=== PATIENT | female | born 1950 | race Two or more races ===

== ENCOUNTER 2025-02-10 11:36 | Inpatient (IN) | payer OTHER ==
[~2025-02-10] VITALS: Ht 160 cm; Wt 53.4 kg
--- NOTE | 2025-02-10 12:31 | ED.PDOC ---
History of Present Illness HPI Comments 74-year-old female BIBA with prior medical history of COPD (uses 4 L of O2 at home), AFib (takes Eliquis) and a chief complaint of generalized weakness. Patient's spouse reports that the patient has been having generalized weakness for three days in his he has been experiencing multiple ground level falls. Patient recently had his ground level fall yesterday and EMS were called on scene for which they did the vitals in noticed that the patient's blood pressure was low. Patient did deny transport to the hospital. Spouse reports that the patient had worsening generalized weakness last night as the patient was trying to get out of bed to use the bathroom associated with mumbling. When EMS arrived on scene today patient was placed in 18 on the left AC and was satting at high 80's on 4 L of O2 for which she uses at home. Denies any other symptoms at this time. Denies chills, fever, N/V/D, CP. No other associated symptoms, modifiers, recent injuries or sick contacts present at this time. Chief Complaint: General Weakness Time Seen by MD: 12:30 Reviewed Notes: Nurses Notes, Medications, Allergies Allergies: Coded Allergies: No Known Drug Allergy (Verified Allergy, Unknown, 02/10/25) Information Source: Patient Mode of Arrival: EMS Severity: Moderate Timing: Days Duration: Since onset, Days Prehospital treatment: None Past Medical History PAST MEDICAL HISTORY: AFIB (Takes Eliquis), COPD Past Medical History (Other): Uses 4 L of O2 at home Surgical History: Denies all surgeries DIRECTOR MONEY History: No Pertinent DIRECTOR MONEY History Family History Family History: Reviewed,noncontributory to illness, Unknown Social History Smoker: Non-Smoker Alcohol: Denies ETOH Use Drugs: Denies Drug Use Lives In: Home Constitutional: reports: weakness; denies: chills, diaphoresis, fatigue, fever, malaise, sweats, others EENTM: denies: blurred vision, double vision, ear bleeding, ear discharge, ear drainage, ear pain, ear ringing, eye pain, eye redness, hearing loss, mouth pain, mouth swelling, nasal discharge, nose bleeding, nose congestion, nose pain, photophobia, tearing, throat pain, throat swelling, voice changes, others Respiratory: reports: shortness of breath; denies: cough, hemoptysis, orthopnea, SOB at rest, SOB with excertion, stridor, wheezing, others Cardiovascular: denies: chest pain, dizzy spells, diaphoresis, Dyspnea on exertion, edema, irregular heart beat, left arm pain, lightheadedness, palpitations, PND, syncope, others Gastrointestinal: denies: abdomen distended, abdominal pain, blood streaked bowels, constipated, diarrhea, dysphagia, difficulty swallowing, hematemesis, melena, nausea, poor appetite, poor fluid intake, rectal bleeding, rectal pain, vomiting, others Genitourinary: denies: abnormal vagina bleeding, burning, dyspareunia, dysuria, flank pain, frequency, hematuria, incontinence, pain, , vagina discharge, urgency, others Neurological: denies: dizziness, fainting, headache, left sided numbness, left sided weakness, numbness, paresthesia, pre-existing deficit, right sided numbness, right sided weakness, seizure, speech problems, tingling, tremors, weakness, others Musculoskeletal: denies: back pain, gout, joint pain, joint swelling, muscle pain, muscle stiffness, neck pain, others Integumetry: denies: bruises, change in color, change in hair/nails, dryness, laceration, lesions, lumps, rash, wounds, others Allergic/Immunocompromised: denies: Difficulty Healing, Frequent Infections, Hives, Itching, others Hematologic/Lymphatic: denies: anemia, blood clots, easy bleeding, easy bruising, swollen glands, others Endocrine: denies: excessive hunger, excessive sweating, excessive thirst, excessive urination, flushing, intolerance to cold, intolerance to heat, unexplained weight gain, unexplained weight loss, others Psychiatric: denies: anxiety, bipolar disorder, depression, hopeless, panic disorder, schizophrenia, sleepless, suicidal, others All Other Systems: Reviewed and Negative Physical Exam Exam Comments Lungs are currently clear and the patient is mumbling at this time General Appearance: No Apparent Distress, Normal HEENT: Normal ENT Inspection, Pharynx Normal, TMs Normal Neck: Full Range of Motion, Non-Tender, Normal, Normal Inspection Respiratory: Chest Non-Tender, Lungs Clear, No Accessory Muscle Use, No Respiratory Distress, Normal Breath Sounds Cardiovascular: No Edema, No JVD, No Murmur, No Gallop, Normal Peripheral Pulses, Regular Rate/Rhythm Breast Exam: Deferred Gastrointestinal: No Organomegaly, Non Tender, No Pulsatile Mass, Normal Bowel Sounds, Soft Genitalia: Deferred Pelvic: Deferred Rectal: Deferred Extremities: No calf tenderness, Normal capillary refill, Normal inspection, Normal range of motion, Non-tender, No pedal edema Musculoskeletal : Apperance: Normal Neurologic: Alert, day camp counselor II-XII nml as Tested, No Motor Deficits, Normal Affect, Normal Mood, No Sensory Deficits Cerebellar Function: Normal Reflexes: Normal Skin: Dry, Normal Color, Warm Lymphatic: No Adenopathy Was a procedure done? Was a procedure done?: No Differential Dx Considerations may include: Pneumonia, urinary tract infection, sepsis, CHF exacerbation, COPD X-Ray, Labs, Meds, VS Vital Signs Date Time Temp Pulse Resp B/P (MAP) Pulse Ox O2 Delivery O2 Flow Rate FiO2 02/10/25 14:55 109 12 108/73 (85) 95 02/10/25 12:00 102 02/10/25 12:00 Nasal Cannula* 4 36 02/10/25 12:00 97.7 90 12 115/71 (86) 88 97.7 02/10/25 11:45 98.3 107 14 114/73 93 98.3 Lab Test 02/10/25 12:39 02/10/25 12:35 Range/Units White Blood Count 11.3 H 4.4-10.8 10^3/uL Red Blood Count 5.42 H 4.0-5.20 10^6/uL Hemoglobin 10.5 L 12.2-16.2 g/dL Hematocrit 36.0 36.0-46.0 % Mean Corpuscular Volume 66.3 L 80.0-100.0 fL Mean Corpuscular Hemoglobin 19.4 L 28.0-32.0 pg Mean Corpuscular Hemoglobin Concent 29.2 L 32.0-36.0 g/dL Red Cell Distribution Width 20.8 H 11.8-14.3 % Platelet Count 253 140-450 10^3/uL Mean Platelet Volume 9.1 6.9-10.8 fL Neutrophils (%) (Auto) 81.3 H 37.0-80.0 % Lymphocytes (%) (Auto) 5.3 L 10.0-50.0 % Monocytes (%) (Auto) 11.1 0.0-12.0 % Eosinophils (%) (Auto) 0.5 0.0-7.0 % Basophils (%) (Auto) 1.8 0.0-2.0 % Neutrophils # (Auto) 9.2 H 1.6-8.6 10 ^3/uL Lymphocytes # (Auto) 0.6 0.4-5.4 10 ^3/uL Monocytes # (Auto) 1.3 0-1.3 10 ^3/uL Eosinophils # (Auto) 0.1 0-0.8 10 ^3/uL Basophils # (Auto) 0.2 0-0.2 10 ^3/uL Nucleated Red Blood Cells 0.4 % Platelet Estimate Adequate Hypochromasia (manual) Slight Anisocytosis (manual) Slight Microcytosis Slight Sodium Level 146 H 136-145 mmol/L Potassium Level 3.8 3.5-5.1 mmol/L Chloride Level 105 98-107 mmol/L Carbon Dioxide Level 28 20-31 mmol/L Anion Gap 13 5-15 Blood Urea Nitrogen 31 H 9-23 mg/dL Creatinine 1.30 H 0.550-1.02 mg/dL Glomerular Filtration Rate Calc 43 >90 mL/min BUN/Creatinine Ratio 23.8 H 10.0-20.0 Serum Glucose 88 74-106 mg/dL Lactic Acid Level 1.8 0.4-2.0 mmol/L Calcium Level 8.1 L 8.7-10.4 mg/dL Total Bilirubin 1.3 H 0.2-1.0 mg/dL Aspartate Amino Transferase (AST) 69 H 13-40 U/L Alanine Aminotransferase (ALT) 41 H 7-40 U/L Alkaline Phosphatase 145 H 46-116 U/L Total Protein 5.2 L 5.7-8.2 g/dL Albumin 3.2 3.2-4.8 g/dL Urine Color Yellow Yellow Urine Clarity Clear Clear Urine pH 5.5 5.0-9.0 Urine Specific [place] 1.021 1.001-1.035 Urine Protein Trace H Negative Urine Ketones Trace Negative Urine Blood Negative Negative /uL Urine Nitrite Negative Negative Urine Bilirubin Negative Negative Urine Urobilinogen 2 H Negative mg/dL Urine Leukocyte Esterase Negative Negative /uL Urine RBC 1 0 - 4 /hpf Urine Microscopic WBC 5 0-5 /HPF Urine Squamous Epithelial Cells Few <5 /hpf Urine Bacteria Few H None Seen /hpf Urine Hyaline Casts Many 0 - 2 /lpf Urine Mucus Few None Seen Urine Glucose Normal Normal mg/dL Urine Opiates Screen Neg NEGATIVE Urine Fentanyl Screen Neg NEGATIVE Urine Barbiturates Screen Neg NEGATIVE Urine Phencyclidine Screen Neg NEGATIVE Urine Amphetamines Screen Neg NEGATIVE Urine Benzodiazepines Screen Pos NEGATIVE Urine Cocaine Screen Neg NEGATIVE Urine Cannabinoids Screen Pos NEGATIVE Current Medications Medications (Trade) Dose Ordered Sig/Nicolas Route Start Time Stop Time Status Last Admin Sodium Chloride 1,000 ml @ 1,000 mls/hr Q1H ONCE IV 02/10/25 14:45 02/10/25 15:44 02/10/25 15:02 X-Ray, Labs, Meds, VS Comment Patient will be admitted for generalized weakness, multiple falls, metabolic encephalopathy Recommend urology consult Recommend cardiology consult Signs of possible dehydration, patient given in his bolus Will recheck CMP and kidney function Patient hemodynamically stable Patient on 6 L non-rebreather Time of 1ST Reevaluation: 13:00 Reevaluation 1ST: Unchanged Patient Education/Counseling: Diagnosis, Treatment, Prognosis Family Education/Counseling: Diagnosis, Treatment, Prognosis SEPSIS Sepsis Screen Date sepsis recognized/suspect: Feb 10, 2025 Time Sepsis recognized/suspect: 1144 Recent Procedure: No On Antibiotic Therapy: No Respiratory Rate >20: No Heart Rate >90: No Temp<36 C (96.8 F) or >38.3 C: No SBP <90 or MAP <65 mmHG: No New Acute Mental Status Change: No Is the patient on CPAP, BIPAP,: No Physician Orders Chest Xray 1 View (02/10/25 12:21) Head Without Contrast (02/10/25 12:42) Sodium Chloride 0.9% (02/10/25 14:45) Vital Signs Date Time Temp Pulse Resp B/P (MAP) Pulse Ox O2 Delivery O2 Flow Rate FiO2 02/10/25 14:55 109 12 108/73 (85) 95 02/10/25 12:00 102 02/10/25 12:00 Nasal Cannula* 4 36 02/10/25 12:00 97.7 90 12 115/71 (86) 88 97.7 02/10/25 11:45 98.3 107 14 114/73 93 98.3 Laboratory Tests Test 02/10/25 12:39 Lactic Acid Level 1.8 mmol/L (0.4-2.0) White Blood Count 11.3 10^3/uL (4.4-10.8) H Medications Medications Dose Ordered Sig/Nicolas Route Start Time Stop Time Status Last Admin Dose Admin Sodium Chloride 1,000 ml @ 1,000 mls/hr Q1H ONCE IV 02/10/25 14:45 02/10/25 15:44 02/10/25 15:02 Departure 1 Departure Time of Disposition: 15:42 Impression: Primary Impression: Metabolic encephalopathy Additional Impressions: Hypernatremia Generalized weakness COPD (chronic obstructive pulmonary disease) Qualified Codes: J41.0 - Simple chronic bronchitis Disposition: ADMITTED INPATIENT Condition: Stable Critical Care Note Critical Care Time?: No Stability Stability form required: No Heart Score Heart Score: Heart Score Response (Comments) Value History N/A 0 EKG N/A 0 Age N/A 0 Risk Factors N/A 0 Troponin N/A 0 Total 0 I personally scribed for KENTON JEFFERS ([email or web address]) on 02/10/25 at 12:31. Electronically submitted by Atif Chew ([email or web address]). KENTON JEFFERS Feb 10, 2025 12:31
[2025-02-10 12:57] LABS: Hematocrit 36.0 % (36.0-46.0); Nucleated Red Blood Cells % 0.4 %
[2025-02-10 12:58] LABS: Hemoglobin 10.5 g/dL (12.2-16.2); Mean Corpuscular Hemoglobin 19.4 pg (28.0-32.0); Mean Corpuscular Volume 66.3 fL (80.0-100.0)
[2025-02-10 13:02] LABS: Urine Protein, UAD TRACE (Negative)
--- NOTE | 2025-02-10 13:03 | DVH ---
CHEST RADIOGRAPH Indication: sob Technique: Single frontal view of the chest was obtained COMPARISON: None FINDINGS: Lines and Tubes: None Lungs: Increased interstitial prominence. This may represent pulmonary vascular congestion and/or viral pneumonia. Lucency in the left lung apex is felt to represent artifact versus possible small left apical pneumothorax. Pleura: No pleural effusion Cardiomediastinal contours: Cardiomegaly. Bones: Unremarkable IMPRESSION: Cardiomegaly with pulmonary vascular congestion. Lucency in the left lung apex is felt to represent artifact versus possible less likely small left apical pneumothorax.
[2025-02-10 13:20] LABS: Chloride 105 mmol/L (98-107); Potassium 3.8 mmol/L (3.5-5.1)
[2025-02-10 13:22] LABS: Anisocytosis Slight
[2025-02-10 13:27] LABS: Amphetamine Screen, Urine Neg (NEGATIVE)
[2025-02-10 13:28] LABS: Barbiturate Scree,Urine Neg (NEGATIVE); Benzodiazephine Screen, Urine Pos (NEGATIVE); Cannabinoid Screen, Urine Pos (NEGATIVE); Cocaine Screen, Urine Neg (NEGATIVE); Opiate Scree,Urine Neg (NEGATIVE); Phencyclidine Screen, Urine Neg (NEGATIVE)
[2025-02-10 13:30] LABS: Sodium 146 mmol/L (136-145)
--- NOTE | 2025-02-10 13:45 | DVH ---
EXAM: CT HEAD WITHOUT CONTRAST INDICATION: S/P FALL AT HOME TECHNIQUE: CT of the head without intravenous contrast. Radiation Dose Information: CT Dose: CTDI volume is 52.97 mGy. Dose-length product is 955.11 mGy*cm The dose indicators for CT are the volume Computed Tomography (CT) Dose Index (CTDIvol) and the Dose Length Product (DLP), and are measured in units of mGy and mGy-cm, respectively. These indicators are not patient dose, but values generated from the CT scanner acquisition factors. The report includes radiation exposure data for exposures received during this examination. COMPARISON: None FINDINGS: There is no evidence of acute intracranial hemorrhage, extra-axial collection, mass effect, midline shift, herniation or hydrocephalus. The ventricles, sulci and cisterns are age appropriate. The glass-white differentiation is intact. Patchy periventricular and subcortical white matter hypoattenuation is nonspecific but may be related to small vessel ischemic disease. The visualized paranasal sinuses and mastoid air cells are clear. The surrounding soft tissues and osseous structures are unremarkable. IMPRESSION: No acute intracranial abnormality.
[2025-02-10 13:52] LABS: Albumin 3.2 g/dL (3.2-4.8); Anion Gap 13 (5-15); BUN/Creatinine Ratio 23.8 (10.0-20.0); Carbon Dioxide 28 mmol/L (20-31); Glucose 88 mg/dL (74-106)
[2025-02-10 13:53] LABS: Alanine Aminotransferase 41 U/L (7-40); Alkaline Phosphatase 145 U/L (46-116); Bilirubin, Total 1.3 mg/dL (0.2-1.0); Blood Urea Nitrogen 31 mg/dL (9-23); Calcium 8.1 mg/dL (8.7-10.4); Total Protein 5.2 g/dL (5.7-8.2)
[2025-02-10] MEDS: SODIUM CHLORIDE 0.9% 1,000 ML IV ONE (15:02)
[2025-02-10] MEDS ORDERED: HYDROcodone-ACET 5/325MG TAB PO PRN (17:00)
[2025-02-10] MEDS ORDERED: FURO40TA4 PO (17:21)
[2025-02-10] MEDS ORDERED: APIX5TAB PO (17:21)
[2025-02-10] MEDS ORDERED: ZOLP10TA6 PO (17:21)
--- NOTE | 2025-02-10 17:36 | DVHHP2 ---
History of Present Illness Reason for Visit: Generalized weakness History of Present Illness Jessica Roman is a 74-year-old female with past medical history of atrial fibrillation, COPD, and neurofibromatosis, who was brought to the hospital by EMS for generalized weakness. Patient lives with her , he is at the bedside. The patient is drowsy and falling asleep during the assessment. states she has been tired and lethargic for about 2 weeks. She started having frequent falls a couple days ago as well. Yesterday she fell and he had to call EMS to help get her up. When they were there they noted that her blood pressure was low, but she refused to come to the hospital. Patient fell again this morning, and her had to call EMS again to help him. Her blood pressure was low and she was brought to the hospital. also states that her oxygenation has been low at home and he has increased her from 3L N/C to 4-5L N/C, and that she has had a poor appetite the last couple of weeks. Cardiovascular: AFIB Pulmonary: COPD Dermatology: Other (neurofibromatosis) Past Surgical History: None Family History: None Smoke: No ALCOHOL: none Drugs: None Lives: with Family Domestic Violence: Neg Review of Systems Constitutional: Yes: Weakness, Malaise; No: Fever, Chills, Sweats, Other Eyes: No: Pain, Vision change, Conjunctivae inflammation, Eyelid inflammation, Other, Redness ENT: No: Ear pain, Ear discharge, Nose pain, Nose discharge, Nose congestion, Mouth pain, Mouth swelling, Throat pain, Throat swelling, Other Respiratory: Shortness of breath; No: Cough, Dry, SOB with excertion, Wheezing, Hemoptysis, Pleuritic Pain, Sputum, Wheezing, Other Cardiovascular: No: Chest Pain, Palpitations, Orthopnea, Paroxysmal Noc. Dyspnea, Edema, Lt Headedness, Other Gastrointestinal: No: Nausea, Vomiting, Abdominal Pain, Diarrhea, Constipation, Melena, Hematochezia, Other Genitourinary: No Dysuria, No Frequency, No Incontinence, No Hematuria, No Retention, No Other Musculoskeletal: No: other, neck pain, shoulder pain, arm pain, back pain, hand pain, leg pain, foot pain Skin: No: Rash, Lesions, Jaundice, Bruising, Other Neurological: Weakness, Incoordination; No: Numbness, Change in speech, Confusion, Seizures, Other Allergies: Coded Allergies: No Known Drug Allergy (Verified Allergy, Unknown, 02/10/25) Exam Vital Signs Vital Signs Date Time Temp Pulse Resp B/P (MAP) Pulse Ox O2 Delivery O2 Flow Rate FiO2 02/10/25 14:55 109 12 108/73 (85) 95 02/10/25 12:00 Nasal Cannula* 4 36 02/10/25 12:00 97.7 97.7 General Appearance: Oriented X3, Cooperative, moderate distress, Other (drowsy) HEENT: Atraumatic, PERRLA, Other (mucous membr dry) Respiratory: Other (diminished breath sounds) Cardiovascular: Normal S1, Normal S2, Other (atrial fibrillation) Abdominal: Normal bowel sounds, Soft, No tenderness Extremities: No clubbing, No cyanosis, No edema, Normal pulses Skin: No rashes, No breakdown, No significant lesion Neuro: Other (generalized weakness, not able to walk at this time) Psych/Mental Status: Mood NL Labs/Xrays Labs Test 02/10/25 12:39 02/10/25 12:35 Range/Units White Blood Count 11.3 H 4.4-10.8 10^3/uL Red Blood Count 5.42 H 4.0-5.20 10^6/uL Hemoglobin 10.5 L 12.2-16.2 g/dL Hematocrit 36.0 36.0-46.0 % Mean Corpuscular Volume 66.3 L 80.0-100.0 fL Mean Corpuscular Hemoglobin 19.4 L 28.0-32.0 pg Mean Corpuscular Hemoglobin Concent 29.2 L 32.0-36.0 g/dL Red Cell Distribution Width 20.8 H 11.8-14.3 % Platelet Count 253 140-450 10^3/uL Mean Platelet Volume 9.1 6.9-10.8 fL Neutrophils (%) (Auto) 81.3 H 37.0-80.0 % Lymphocytes (%) (Auto) 5.3 L 10.0-50.0 % Monocytes (%) (Auto) 11.1 0.0-12.0 % Eosinophils (%) (Auto) 0.5 0.0-7.0 % Basophils (%) (Auto) 1.8 0.0-2.0 % Neutrophils # (Auto) 9.2 H 1.6-8.6 10 ^3/uL Lymphocytes # (Auto) 0.6 0.4-5.4 10 ^3/uL Monocytes # (Auto) 1.3 0-1.3 10 ^3/uL Eosinophils # (Auto) 0.1 0-0.8 10 ^3/uL Basophils # (Auto) 0.2 0-0.2 10 ^3/uL Nucleated Red Blood Cells 0.4 % Platelet Estimate Adequate Hypochromasia (manual) Slight Anisocytosis (manual) Slight Microcytosis Slight Sodium Level 146 H 136-145 mmol/L Potassium Level 3.8 3.5-5.1 mmol/L Chloride Level 105 98-107 mmol/L Carbon Dioxide Level 28 20-31 mmol/L Anion Gap 13 5-15 Blood Urea Nitrogen 31 H 9-23 mg/dL Creatinine 1.30 H 0.550-1.02 mg/dL Glomerular Filtration Rate Calc 43 >90 mL/min BUN/Creatinine Ratio 23.8 H 10.0-20.0 Serum Glucose 88 74-106 mg/dL Lactic Acid Level 1.8 0.4-2.0 mmol/L Calcium Level 8.1 L 8.7-10.4 mg/dL Total Bilirubin 1.3 H 0.2-1.0 mg/dL Aspartate Amino Transferase (AST) 69 H 13-40 U/L Alanine Aminotransferase (ALT) 41 H 7-40 U/L Alkaline Phosphatase 145 H 46-116 U/L Total Protein 5.2 L 5.7-8.2 g/dL Albumin 3.2 3.2-4.8 g/dL Urine Color Yellow Yellow Urine Clarity Clear Clear Urine pH 5.5 5.0-9.0 Urine Specific [place] 1.021 1.001-1.035 Urine Protein Trace H Negative Urine Ketones Trace Negative Urine Blood Negative Negative /uL Urine Nitrite Negative Negative Urine Bilirubin Negative Negative Urine Urobilinogen 2 H Negative mg/dL Urine Leukocyte Esterase Negative Negative /uL Urine RBC 1 0 - 4 /hpf Urine Microscopic WBC 5 0-5 /HPF Urine Squamous Epithelial Cells Few <5 /hpf Urine Bacteria Few H None Seen /hpf Urine Hyaline Casts Many 0 - 2 /lpf Urine Mucus Few None Seen Urine Glucose Normal Normal mg/dL Urine Opiates Screen Neg NEGATIVE Urine Fentanyl Screen Neg NEGATIVE Urine Barbiturates Screen Neg NEGATIVE Urine Phencyclidine Screen Neg NEGATIVE Urine Amphetamines Screen Neg NEGATIVE Urine Benzodiazepines Screen Pos NEGATIVE Urine Cocaine Screen Neg NEGATIVE Urine Cannabinoids Screen Pos NEGATIVE EXAM: CT HEAD WITHOUT CONTRAST FINDINGS: There is no evidence of acute intracranial hemorrhage, extra-axial collection, mass effect, midline shift, herniation or hydrocephalus. The ventricles, sulci and cisterns are age appropriate. The glass-white differentiation is intact. Patchy periventricular and subcortical white matter hypoattenuation is nonspecif ic but may be related to small vessel ischemic disease. The visualized paranasal sinuses and mastoid air cells are clear. The surrounding soft tissues and osseous structures are unremarkable. IMPRESSION: No acute intracranial abnormality. CHEST RADIOGRAPH FINDINGS: Lines and Tubes: None Lungs: Increased interstitial prominence. This may represent pulmonary vascular congestion and/or viral pneumonia. Lucency in the left lung apex is felt to represent artifact versus possible small left apical pneumothorax. Pleura: No pleural effusion Cardiomediastinal contours: Cardiomegaly. Bones: Unremarkable IMPRESSION: Cardiomegaly with pulmonary vascular congestion. Lucency in the left lung apex is felt to represent artifact versus possible less likely small left apical pneumothorax. SEPSIS Sepsis Screen Date sepsis recognized/suspect: Feb 10, 2025 Time Sepsis recognized/suspect: 1144 Recent Procedure: No On Antibiotic Therapy: No Respiratory Rate >20: No Heart Rate >90: No Temp<36 C (96.8 F) or >38.3 C: No SBP <90 or MAP <65 mmHG: No New Acute Mental Status Change: No Is the patient on CPAP, BIPAP,: No Physician Orders Chest Xray 1 View (02/10/25 12:21) Head Without Contrast (02/10/25 12:42) Admit (02/10/25 16:58) Code Status (02/10/25 16:58) 2 Gm Sodium Diet (02/10/25 Dinner) Hydrocodone-Acet 5/325mg Tab (Kiron 5/32 (02/10/25 17:00) Ondansetron Hcl (Zofran) (02/10/25 17:00) Docusate Sodium Capsule (Colace Capsule) (02/10/25 17:00) Fall Risk Precautions In Place QSHIFT (02/10/25 16:58) Complete Blood Count (02/11/25 04:00) Comprehensive Metabolic Panel (02/11/25 04:00) Pt Request For Service (02/10/25 16:58) Condition: Serious (02/10/25 16:58) Acetaminophen Tablet (Tylenol Tablet) (02/10/25 17:00) Ct Chest With And Wo (02/10/25 16:58) Vital Signs Date Time Temp Pulse Resp B/P (MAP) Pulse Ox O2 Delivery O2 Flow Rate FiO2 02/10/25 14:55 109 12 108/73 (85) 95 02/10/25 12:00 102 02/10/25 12:00 Nasal Cannula* 4 36 02/10/25 12:00 97.7 90 12 115/71 (86) 88 97.7 02/10/25 11:45 98.3 107 14 114/73 93 98.3 Laboratory Tests Test 02/10/25 12:39 Lactic Acid Level 1.8 mmol/L (0.4-2.0) White Blood Count 11.3 10^3/uL (4.4-10.8) H Medications Medications Dose Ordered Sig/Nicolas Route Start Time Stop Time Status Last Admin Dose Admin Sodium Chloride 1,000 ml @ 1,000 mls/hr Q1H ONCE IV 02/10/25 14:45 02/10/25 15:44 DC 02/10/25 15:02 1,000 MLS/HR Assessment/Plan Assessment/Plan Assessment: Metabolic encephalopathy, Hypoxemia, Possible lung mass, Transaminitis, Dehydration, Malnutrition, Atrial fibrillation, COPD, Neurofibromatosis, Plan: Admit to Med-Surg, CT of chest with contrast, Breathing treatments, Supplemental oxygen, Physical therapy, IV hydration, Consider liver ultrasound, Home medications reconciled, Plan discussed with: Patient My Orders Orders - CINDY MCCLURE Procedure Category Date Status Time Admit ADMIT 02/10/25 Transmitted 16:58 Code Status CODE 02/10/25 Transmitted 16:58 2 Gm Sodium Diet DIET 02/10/25 Transmitted Dinner Hydrocodone-Acet PHA 02/10/25 Transmitted 5/325mg Tab (Kiron 17:00 Ondansetron Hcl PHA 02/10/25 Transmitted (Zofran) 17:00 Docusate Sodium PHA 02/10/25 Transmitted Capsule (Colace 17:00 Fall Risk Precautions KRISHNA 02/10/[address] 16:58 Complete Blood Count LAB 02/11/25 Verified 04:00 Comprehensive LAB 02/11/25 Verified Metabolic Panel 04:00 Pt Request For Service PT 02/10/25 Transmitted 16:58 Condition: Serious KRISHNA 02/10/25 In Process 16:58 Acetaminophen Tablet PHA 02/10/25 Transmitted (Tylenol Tablet) 17:00 Ct Chest With And Wo CT 02/10/25 Transmitted 16:58 Date of Service: Feb 10, 2025 Billing Provider: CINDY MCCLURE Common Visit Codes: [id number] INP/OBS CARE (HIGH) CINDY MCCLURE Feb 10, 2025 17:36
[2025-02-10 17:41] VITALS: O2SAT 95
[2025-02-10 17:44] VITALS: RESP 20; O2SAT 95
[2025-02-10] MEDS: SOD CHL 0.45% 1,000 ML IV ONE (17:49)
[2025-02-10 18:12] VITALS: BP 108/73; PULSE 109; RESP 20; TEMP 97.7; O2SAT 97
--- NOTE | 2025-02-10 18:22 | DVH ---
CONTRAST ENHANCED CHEST COMPUTERIZED TOMOGRAPHY REASON FOR STUDY: Possible mass. Possible left apical pneumothorax on radiograph. COMPARISON: XY CHEST XRAY 1 VIEW on DOS: 02/10/25 TECHNIQUE: Axial CT images of the chest were obtained after the uneventful intravenous administration of contrast. 2-D coronal and sagittal reformatted images were provided. Radiation optimization: All CT scans at this facility use at least one of these dose optimization techniques: Automated exposure control mA and/or kV adjustment per patient size (includes targeted exams where dose is matched to clinical indication) or iterative reconstruction. RADIATION DOSE: CTDI: 10 mGy DLP: 340 mGy-cm CONTRAST: 90 mL Omnipaque 300 FINDINGS: There is subsegmental dependent atelectasis in bilateral lower lobes, [id number]-mhoz-left. There is no bronchiectasis or honeycombing. There is no pneumothorax. There is trace bilateral pleural effusion, [id number]-[id number]-[id number]-left. There is a heterogeneous, enlarged, multinodular thyroid. The heart is significantly enlarged, especially the right atrium and right ventricle. The pulmonary artery is significantly enlarged at 4.7 cm, larger than the aorta, suggestive of pulmonary arterial hypertension. No pulmonary arterial filling defect is identified as far as the interlobar level to suggest pulmonary embolism. There is no pericardial effusion. No pathologic lymphadenopathy is identified by size criteria. There are surgical changes at the diaphragmatic hiatus. 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 There are old healed fractures of the left 8th, 9th, and 10th ribs. No acute osseous abnormality is identified. There are numerous polypoid lesions on the skin. IMPRESSION: Significant cardiomegaly, especially the right atrium and right ventricle. Pulmonary arterial enlargement, suggestive of pulmonary arterial hypertension. Trace bilateral pleural effusions, [id number]-dwqg-left. Bilateral lower lobe subsegmental dependent atelectasis, [id number]-[id number]-jgkd-left. No pneumothorax. Enlarged, heterogeneous multinodular thyroid. Nonemergent thyroid ultrasound is recommended.
[2025-02-10 19:46] VITALS: PULSE 92; RESP 14; O2SAT 96
[2025-02-10 20:00] VITALS: PULSE 92; RESP 14; O2SAT 95
[2025-02-10 21:00] VITALS: BP 123/76; PULSE 92; RESP 13; TEMP 98.7; O2SAT 100
[2025-02-10] MEDS: APIXABAN 5 MG TAB PO SCH (21:23)
[2025-02-10] MEDS: ZOLPIDEM TARTRATE 5 MG TAB PO SCH (21:23)
[2025-02-11] VITALS (11 sets, daily range): BP systolic 94–131; BP diastolic 53–75; PULSE 55–105; RESP 16–21; TEMP 97.9–98.7; O2SAT 90–97
[2025-02-11 06:15] LABS: Hemoglobin 10.6 g/dL (12.2-16.2); Nucleated Red Blood Cells % 0.5 %
[2025-02-11 06:17] LABS: Hematocrit 37.1 % (36.0-46.0); Mean Corpuscular Hemoglobin 20.0 pg (28.0-32.0); Mean Corpuscular Volume 69.6 fL (80.0-100.0)
[2025-02-11] MEDS: FUROSEMIDE 40 MG TAB PO SCH (06:19)
[2025-02-11 07:07] LABS: Anisocytosis Slight
[2025-02-11 07:09] LABS: Ovalocytes FEW
[2025-02-11] MEDS: ALBUTEROL SULF 2.5 MG/0.5ML(0.5%) NEB SOLN NEB PRN (07:23)
[2025-02-11] MEDS: IPRATROPIUM BROM 0.5 MG/2.5ML INH SOL NEB PRN (07:23)
[2025-02-11 09:26] LABS: Albumin 3.3 g/dL (3.2-4.8); Anion Gap 13 (5-15); BUN/Creatinine Ratio 22.2 (10.0-20.0); Bilirubin, Total 1.2 mg/dL (0.2-1.0); Blood Urea Nitrogen 18 mg/dL (9-23); Carbon Dioxide 27 mmol/L (20-31); Chloride 103 mmol/L (98-107); Glucose 94 mg/dL (74-106); Sodium 143 mmol/L (136-145)
[2025-02-11 09:30] LABS: Alanine Aminotransferase 86 U/L (7-40); Alkaline Phosphatase 144 U/L (46-116); Calcium 8.1 mg/dL (8.7-10.4); Potassium 3.4 mmol/L (3.5-5.1); Total Protein 5.5 g/dL (5.7-8.2)
[2025-02-11] MEDS: CALCIUM CARB 500 MG CHEW TAB PO PRN (12:46)
[2025-02-11] MEDS: ONDANSETRON HCL 4 MG/2 ML VIAL IV PRN (13:19)
--- NOTE | 2025-02-11 15:08 | DVHPN2 ---
Reviewed: Care Plan, H&P, Labs, Medications, Previous Orders, Radiology Changes from previous H/P or p: No Changes General: Per HPI Eyes: No Pain, No Vision change, No Conjunctivae inflammation, No Eyelid inflammation, No Other, No Redness ENT: No Ear pain, No Ear discharge, No Nose pain, No Nose discharge, No Nose congestion, No Mouth pain, No Mouth swelling, No Throat pain, No Throat swelling, No Other Cardiovascular: No Chest Pain, No Palpitations, No Orthopnea, No Paroxysmal Noc. Dyspnea, No Edema, No Lt Headedness, No Other Respiratory: No Cough, No Dry; Shortness of breath; No SOB with excertion, No Wheezing, No Hemoptysis, No Pleuritic Pain, No Sputum, No Other Gastrointestinal: No Nausea, No Vomiting, No Abdominal Pain, No Diarrhea, No Constipation, No Melena, No Hematochezia, No Other Genitourinary: No Dysuria, No Frequency, No Incontinence, No Hematuria, No Retention, No Other Musculoskeletal: No other, No neck pain, No shoulder pain, No arm pain, No back pain, No hand pain, No leg pain, No foot pain Skin: No Rash, No Lesions, No Jaundice, No Bruising, No Other Objective Vitals Vital Signs Date Time Temp Pulse Resp B/P (MAP) Pulse Ox O2 Delivery O2 Flow Rate FiO2 02/11/25 13:00 98.2 55 16 119/71 (87) 90 98.2 02/11/25 08:00 Nasal Cannula* 5 40 Intake/Output Intake and Output 02/11/25 07:00 Intake Total 1600 ml Balance 1600 ml Intake Oral 600 ml IV Total 1000 ml # Voids 3 Medications Current Medications Medications Dose Ordered Sig/Nicolas Route Start Time Stop Time Status Last Admin Dose Admin Acetaminophen/ Hydrocodone Bitart 1 tab Q4HP PRN PO 02/10/25 17:00 Ondansetron HCl 4 mg Q4HP PRN IV 02/10/25 17:00 02/11/25 13:19 4 MG Docusate Sodium 100 mg BIDPRN PRN PO 02/10/25 17:00 Acetaminophen 650 mg Q6HP PRN PO 02/10/25 17:00 Ipratropium [place] 0.5 mg Q4HPRN PRN NEB 02/10/25 17:30 02/11/25 07:23 0.5 MG Albuterol 2.5 mg Q4HPRN PRN NEB 02/10/25 17:30 02/11/25 07:23 2.5 MG Apixaban 5 mg BID PO 02/10/25 22:00 02/11/25 09:40 5 MG Furosemide 40 mg QAM PO 02/11/25 07:00 02/11/25 06:19 40 MG Zolpidem Tartrate 10 mg HS PO 02/10/25 22:00 02/10/25 21:23 10 MG Calcium Carbonate 500 mg QIDPRN PRN PO 02/11/25 12:00 02/11/25 12:46 500 MG Laboratory Results Laboratory Tests 02/11/25 05:28 02/11/25 08:25 Chemistry Test 02/11/25 08:25 Albumin 3.3 g/dL (3.2-4.8) Calcium Level 8.1 mg/dL (8.7-10.4) L Total Protein 5.5 g/dL (5.7-8.2) L LFT Test 02/11/25 08:25 Alanine Aminotransferase (ALT) 86 U/L (7-40) H Alkaline Phosphatase 144 U/L (46-116) H Aspartate Amino Transferase (AST) 126 U/L (13-40) H Total Bilirubin 1.2 mg/dL (0.2-1.0) H Urinalysis Test 02/10/25 12:35 Urine Color Yellow (Yellow) Urine Clarity Clear (Clear) Urine pH 5.5 (5.0-9.0) Urine Specific [place] 1.021 (1.001-1.035) Urine Protein Trace (Negative) H Urine Ketones Trace (Negative) Urine Blood Negative /uL (Negative) Urine Nitrite Negative (Negative) Urine Bilirubin Negative (Negative) Urine Urobilinogen 2 mg/dL (Negative) H Urine Leukocyte Esterase Negative /uL (Negative) Urine RBC 1 /hpf (0 - 4) Urine Microscopic WBC 5 /HPF (0-5) Urine Squamous Epithelial Cells Few /hpf (<5) Urine Bacteria Few /hpf (None Seen) H Urine Hyaline Casts Many /lpf (0 - 2) Urine Mucus Few (None Seen) Urine Glucose Normal mg/dL (Normal) Assessment/Plan Assessment/Plan Jessie Jessica is a 74-year-old female with past medical history of atrial fibrillation, COPD, and neurofibromatosis, who was brought to the hospital by EMS for generalized weakness. Patient lives with her , he is at the bedside. The patient is drowsy and falling asleep during the assessment. states she has been tired and lethargic for about 2 weeks. She started having frequent falls a couple days ago as well. Yesterday she fell and he had to call EMS to help get her up. When they were there they noted that her blood pressure was low, but she refused to come to the hospital. Patient fell again this morning, and her had to call EMS again to help him. Her blood pressure was low and she was brought to the hospital. also states that her oxygenation has been low at home and he has increased her from 3L N/C to 4-5L N/C, and that she has had a poor appetite the last couple of weeks. acute Metabolic encephalopathy, Hypoxemia, Possible lung mass, Transaminitis, Dehydration, Malnutrition, Atrial fibrillation, COPD, Neurofibromatosis sepsis with unclear source, suspected pna 02/11/25: pt is still altered, discussed with at bedside Plan discussed with: Patient My Orders Orders - EVETTE MCGRAW DO Procedure Category Date Status Time Calcium Carbonate PHA 02/11/25 In Process (Tums) 12:00 Date of Service: Feb 11, 2025 Billing Provider: EVETTE MCGRAW DO Common Visit Codes: [id number] INP/OBS CARE(HIGH) EVETTE MCGRAW DO Feb 11, 2025 15:08
[2025-02-11] MEDS: DOCUSATE SOD 100 MG CAP PO PRN (22:24)
[2025-02-12] VITALS (10 sets, daily range): BP systolic 100–127; BP diastolic 49–73; PULSE 74–111; RESP 16–22; TEMP 96.6–98.3; O2SAT 85–98
[2025-02-13] VITALS (14 sets, daily range): BP systolic 109–136; BP diastolic 75–96; PULSE 70–99; RESP 16–20; TEMP 97.6–98.5; O2SAT 85–96
--- NOTE | 2025-02-13 15:37 | DVHPN2 ---
Reviewed: Care Plan, H&P, Labs, Medications, Previous Orders, Radiology Changes from previous H/P or p: No Changes General: Per HPI Eyes: No Pain, No Vision change, No Conjunctivae inflammation, No Eyelid inflammation, No Other, No Redness ENT: No Ear pain, No Ear discharge, No Nose pain, No Nose discharge, No Nose congestion, No Mouth pain, No Mouth swelling, No Throat pain, No Throat swelling, No Other Cardiovascular: No Chest Pain, No Palpitations, No Orthopnea, No Paroxysmal Noc. Dyspnea, No Edema, No Lt Headedness, No Other Respiratory: No Cough, No Dry; Shortness of breath; No SOB with excertion, No Wheezing, No Hemoptysis, No Pleuritic Pain, No Sputum, No Other Gastrointestinal: No Nausea, No Vomiting, No Abdominal Pain, No Diarrhea, No Constipation, No Melena, No Hematochezia, No Other Genitourinary: No Dysuria, No Frequency, No Incontinence, No Hematuria, No Retention, No Other Musculoskeletal: No other, No neck pain, No shoulder pain, No arm pain, No back pain, No hand pain, No leg pain, No foot pain Skin: No Rash, No Lesions, No Jaundice, No Bruising, No Other Objective Vitals Vital Signs Date Time Temp Pulse Resp B/P (MAP) Pulse Ox O2 Delivery O2 Flow Rate FiO2 02/13/25 12:51 98.5 89 18 119/80 (93) 94 98.5 02/13/25 08:00 Nasal Cannula* 5 40 Intake/Output Intake and Output 02/13/25 07:00 Intake Total 440 ml Balance 440 ml Intake Oral 440 ml # Voids 6 Medications Current Medications Medications Dose Ordered Sig/Nicolas Route Start Time Stop Time Status Last Admin Dose Admin Acetaminophen/ Hydrocodone Bitart 1 tab Q4HP PRN PO 02/10/25 17:00 Ondansetron HCl 4 mg Q4HP PRN IV 02/10/25 17:00 02/13/25 11:04 4 MG Docusate Sodium 100 mg BIDPRN PRN PO 02/10/25 17:00 02/11/25 22:24 100 MG Acetaminophen 650 mg Q6HP PRN PO 02/10/25 17:00 Ipratropium [place] 0.5 mg Q4HPRN PRN NEB 02/10/25 17:30 02/11/25 07:23 0.5 MG Albuterol 2.5 mg Q4HPRN PRN NEB 02/10/25 17:30 02/11/25 07:23 2.5 MG Apixaban 5 mg BID PO 02/10/25 22:00 02/13/25 09:39 5 MG Furosemide 40 mg QAM PO 02/11/25 07:00 02/12/25 06:20 40 MG Zolpidem Tartrate 10 mg HS PO 02/10/25 22:00 02/12/25 22:27 10 MG Calcium Carbonate 500 mg QIDPRN PRN PO 02/11/25 12:00 02/13/25 11:04 500 MG Laboratory Results Laboratory Tests 02/11/25 05:28 02/11/25 08:25 Urinalysis Test 02/10/25 12:35 Urine Color Yellow (Yellow) Urine Clarity Clear (Clear) Urine pH 5.5 (5.0-9.0) Urine Specific [place] 1.021 (1.001-1.035) Urine Protein Trace (Negative) H Urine Ketones Trace (Negative) Urine Blood Negative /uL (Negative) Urine Nitrite Negative (Negative) Urine Bilirubin Negative (Negative) Urine Urobilinogen 2 mg/dL (Negative) H Urine Leukocyte Esterase Negative /uL (Negative) Urine RBC 1 /hpf (0 - 4) Urine Microscopic WBC 5 /HPF (0-5) Urine Squamous Epithelial Cells Few /hpf (<5) Urine Bacteria Few /hpf (None Seen) H Urine Hyaline Casts Many /lpf (0 - 2) Urine Mucus Few (None Seen) Urine Glucose Normal mg/dL (Normal) Assessment/Plan Assessment/Plan Jessica Roman is a 74-year-old female with past medical history of atrial fibrillation, COPD, and neurofibromatosis, who was brought to the hospital by EMS for generalized weakness. Patient lives with her , he is at the bedside. The patient is drowsy and falling asleep during the assessment. states she has been tired and lethargic for about 2 weeks. She started having frequent falls a couple days ago as well. Yesterday she fell and he had to call EMS to help get her up. When they were there they noted that her blood pressure was low, but she refused to come to the hospital. Patient fell again this morning, and her had to call EMS again to help him. Her blood pressure was low and she was brought to the hospital. also states that her oxygenation has been low at home and he has increased her from 3L N/C to 4-5L N/C, and that she has had a poor appetite the last couple of weeks. acute Metabolic encephalopathy, Hypoxemia, Possible lung mass, Transaminitis, Dehydration, Malnutrition, Atrial fibrillation, COPD, Neurofibromatosis sepsis with unclear source, suspected pna 02/11/25: pt is still altered, discussed with at bedside 02/12/2025: pt is agitated and still very short of breath 02/13/2025: pt remains encephalopathy, pt has been started on iv abx Plan discussed with: Spouse My Orders Orders - EVETTE MCGRAW DO Procedure Category Date Status Time Complete Blood Count LAB 02/13/25 Transmitted 15:27 Date of Service: Feb 13, 2025 Billing Provider: EVETTE MCGRAW DO Common Visit Codes: [id number] INP/OBS CARE(HIGH) EVETTE MCGRAW DO Feb 13, 2025 15:37
[2025-02-13 16:34] LABS: Hematocrit 35.0 % (36.0-46.0); Nucleated Red Blood Cells % 0.3 %
[2025-02-13 16:36] LABS: Hemoglobin 10.4 g/dL (12.2-16.2); Mean Corpuscular Hemoglobin 19.6 pg (28.0-32.0); Mean Corpuscular Volume 66.1 fL (80.0-100.0)
[2025-02-13 17:00] LABS: Anisocytosis Slight; Ovalocytes FEW; Polychromasia Slight; Stomatocytes Few
[2025-02-13] MEDS ORDERED: VANCOMYCIN PER PHARMACY 0 MG IV SCH (18:30)
[2025-02-13] MEDS: VANCOMYCIN 1GM/250ML KIT 250 ML IV ONE (20:03)
[2025-02-14 05:00] VITALS: BP 117/75; PULSE 101; RESP 20; TEMP 98.1; O2SAT 90
[2025-02-14 07:34] VITALS: O2SAT 90
[2025-02-14 08:57] VITALS: BP 119/79; PULSE 91; RESP 20; TEMP 98.2; O2SAT 92
[2025-02-14 10:32] LABS: Hemoglobin 10.3 g/dL (12.2-16.2); Mean Corpuscular Hemoglobin 19.7 pg (28.0-32.0)
[2025-02-14 10:35] LABS: Hematocrit 34.4 % (36.0-46.0); Mean Corpuscular Volume 66.2 fL (80.0-100.0); Nucleated Red Blood Cells % 0.2 %
[2025-02-14 11:23] LABS: Anion Gap 12 (5-15); BUN/Creatinine Ratio 21.2 (10.0-20.0); Blood Urea Nitrogen 14 mg/dL (9-23); Chloride 99 mmol/L (98-107); Glucose 94 mg/dL (74-106); Sodium 143 mmol/L (136-145)
[2025-02-14 11:24] LABS: Alanine Aminotransferase 136 U/L (7-40); Albumin 3.2 g/dL (3.2-4.8); Alkaline Phosphatase 230 U/L (46-116); Bilirubin, Total 1.0 mg/dL (0.2-1.0); Calcium 8.3 mg/dL (8.7-10.4); Carbon Dioxide 32 mmol/L (20-31); Potassium 3.4 mmol/L (3.5-5.1); Total Protein 5.2 g/dL (5.7-8.2)
[2025-02-14 13:30] VITALS: BP 117/80; PULSE 96; RESP 18; TEMP 98.1; O2SAT 92
[2025-02-14] MEDS: VANCOMYCIN 1GM/250ML KIT 250 ML IV SCH (16:25)
[2025-02-14 16:30] VITALS: BP 115/83; PULSE 99; RESP 18; TEMP 98.7; O2SAT 93
[2025-02-14] MEDS ORDERED: CEPH250C PO (17:15)
[2025-02-14 21:00] VITALS: BP 105/62; PULSE 93; RESP 18; TEMP 98.3; O2SAT 92
--- NOTE | 2025-02-14 23:24 | DVHPN2 ---
Reviewed: Care Plan, H&P, Labs, Medications, Previous Orders, Radiology Changes from previous H/P or p: No Changes General: Per HPI Eyes: No Pain, No Vision change, No Conjunctivae inflammation, No Eyelid inflammation, No Other, No Redness ENT: No Ear pain, No Ear discharge, No Nose pain, No Nose discharge, No Nose congestion, No Mouth pain, No Mouth swelling, No Throat pain, No Throat swelling, No Other Cardiovascular: No Chest Pain, No Palpitations, No Orthopnea, No Paroxysmal Noc. Dyspnea, No Edema, No Lt Headedness, No Other Respiratory: No Cough, No Dry; Shortness of breath; No SOB with excertion, No Wheezing, No Hemoptysis, No Pleuritic Pain, No Sputum, No Other Gastrointestinal: No Nausea, No Vomiting, No Abdominal Pain, No Diarrhea, No Constipation, No Melena, No Hematochezia, No Other Genitourinary: No Dysuria, No Frequency, No Incontinence, No Hematuria, No Retention, No Other Musculoskeletal: No other, No neck pain, No shoulder pain, No arm pain, No back pain, No hand pain, No leg pain, No foot pain Skin: No Rash, No Lesions, No Jaundice, No Bruising, No Other Objective Vitals Vital Signs Date Time Temp Pulse Resp B/P (MAP) Pulse Ox O2 Delivery O2 Flow Rate FiO2 02/14/25 20:00 Oxymizer 5 N/A 02/14/25 16:30 98.7 99 18 115/83 (94) 93 98.7 Intake/Output Intake and Output 02/14/25 07:00 Intake Total 1350 ml Balance 1350 ml Intake Oral 1050 ml IV Total 300 ml # Voids 7 # Bowel Movements 2 Medications Current Medications Medications Dose Ordered Sig/Nicolas Route Start Time Stop Time Status Last Admin Dose Admin Acetaminophen/ Hydrocodone Bitart 1 tab Q4HP PRN PO 02/10/25 17:00 Ondansetron HCl 4 mg Q4HP PRN IV 02/10/25 17:00 02/14/25 15:17 4 MG Docusate Sodium 100 mg BIDPRN PRN PO 02/10/25 17:00 02/11/25 22:24 100 MG Acetaminophen 650 mg Q6HP PRN PO 02/10/25 17:00 Ipratropium [place] 0.5 mg Q4HPRN PRN NEB 02/10/25 17:30 02/13/25 17:57 0.5 MG Albuterol 2.5 mg Q4HPRN PRN NEB 02/10/25 17:30 02/13/25 17:57 2.5 MG Apixaban 5 mg BID PO 02/10/25 22:00 02/14/25 21:13 5 MG Furosemide 40 mg QAM PO 02/11/25 07:00 02/14/25 06:09 40 MG Zolpidem Tartrate 10 mg HS PO 02/10/25 22:00 02/14/25 21:13 10 MG Calcium Carbonate 500 mg QIDPRN PRN PO 02/11/25 12:00 02/13/25 11:04 500 MG Ceftriaxone Sodium 50 ml @ 100 mls/hr DAILY@09 IV 02/14/25 09:00 02/14/25 09:57 100 MLS/HR Vancomycin HCl 0 ml @ 0 mls/hr PER PHARMACY IV 02/13/25 18:30 Vancomycin HCl 250 ml @ 250 mls/hr Q12H IV 02/14/25 16:00 02/14/25 16:25 250 MLS/HR Laboratory Results Laboratory Tests 02/14/25 09:30 Chemistry Test 02/14/25 09:30 Albumin 3.2 g/dL (3.2-4.8) Calcium Level 8.3 mg/dL (8.7-10.4) L Total Protein 5.2 g/dL (5.7-8.2) L LFT Test 02/14/25 09:30 Alanine Aminotransferase (ALT) 136 U/L (7-40) H Alkaline Phosphatase 230 U/L (46-116) H Aspartate Amino Transferase (AST) 74 U/L (13-40) H Total Bilirubin 1.0 mg/dL (0.2-1.0) Urinalysis Test 02/10/25 12:35 Urine Color Yellow (Yellow) Urine Clarity Clear (Clear) Urine pH 5.5 (5.0-9.0) Urine Specific [place] 1.021 (1.001-1.035) Urine Protein Trace (Negative) H Urine Ketones Trace (Negative) Urine Blood Negative /uL (Negative) Urine Nitrite Negative (Negative) Urine Bilirubin Negative (Negative) Urine Urobilinogen 2 mg/dL (Negative) H Urine Leukocyte Esterase Negative /uL (Negative) Urine RBC 1 /hpf (0 - 4) Urine Microscopic WBC 5 /HPF (0-5) Urine Squamous Epithelial Cells Few /hpf (<5) Urine Bacteria Few /hpf (None Seen) H Urine Hyaline Casts Many /lpf (0 - 2) Urine Mucus Few (None Seen) Urine Glucose Normal mg/dL (Normal) Microbiology Microbiology Date/Time Source Procedure Growth Status 02/13/25 19:00 Blood Blood Culture - Preliminary NO GROWTH AFTER 24 HOURS OF INCUBATION. Resulted Assessment/Plan Assessment/Plan Jessica Roman is a 74-year-old female with past medical history of atrial fibrillation, COPD, and neurofibromatosis, who was brought to the hospital by EMS for generalized weakness. Patient lives with her , he is at the bedside. The patient is drowsy and falling asleep during the assessment. states she has been tired and lethargic for about 2 weeks. She started having frequent falls a couple days ago as well. Yesterday she fell and he had to call EMS to help get her up. When they were there they noted that her blood pressure was low, but she refused to come to the hospital. Patient fell again this morning, and her had to call EMS again to help him. Her blood pressure was low and she was brought to the hospital. also states that her oxygenation has been low at home and he has increased her from 3L N/C to 4-5L N/C, and that she has had a poor appetite the last couple of weeks. acute Metabolic encephalopathy, Hypoxemia, Possible lung mass, Transaminitis, Dehydration, Malnutrition, Atrial fibrillation, COPD, Neurofibromatosis sepsis with unclear source, suspected pna 02/11/25: pt is still altered, discussed with at bedside 02/12/2025: pt is agitated and still very short of breath Plan discussed with: Patient My Orders Orders - EVETTE MCGRAW DO Procedure Category Date Status Time * Cardiology Consult CONS 02/14/25 Transmitted 09:39 Ct Ab Pel Wo Con-No CT 02/14/25 Logged Oral Or Iv 17:16 Date of Service: Feb 12, 2025 Billing Provider: EVETTE MCGRAW DO Common Visit Codes: [id number] INP/OBS CARE(HIGH) EVETTE MCGRAW DO Feb 14, 2025 23:24
--- NOTE | 2025-02-14 23:27 | DVHPN2 ---
Reviewed: Care Plan, H&P, Labs, Medications, Previous Orders, Radiology Changes from previous H/P or p: No Changes General: Per HPI Eyes: No Pain, No Vision change, No Conjunctivae inflammation, No Eyelid inflammation, No Other, No Redness ENT: No Ear pain, No Ear discharge, No Nose pain, No Nose discharge, No Nose congestion, No Mouth pain, No Mouth swelling, No Throat pain, No Throat swelling, No Other Cardiovascular: No Chest Pain, No Palpitations, No Orthopnea, No Paroxysmal Noc. Dyspnea, No Edema, No Lt Headedness, No Other Respiratory: No Cough, No Dry; Shortness of breath; No SOB with excertion, No Wheezing, No Hemoptysis, No Pleuritic Pain, No Sputum, No Other Gastrointestinal: No Nausea, No Vomiting, No Abdominal Pain, No Diarrhea, No Constipation, No Melena, No Hematochezia, No Other Genitourinary: No Dysuria, No Frequency, No Incontinence, No Hematuria, No Retention, No Other Musculoskeletal: No other, No neck pain, No shoulder pain, No arm pain, No back pain, No hand pain, No leg pain, No foot pain Skin: No Rash, No Lesions, No Jaundice, No Bruising, No Other Objective Vitals Vital Signs Date Time Temp Pulse Resp B/P (MAP) Pulse Ox O2 Delivery O2 Flow Rate FiO2 02/14/25 20:00 Oxymizer 5 N/A 02/14/25 16:30 98.7 99 18 115/83 (94) 93 98.7 Intake/Output Intake and Output 02/14/25 07:00 Intake Total 1350 ml Balance 1350 ml Intake Oral 1050 ml IV Total 300 ml # Voids 7 # Bowel Movements 2 Medications Current Medications Medications Dose Ordered Sig/Nicolas Route Start Time Stop Time Status Last Admin Dose Admin Acetaminophen/ Hydrocodone Bitart 1 tab Q4HP PRN PO 02/10/25 17:00 Ondansetron HCl 4 mg Q4HP PRN IV 02/10/25 17:00 02/14/25 15:17 4 MG Docusate Sodium 100 mg BIDPRN PRN PO 02/10/25 17:00 02/11/25 22:24 100 MG Acetaminophen 650 mg Q6HP PRN PO 02/10/25 17:00 Ipratropium [place] 0.5 mg Q4HPRN PRN NEB 02/10/25 17:30 02/13/25 17:57 0.5 MG Albuterol 2.5 mg Q4HPRN PRN NEB 02/10/25 17:30 02/13/25 17:57 2.5 MG Apixaban 5 mg BID PO 02/10/25 22:00 02/14/25 21:13 5 MG Furosemide 40 mg QAM PO 02/11/25 07:00 02/14/25 06:09 40 MG Zolpidem Tartrate 10 mg HS PO 02/10/25 22:00 02/14/25 21:13 10 MG Calcium Carbonate 500 mg QIDPRN PRN PO 02/11/25 12:00 02/13/25 11:04 500 MG Ceftriaxone Sodium 50 ml @ 100 mls/hr DAILY@09 IV 02/14/25 09:00 02/14/25 09:57 100 MLS/HR Vancomycin HCl 0 ml @ 0 mls/hr PER PHARMACY IV 02/13/25 18:30 Vancomycin HCl 250 ml @ 250 mls/hr Q12H IV 02/14/25 16:00 02/14/25 16:25 250 MLS/HR Laboratory Results Laboratory Tests 02/14/25 09:30 Chemistry Test 02/14/25 09:30 Albumin 3.2 g/dL (3.2-4.8) Calcium Level 8.3 mg/dL (8.7-10.4) L Total Protein 5.2 g/dL (5.7-8.2) L LFT Test 02/14/25 09:30 Alanine Aminotransferase (ALT) 136 U/L (7-40) H Alkaline Phosphatase 230 U/L (46-116) H Aspartate Amino Transferase (AST) 74 U/L (13-40) H Total Bilirubin 1.0 mg/dL (0.2-1.0) Urinalysis Test 02/10/25 12:35 Urine Color Yellow (Yellow) Urine Clarity Clear (Clear) Urine pH 5.5 (5.0-9.0) Urine Specific [place] 1.021 (1.001-1.035) Urine Protein Trace (Negative) H Urine Ketones Trace (Negative) Urine Blood Negative /uL (Negative) Urine Nitrite Negative (Negative) Urine Bilirubin Negative (Negative) Urine Urobilinogen 2 mg/dL (Negative) H Urine Leukocyte Esterase Negative /uL (Negative) Urine RBC 1 /hpf (0 - 4) Urine Microscopic WBC 5 /HPF (0-5) Urine Squamous Epithelial Cells Few /hpf (<5) Urine Bacteria Few /hpf (None Seen) H Urine Hyaline Casts Many /lpf (0 - 2) Urine Mucus Few (None Seen) Urine Glucose Normal mg/dL (Normal) Microbiology Microbiology Date/Time Source Procedure Growth Status 02/13/25 19:00 Blood Blood Culture - Preliminary NO GROWTH AFTER 24 HOURS OF INCUBATION. Resulted Assessment/Plan Assessment/Plan Jessica Roman is a 74-year-old female with past medical history of atrial fibrillation, COPD, and neurofibromatosis, who was brought to the hospital by EMS for generalized weakness. Patient lives with her , he is at the bedside. The patient is drowsy and falling asleep during the assessment. states she has been tired and lethargic for about 2 weeks. She started having frequent falls a couple days ago as well. Yesterday she fell and he had to call EMS to help get her up. When they were there they noted that her blood pressure was low, but she refused to come to the hospital. Patient fell again this morning, and her had to call EMS again to help him. Her blood pressure was low and she was brought to the hospital. also states that her oxygenation has been low at home and he has increased her from 3L N/C to 4-5L N/C, and that she has had a poor appetite the last couple of weeks. acute Metabolic encephalopathy, Hypoxemia, Possible lung mass, Transaminitis, Dehydration, Malnutrition, Atrial fibrillation, COPD, Neurofibromatosis sepsis with unclear source, suspected pna 02/11/25: pt is still altered, discussed with at bedside 02/12/2025: pt is agitated and still very short of breath 02/13/2025: pt remains encephalopathy, pt has been started on iv abx 02/14/2025: obtaining CT abd due to WBC remaining elevated, started on ceftriaxone Plan discussed with: Spouse My Orders Orders - EVETTE MCGRAW DO Procedure Category Date Status Time * Cardiology Consult CONS 02/14/25 Transmitted 09:39 Ct Ab Pel Wo Con-No CT 02/14/25 Logged Oral Or Iv 17:16 Date of Service: Feb 14, 2025 Billing Provider: EVETTE MCGRAW DO Common Visit Codes: [id number] INP/OBS CARE(HIGH) EVETTE MCGRAW DO Feb 14, 2025 23:27
[2025-02-15] VITALS (8 sets, daily range): BP systolic 94–127; BP diastolic 61–88; PULSE 87–107; RESP 17–21; TEMP 97.3–98.1; O2SAT 92–97
[2025-02-15 06:48] LABS: Hemoglobin 10.2 g/dL (12.2-16.2)
[2025-02-15 06:50] LABS: Hematocrit 34.3 % (36.0-46.0); Mean Corpuscular Hemoglobin 19.8 pg (28.0-32.0); Mean Corpuscular Volume 66.2 fL (80.0-100.0); Nucleated Red Blood Cells % 0.3 %
--- NOTE | 2025-02-15 09:22 | DVH ---
Exam: CT CT AB PEL WO CON-NO ORAL OR IV History: sepsis Comparison Study: None Technique: Multidetector spiral CT of the abdomen was performed from lung bases to pubic symphysis. Imaging was performed without IV contrast. Axial, coronal and sagittal multiplanar reformats were obtained from the axial data set by the technologist. Radiation Dose : 1. Abdomen/Pelvis: CTDIvol 16.91 mGy, DLP 941.08 mGy*cm. Findings: Evaluation of solid organs is limited due to lack of intravenous contrast use. Lung Bases: Multichamber cardiac enlargement. Small bilateral pleural effusions. Patchy airspace disease throughout the right lower lobe. More dependent atelectatic changes throughout the left lower lobe. Liver: The liver is normal in size. No focal lesions. Gallbladder and Biliary Tree: Cholelithiasis noted without secondary findings of cholecystitis or biliary obstruction. Spleen: Unremarkable Pancreas: The pancreas is grossly normal in appearance. Adrenal Glands: Unremarkable Kidneys: Kidneys are grossly normal without calculi or hydronephrosis. Bladder: Grossly unremarkable for degree of distention. Bowel: Mild circumferential thickening of the descending colon. Colon is poorly distended here however. Otherwise no evidence for a colitis, diverticulitis, or obstruction. Ascites: Absent Lymphadenopathy: No mesenteric, retroperitoneal or periportal lymphadenopathy. Abdominal Wall and Mesentery: Generalized soft tissue edema. Vasculature: The visualized abdominal aorta is normal in size and caliber. Evaluation of abdominal and pelvic vessels is limited due to lack of intravenous contrast. Pelvic Organs: Unremarkable Musculoskeletal: No aggressive focal bony lesions, acute fractures or dislocation. IMPRESSION: Mild circumferential thickening of the descending colon which could be artifactual. Please correlate with any symptoms of a mild colitis. Otherwise no clear source for sepsis in the abdomen or pelvis. Small right-sided pleural effusion with patchy airspace disease throughout the right lower lobe. Radiation optimization: All CT scans at this facility use at least one of these dose optimization techniques: automated exposure control mA and/or kV adjustment per patient size (includes targeted exams where dose is matched to clinical indication) or iterative reconstruction.
[2025-02-16] VITALS (10 sets, daily range): BP systolic 105–109; BP diastolic 63–69; PULSE 85–95; RESP 16–18; TEMP 97.3–97.7; O2SAT 88–95
[2025-02-16] MEDS: VANCOMYCIN 1.25GM/250ML 250 ML IV SCH (03:53)
[2025-02-16 07:17] LABS: Hemoglobin 11.3 g/dL (12.2-16.2)
--- NOTE | 2025-02-16 07:21 | ECG ---
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
[2025-02-16 07:23] LABS: Hematocrit 37.2 % (36.0-46.0); Mean Corpuscular Hemoglobin 20.1 pg (28.0-32.0); Mean Corpuscular Volume 66.3 fL (80.0-100.0); Nucleated Red Blood Cells % 0.4 %
[2025-02-16] MEDS: ALPRAZolam 0.5 MG TAB PO PRN (22:56)
--- NOTE | 2025-02-16 23:30 | DVHPN2 ---
Reviewed: Care Plan, H&P, Labs, Medications, Previous Orders, Radiology Changes from previous H/P or p: No Changes General: Per HPI Eyes: No Pain, No Vision change, No Conjunctivae inflammation, No Eyelid inflammation, No Other, No Redness ENT: No Ear pain, No Ear discharge, No Nose pain, No Nose discharge, No Nose congestion, No Mouth pain, No Mouth swelling, No Throat pain, No Throat swelling, No Other Cardiovascular: No Chest Pain, No Palpitations, No Orthopnea, No Paroxysmal Noc. Dyspnea, No Edema, No Lt Headedness, No Other Respiratory: No Cough, No Dry; Shortness of breath; No SOB with excertion, No Wheezing, No Hemoptysis, No Pleuritic Pain, No Sputum, No Other Gastrointestinal: No Nausea, No Vomiting, No Abdominal Pain, No Diarrhea, No Constipation, No Melena, No Hematochezia, No Other Genitourinary: No Dysuria, No Frequency, No Incontinence, No Hematuria, No Retention, No Other Musculoskeletal: No other, No neck pain, No shoulder pain, No arm pain, No back pain, No hand pain, No leg pain, No foot pain Skin: No Rash, No Lesions, No Jaundice, No Bruising, No Other Objective Vitals Vital Signs Date Time Temp Pulse Resp B/P (MAP) Pulse Ox O2 Delivery O2 Flow Rate FiO2 02/16/25 17:58 95 Oxymizer 10.0 02/16/25 17:58 72 72 02/16/25 16:10 93 18 109/63 02/16/25 05:00 97.6 97.6 Intake/Output Intake and Output 02/16/25 06:59 Intake Total 1500 ml Balance 1500 ml Intake Oral 950 ml IV Total 550 ml # Voids 5 Medications Current Medications Medications Dose Ordered Sig/Nicolas Route Start Time Stop Time Status Last Admin Dose Admin Acetaminophen/ Hydrocodone Bitart 1 tab Q4HP PRN PO 02/10/25 17:00 Ondansetron HCl 4 mg Q4HP PRN IV 02/10/25 17:00 02/15/25 23:48 4 MG Docusate Sodium 100 mg BIDPRN PRN PO 02/10/25 17:00 02/11/25 22:24 100 MG Acetaminophen 650 mg Q6HP PRN PO 02/10/25 17:00 Ipratropium [place] 0.5 mg Q4HPRN PRN NEB 02/10/25 17:30 02/16/25 06:12 0.5 MG Albuterol 2.5 mg Q4HPRN PRN NEB 02/10/25 17:30 02/16/25 06:12 2.5 MG Apixaban 5 mg BID PO 02/10/25 22:00 02/16/25 21:36 5 MG Furosemide 40 mg QAM PO 02/11/25 07:00 02/16/25 06:07 40 MG Zolpidem Tartrate 10 mg HS PO 02/10/25 22:00 02/16/25 21:36 10 MG Calcium Carbonate 500 mg QIDPRN PRN PO 02/11/25 12:00 02/13/25 11:04 500 MG Ceftriaxone Sodium 50 ml @ 100 mls/hr DAILY@09 IV 02/14/25 09:00 02/16/25 09:42 100 MLS/HR Vancomycin HCl 0 ml @ 0 mls/hr PER PHARMACY IV 02/13/25 18:30 Vancomycin HCl 250 ml @ 250 mls/hr Q12H IV 02/16/25 04:00 02/16/25 17:19 250 MLS/HR Alprazolam 0.5 mg [id number] PRN PO 02/16/25 17:45 02/16/25 22:56 0.5 MG Laboratory Results Laboratory Tests 02/14/25 09:30 02/16/25 05:40 Urinalysis Test 02/10/25 12:35 Urine Color Yellow (Yellow) Urine Clarity Clear (Clear) Urine pH 5.5 (5.0-9.0) Urine Specific [place] 1.021 (1.001-1.035) Urine Protein Trace (Negative) H Urine Ketones Trace (Negative) Urine Blood Negative /uL (Negative) Urine Nitrite Negative (Negative) Urine Bilirubin Negative (Negative) Urine Urobilinogen 2 mg/dL (Negative) H Urine Leukocyte Esterase Negative /uL (Negative) Urine RBC 1 /hpf (0 - 4) Urine Microscopic WBC 5 /HPF (0-5) Urine Squamous Epithelial Cells Few /hpf (<5) Urine Bacteria Few /hpf (None Seen) H Urine Hyaline Casts Many /lpf (0 - 2) Urine Mucus Few (None Seen) Urine Glucose Normal mg/dL (Normal) Microbiology Microbiology Date/Time Source Procedure Growth Status 02/13/25 19:00 Blood Blood Culture - Preliminary NO GROWTH AFTER 72 HOURS OF INCUBATION. Resulted Assessment/Plan Assessment/Plan Jessica Roman is a 74-year-old female with past medical history of atrial fibrillation, COPD, and neurofibromatosis, who was brought to the hospital by EMS for generalized weakness. Patient lives with her , he is at the bedside. The patient is drowsy and falling asleep during the assessment. states she has been tired and lethargic for about 2 weeks. She started having frequent falls a couple days ago as well. Yesterday she fell and he had to call EMS to help get her up. When they were there they noted that her blood pressure was low, but she refused to come to the hospital. Patient fell again this morning, and her had to call EMS again to help him. Her blood pressure was low and she was brought to the hospital. also states that her oxygenation has been low at home and he has increased her from 3L N/C to 4-5L N/C, and that she has had a poor appetite the last couple of weeks. acute Metabolic encephalopathy, Hypoxemia, Possible lung mass, Transaminitis, Dehydration, Malnutrition, Atrial fibrillation, COPD, Neurofibromatosis sepsis with unclear source, suspected pna bacterial pna colitis 02/11/25: pt is still altered, discussed with at bedside 02/12/2025: pt is agitated and still very short of breath 02/13/2025: pt remains encephalopathy, pt has been started on iv abx 02/14/2025: obtaining CT abd due to WBC remaining elevated, started on ceftriaxone 02/15/2025: CT indicates pna and colitis. CT indicates: Mild circumferential thickening of the descending colon which could be artifactual. Please correlate with any symptoms of a mild colitis. Otherwise no clear source for sepsis in the abdomen or pelvis. Small right-sided pleural effusion with patchy airspace disease throughout the right lower lobe. Plan discussed with: Patient, Spouse My Orders Orders - EVETTE MCGRAW DO Procedure Category Date Status Time Discharge DISCHARGE 02/16/25 Transmitted 15:20 Alprazolam Tablet PHA 02/16/25 In Process (Xanax Tablet) 17:45 *Consult CONS 02/16/25 Transmitted 23:26 Date of Service: Feb 15, 2025 Billing Provider: EVETTE MCGRAW DO Common Visit Codes: [id number] INP/OBS CARE(HIGH) EVETTE MCGRAW DO Feb 16, 2025 23:30
--- NOTE | 2025-02-16 23:36 | DVHPN2 ---
Reviewed: Care Plan, H&P, Labs, Medications, Previous Orders, Radiology Changes from previous H/P or p: No Changes General: Per HPI Eyes: No Pain, No Vision change, No Conjunctivae inflammation, No Eyelid inflammation, No Other, No Redness ENT: No Ear pain, No Ear discharge, No Nose pain, No Nose discharge, No Nose congestion, No Mouth pain, No Mouth swelling, No Throat pain, No Throat swelling, No Other Cardiovascular: No Chest Pain, No Palpitations, No Orthopnea, No Paroxysmal Noc. Dyspnea, No Edema, No Lt Headedness, No Other Respiratory: No Cough, No Dry; Shortness of breath; No SOB with excertion, No Wheezing, No Hemoptysis, No Pleuritic Pain, No Sputum, No Other Gastrointestinal: No Nausea, No Vomiting, No Abdominal Pain, No Diarrhea, No Constipation, No Melena, No Hematochezia, No Other Genitourinary: No Dysuria, No Frequency, No Incontinence, No Hematuria, No Retention, No Other Musculoskeletal: No other, No neck pain, No shoulder pain, No arm pain, No back pain, No hand pain, No leg pain, No foot pain Skin: No Rash, No Lesions, No Jaundice, No Bruising, No Other Objective Vitals Vital Signs Date Time Temp Pulse Resp B/P (MAP) Pulse Ox O2 Delivery O2 Flow Rate FiO2 02/16/25 17:58 95 Oxymizer 10.0 02/16/25 17:58 72 72 02/16/25 16:10 93 18 109/63 02/16/25 05:00 97.6 97.6 Intake/Output Intake and Output 02/16/25 06:59 Intake Total 1500 ml Balance 1500 ml Intake Oral 950 ml IV Total 550 ml # Voids 5 Medications Current Medications Medications Dose Ordered Sig/Nicolas Route Start Time Stop Time Status Last Admin Dose Admin Acetaminophen/ Hydrocodone Bitart 1 tab Q4HP PRN PO 02/10/25 17:00 Ondansetron HCl 4 mg Q4HP PRN IV 02/10/25 17:00 02/15/25 23:48 4 MG Docusate Sodium 100 mg BIDPRN PRN PO 02/10/25 17:00 02/11/25 22:24 100 MG Acetaminophen 650 mg Q6HP PRN PO 02/10/25 17:00 Ipratropium [place] 0.5 mg Q4HPRN PRN NEB 02/10/25 17:30 02/16/25 06:12 0.5 MG Albuterol 2.5 mg Q4HPRN PRN NEB 02/10/25 17:30 02/16/25 06:12 2.5 MG Apixaban 5 mg BID PO 02/10/25 22:00 02/16/25 21:36 5 MG Furosemide 40 mg QAM PO 02/11/25 07:00 02/16/25 06:07 40 MG Zolpidem Tartrate 10 mg HS PO 02/10/25 22:00 02/16/25 21:36 10 MG Calcium Carbonate 500 mg QIDPRN PRN PO 02/11/25 12:00 02/13/25 11:04 500 MG Ceftriaxone Sodium 50 ml @ 100 mls/hr DAILY@09 IV 02/14/25 09:00 02/16/25 09:42 100 MLS/HR Vancomycin HCl 0 ml @ 0 mls/hr PER PHARMACY IV 02/13/25 18:30 Vancomycin HCl 250 ml @ 250 mls/hr Q12H IV 02/16/25 04:00 02/16/25 17:19 250 MLS/HR Alprazolam 0.5 mg [id number] PRN PO 02/16/25 17:45 02/16/25 22:56 0.5 MG Laboratory Results Laboratory Tests 02/14/25 09:30 02/16/25 05:40 Urinalysis Test 02/10/25 12:35 Urine Color Yellow (Yellow) Urine Clarity Clear (Clear) Urine pH 5.5 (5.0-9.0) Urine Specific [place] 1.021 (1.001-1.035) Urine Protein Trace (Negative) H Urine Ketones Trace (Negative) Urine Blood Negative /uL (Negative) Urine Nitrite Negative (Negative) Urine Bilirubin Negative (Negative) Urine Urobilinogen 2 mg/dL (Negative) H Urine Leukocyte Esterase Negative /uL (Negative) Urine RBC 1 /hpf (0 - 4) Urine Microscopic WBC 5 /HPF (0-5) Urine Squamous Epithelial Cells Few /hpf (<5) Urine Bacteria Few /hpf (None Seen) H Urine Hyaline Casts Many /lpf (0 - 2) Urine Mucus Few (None Seen) Urine Glucose Normal mg/dL (Normal) Microbiology Microbiology Date/Time Source Procedure Growth Status 02/13/25 19:00 Blood Blood Culture - Preliminary NO GROWTH AFTER 72 HOURS OF INCUBATION. Resulted Assessment/Plan Assessment/Plan Jessica Roman is a 74-year-old female with past medical history of atrial fibrillation, COPD, and neurofibromatosis, who was brought to the hospital by EMS for generalized weakness. Patient lives with her , he is at the bedside. The patient is drowsy and falling asleep during the assessment. states she has been tired and lethargic for about 2 weeks. She started having frequent falls a couple days ago as well. Yesterday she fell and he had to call EMS to help get her up. When they were there they noted that her blood pressure was low, but she refused to come to the hospital. Patient fell again this morning, and her had to call EMS again to help him. Her blood pressure was low and she was brought to the hospital. also states that her oxygenation has been low at home and he has increased her from 3L N/C to 4-5L N/C, and that she has had a poor appetite the last couple of weeks. acute Metabolic encephalopathy, Hypoxemia, Possible lung mass, Transaminitis, Dehydration, Malnutrition, Atrial fibrillation, COPD, Neurofibromatosis sepsis with unclear source, suspected pna bacterial pna colitis 02/11/25: pt is still altered, discussed with at bedside 02/12/2025: pt is agitated and still very short of breath 02/13/2025: pt remains encephalopathy, pt has been started on iv abx 02/14/2025: obtaining CT abd due to WBC remaining elevated, started on ceftriaxone 02/15/2025: CT indicates pna and colitis. CT indicates: Mild circumferential thickening of the descending colon which could be artifactual. Please correlate with any symptoms of a mild colitis. Otherwise no clear source for sepsis in the abdomen or pelvis. Small right-sided pleural effusion with patchy airspace disease throughout the right lower lobe. 02/16/2025: CT indicates pna and colitis. pt is still on Oxymizer with high volume of O2 pt wants to go home. discussed with at bedside. He keeps asking the same questions not able to discharge due to pt is still on high supplemental O2 Plan discussed with: Patient, Spouse My Orders Orders - EVETTE MCGRAW DO Procedure Category Date Status Time Discharge DISCHARGE 02/16/25 Transmitted 15:20 Alprazolam Tablet PHA 02/16/25 In Process (Xanax Tablet) 17:45 *Consult Dr.Gregoriyan WILKINSON 02/16/25 Transmitted 23:26 Date of Service: Feb 16, 2025 Billing Provider: EVETTE MCGRAW DO Common Visit Codes: [id number] INP/OBS CARE(HIGH) EVETTE MCGRAW DO Feb 16, 2025 23:36
[2025-02-17] VITALS (11 sets, daily range): BP systolic 15–114; BP diastolic 62–74; PULSE 80–98; RESP 17–20; TEMP 97.3–98; O2SAT 89–93
[2025-02-17 06:03] LABS: Hematocrit 36.5 % (36.0-46.0); Hemoglobin 10.9 g/dL (12.2-16.2); Mean Corpuscular Hemoglobin 19.7 pg (28.0-32.0); Mean Corpuscular Volume 66.1 fL (80.0-100.0); Nucleated Red Blood Cells % 0.2 %
--- NOTE | 2025-02-17 09:19 | DVHINCON2 ---
Date of service: Feb 10, [address] Mcgraw Reason for Consultation COPD management History of Present Illness HPI The patient is a 74-year-old lady with history of COPD on home oxygen, cardiomyopathy atrial fibrillation and cor pulmonale. She presented with generalized weakness and shortness of breath. Chest x-ray on admission questionable pneumothorax. CT of the chest was obtained and shows prominent pulmonary vessels / signs of pulmonary hypertension pulmonary congestion versus infiltrate/pneumonia Home Meds Active Scripts Cephalexin (KEFLEX CAPSULE) 250 Mg Cp, 2 CAP PO BID for 5 Days, #20 CAP Prov:MCGRAWEVETTE DO 02/14/25 Reported Medications Apixaban Base (ELIQUIS) 5 Mg Tab, 1 TAB PO BID 02/10/25 Furosemide (Furosemide) 40 Mg Tab, 1 TAB PO QAM 02/10/25 Zolpidem Tartrate (Zolpidem Tartrate) 10 Mg Tab, 1 TAB PO HS 02/10/25 Past Medical History Cardiac: AFIB, HTN Pulmonary: COPD Central Nervous System: No pertinent Hx GI: No pertinent Hx Hemotology/Oncology: No pertinent Hx Hepatobiliary: No pertinent Hx Psychiatric: No pertinent Hx Musculoskeletal: No pertinent Hx Rheumotologic: No pertinent Hx Infectious Disease: No peritnent Hx ENT: No pertinent Hx Renal/: No pertinent Hx Endocrine: No pertinent Hx Dermatology: No pertinent Hx Past Surgical History: No pertinent Hx Family History: No pertinent Hx Review of Systems Constitutional: Malaise, Weakness Ears, Nose, & Throat: No symptom reported Eyes: No symptom reported Pulmonary/Respiratory: Dyspnea, Cough Cardiovascular: No symptom reported Gastrointestinal: No symptom reported Genitourinary: No symptom reported Musculoskeletal: No symptom reported Skin: No symptom reported Endocrine: No symptom reported Hemotologic/Lymphatic: No symptom reported H&P Exam Vital Signs Vital Signs Date Time Temp Pulse Resp B/P (MAP) Pulse Ox O2 Delivery O2 Flow Rate FiO2 02/17/25 05:00 97.3 87 17 110/74 (86) 93 97.3 02/16/25 20:00 Oxymizer 9 N/A General Appeara: Well developed, Well nourished, Normal Appearance Head Exam: Normal inspection Neck Exam: Normal inspection, Non-tender, Normal alignment Eye Exam: bilateral eye Normal inspection, bilateral eye PERRL Ear Exam: bilateral ear Auricle normal, bilateral ear Canal normal Nasal Exam: Normal inspection Mouth: Normal Inspection Pulmonary/Respiratory: Normal inspection Cardiovascular/Chest: Normal inspection Peripheral Pulses: 4+ carotid (R), 4+ carotid (L) Labs/Xrays Labs Test 02/17/25 05:33 02/15/25 15:31 02/14/25 09:30 02/13/25 15:52 Range/Units White Blood Count 12.6 H 4.4-10.8 10^3/uL Red Blood Count 5.52 H 4.0-5.20 10^6/uL Hemoglobin 10.9 L 12.2-16.2 g/dL Hematocrit 36.5 36.0-46.0 % Mean Corpuscular Volume 66.1 L 80.0-100.0 fL Mean Corpuscular Hemoglobin 19.7 L 28.0-32.0 pg Mean Corpuscular Hemoglobin Concent 29.8 L 32.0-36.0 g/dL Red Cell Distribution Width 22.3 H 11.8-14.3 % Platelet Count 148 140-450 10^3/uL Mean Platelet Volume 8.8 6.9-10.8 fL Neutrophils (%) (Auto) 83.9 H 37.0-80.0 % Lymphocytes (%) (Auto) 4.2 L 10.0-50.0 % Monocytes (%) (Auto) 9.4 0.0-12.0 % Eosinophils (%) (Auto) 2.2 0.0-7.0 % Basophils (%) (Auto) 0.3 0.0-2.0 % Neutrophils # (Auto) 10.5 H 1.6-8.6 10 ^3/uL Lymphocytes # (Auto) 0.5 0.4-5.4 10 ^3/uL Monocytes # (Auto) 1.2 0-1.3 10 ^3/uL Eosinophils # (Auto) 0.3 0-0.8 10 ^3/uL Basophils # (Auto) 0 0-0.2 10 ^3/uL Nucleated Red Blood Cells 0.2 % Creatinine 0.76 0.550-1.02 mg/dL Glomerular Filtration Rate Calc 82 >90 mL/min Vancomycin Level Trough 12.6 H 5-10 ug/mL Sodium Level 143 136-145 mmol/L Potassium Level 3.4 L 3.5-5.1 mmol/L Chloride Level 99 98-107 mmol/L Carbon Dioxide Level 32 H 20-31 mmol/L Anion Gap 12 5-15 Blood Urea Nitrogen 14 9-23 mg/dL BUN/Creatinine Ratio 21.2 H 10.0-20.0 Serum Glucose 94 74-106 mg/dL Calcium Level 8.3 L 8.7-10.4 mg/dL Total Bilirubin 1.0 0.2-1.0 mg/dL Aspartate Amino Transferase (AST) 74 H 13-40 U/L Alanine Aminotransferase (ALT) 136 H 7-40 U/L Alkaline Phosphatase 230 H 46-116 U/L Total Protein 5.2 L 5.7-8.2 g/dL Albumin 3.2 3.2-4.8 g/dL Random Vancomycin Level < 3.0 L 5-10 ug/mL Platelet Estimate [place] Large Platelets Few Polychromasia Slight Hypochromasia (manual) Moderate Anisocytosis (manual) Slight Microcytosis Moderate Ovalocytes Few Stomatocytes Few Test 02/11/25 05:28 02/10/25 12:39 02/10/25 12:35 Range/Units Ryann Cells Few Lactic Acid Level 1.8 0.4-2.0 mmol/L Urine Color Yellow Yellow Urine Clarity Clear Clear Urine pH 5.5 5.0-9.0 Urine Specific [place] 1.021 1.001-1.035 Urine Protein Trace H Negative Urine Ketones Trace Negative Urine Blood Negative Negative /uL Urine Nitrite Negative Negative Urine Bilirubin Negative Negative Urine Urobilinogen 2 H Negative mg/dL Urine Leukocyte Esterase Negative Negative /uL Urine RBC 1 0 - 4 /hpf Urine Microscopic WBC 5 0-5 /HPF Urine Squamous Epithelial Cells Few <5 /hpf Urine Bacteria Few H None Seen /hpf Urine Hyaline Casts Many 0 - 2 /lpf Urine Mucus Few None Seen Urine Glucose Normal Normal mg/dL Urine Opiates Screen Neg NEGATIVE Urine Fentanyl Screen Neg NEGATIVE Urine Barbiturates Screen Neg NEGATIVE Urine Phencyclidine Screen Neg NEGATIVE Urine Amphetamines Screen Neg NEGATIVE Urine Benzodiazepines Screen Pos NEGATIVE Urine Cocaine Screen Neg NEGATIVE Urine Cannabinoids Screen Pos NEGATIVE Microbiology Date/Time Source Procedure Growth Status 02/13/25 19:00 Blood Blood Culture - Preliminary NO GROWTH AFTER 72 HOURS OF INCUBATION. Resulted Assessment/Plan Plan Hypoxemic respiratory failure acute on chronic Pneumonia Pulmonary congestion COPD Cor pulmonale/pulmonary hypertension Chronic dependency on oxygen Management plan CT chest reviewed Significant cardiomegaly, especially the right atrium and right ventricle. Pulmonary arterial enlargement, suggestive of pulmonary arterial hypertension. Trace bilateral pleural effusions, neocv-xoivnio-lvom-left. Bilateral lower lobe subsegmental dependent atelectasis, [id number]-[id number]-wcuh-left. No pneumothorax. Enlarged, heterogeneous multinodular thyroid. Nonemergent thyroid ultrasound is recommended. Supplemental O2 as needed Maintain O2 sats above 90% Albuterol Atrovent bronchodilators Rocephin for possible pneumonia Diurese with Lasix Monitor renal function Replace electrolytes keep potassium above 4 Supportive care Nutrition GI and DVT prophylaxis Otherwise management per primary team Plan discussed with: Patient CARMELITA GARLAND MD Feb 17, 2025 09:19
--- NOTE | 2025-02-17 09:20 | DVHPN2 ---
Progress Note - Dictate Date Seen: Feb 15, 2025 Has the PT tested + for MRSA If YES, has PT been informed?: No Medical Necessity Reason Pt with a Central, PICC or Fol: No vital signs Vital Sign Date Time Temp Pulse Resp B/P (MAP) Pulse Ox O2 Delivery O2 Flow Rate FiO2 02/17/25 05:00 97.3 87 17 110/74 (86) 93 97.3 02/16/25 20:00 Oxymizer 9 N/A Total Intake and Output 02/16/25 02/16/25 02/17/25 15:00 23:00 07:00 Intake Total 50 ml 600 ml 750 ml Balance 50 ml 600 ml 750 ml medications Current Medications Medications Dose Ordered Sig/Nicolas Route Start Time Stop Time Status Last Admin Dose Admin Acetaminophen/ Hydrocodone Bitart 1 tab Q4HP PRN PO 02/10/25 17:00 Ondansetron HCl 4 mg Q4HP PRN IV 02/10/25 17:00 02/15/25 23:48 4 MG Docusate Sodium 100 mg BIDPRN PRN PO 02/10/25 17:00 02/11/25 22:24 100 MG Acetaminophen 650 mg Q6HP PRN PO 02/10/25 17:00 Ipratropium [place] 0.5 mg Q4HPRN PRN NEB 02/10/25 17:30 02/17/25 08:03 0.5 MG Albuterol 2.5 mg Q4HPRN PRN NEB 02/10/25 17:30 02/17/25 08:03 2.5 MG Apixaban 5 mg BID PO 02/10/25 22:00 02/16/25 21:36 5 MG Furosemide 40 mg QAM PO 02/11/25 07:00 02/16/25 06:07 40 MG Zolpidem Tartrate 10 mg HS PO 02/10/25 22:00 02/16/25 21:36 10 MG Calcium Carbonate 500 mg QIDPRN PRN PO 02/11/25 12:00 02/13/25 11:04 500 MG Ceftriaxone Sodium 50 ml @ 100 mls/hr DAILY@09 IV 02/14/25 09:00 02/16/25 09:42 100 MLS/HR Vancomycin HCl 0 ml @ 0 mls/hr PER PHARMACY IV 02/13/25 18:30 Vancomycin HCl 250 ml @ 250 mls/hr Q12H IV 02/16/25 04:00 02/17/25 03:56 250 MLS/HR Alprazolam 0.5 mg [id number] PRN PO 02/16/25 17:45 02/16/25 22:56 0.5 MG laboratory and microbiology Laboratory Tests 02/17/25 05:33 02/14/25 09:30 Test 02/14/25 09:30 Range/Units Serum Glucose 94 74-106 mg/dL Assessment/Plan Hypoxemic respiratory failure acute on chronic Pneumonia Pulmonary congestion COPD Cor pulmonale/pulmonary hypertension Chronic dependency on oxygen CT chest reviewed Significant cardiomegaly, especially the right atrium and right ventricle. Pulmonary arterial enlargement, suggestive of pulmonary arterial hypertension. Trace bilateral pleural effusions, [id number]-jhglqwv-jbyg-left. Bilateral lower lobe subsegmental dependent atelectasis, bphvy-asorlhl-paaa-left. No pneumothorax. Enlarged, heterogeneous multinodular thyroid. Nonemergent thyroid ultrasound is recommended. Management plan Supplemental O2 as needed Maintain O2 sats above 90% nebs bronchodilators Rocephin/abx Diurese with Lasix Monitor renal function Replace electrolytes keep potassium above 4 Supportive care Nutrition GI and DVT prophylaxis Otherwise management per primary team Dietary Evaluation Review Comments: Nutrition Recommendation: 1) Ensure High Protein 240ml TID 2) Monitor PO intake, lab values, weight trend, and I/O Expected Outcomes/Goals: Intake to meet >75% estimated needs FU 3-5 days Plan discussed with: Patient CARMELITA GARLAND MD Feb 17, 2025 09:20
--- NOTE | 2025-02-17 09:21 | DVHPN2 ---
Progress Note - Dictate Date Seen: Feb 17, 2025 Has the PT tested + for MRSA If YES, has PT been informed?: No Medical Necessity Reason Pt with a Central, PICC or Fol: No vital signs Vital Sign Date Time Temp Pulse Resp B/P (MAP) Pulse Ox O2 Delivery O2 Flow Rate FiO2 02/17/25 05:00 97.3 87 17 110/74 (86) 93 97.3 02/16/25 20:00 Oxymizer 9 N/A Total Intake and Output 02/16/25 02/16/25 02/17/25 15:00 23:00 07:00 Intake Total 50 ml 600 ml 750 ml Balance 50 ml 600 ml 750 ml medications Current Medications Medications Dose Ordered Sig/Nicolas Route Start Time Stop Time Status Last Admin Dose Admin Acetaminophen/ Hydrocodone Bitart 1 tab Q4HP PRN PO 02/10/25 17:00 Ondansetron HCl 4 mg Q4HP PRN IV 02/10/25 17:00 02/15/25 23:48 4 MG Docusate Sodium 100 mg BIDPRN PRN PO 02/10/25 17:00 02/11/25 22:24 100 MG Acetaminophen 650 mg Q6HP PRN PO 02/10/25 17:00 Ipratropium [place] 0.5 mg Q4HPRN PRN NEB 02/10/25 17:30 02/17/25 08:03 0.5 MG Albuterol 2.5 mg Q4HPRN PRN NEB 02/10/25 17:30 02/17/25 08:03 2.5 MG Apixaban 5 mg BID PO 02/10/25 22:00 02/16/25 21:36 5 MG Furosemide 40 mg QAM PO 02/11/25 07:00 02/16/25 06:07 40 MG Zolpidem Tartrate 10 mg HS PO 02/10/25 22:00 02/16/25 21:36 10 MG Calcium Carbonate 500 mg QIDPRN PRN PO 02/11/25 12:00 02/13/25 11:04 500 MG Ceftriaxone Sodium 50 ml @ 100 mls/hr DAILY@09 IV 02/14/25 09:00 02/16/25 09:42 100 MLS/HR Vancomycin HCl 0 ml @ 0 mls/hr PER PHARMACY IV 02/13/25 18:30 Vancomycin HCl 250 ml @ 250 mls/hr Q12H IV 02/16/25 04:00 02/17/25 03:56 250 MLS/HR Alprazolam 0.5 mg [id number] PRN PO 02/16/25 17:45 02/16/25 22:56 0.5 MG laboratory and microbiology Laboratory Tests 02/17/25 05:33 02/14/25 09:30 Test 02/14/25 09:30 Range/Units Serum Glucose 94 74-106 mg/dL Assessment/Plan Hypoxemic respiratory failure acute on chronic Pneumonia Pulmonary congestion COPD Cor pulmonale/pulmonary hypertension Chronic dependency on oxygen pl effusions -small CT chest reviewed Significant cardiomegaly, especially the right atrium and right ventricle. Pulmonary arterial enlargement, suggestive of pulmonary arterial hypertension. Trace bilateral pleural effusions, psuvm-[id number]-nlma-left. Bilateral lower lobe subsegmental dependent atelectasis, [id number]-avdqmsq-dqob-left. No pneumothorax. Enlarged, heterogeneous multinodular thyroid. Nonemergent thyroid ultrasound is recommended. events on [address]d Mild circumferential thickening of the descending colon which could be artifactual. Please correlate with any symptoms of a mild colitis. Otherwise no clear source for sepsis in the abdomen or pelvis. Small right-sided pleural effusion with patchy airspace disease throughout the right lower lobe. Management plan Supplemental O2 as needed Maintain O2 sats above 90% nebs bronchodilators Rocephin/abx Diurese with Lasix Monitor renal function Replace electrolytes keep potassium above 4 Supportive care Nutrition GI and DVT prophylaxis Otherwise management per primary team Dietary Evaluation Review Comments: Nutrition Recommendation: 1) Ensure High Protein 240ml TID 2) Monitor PO intake, lab values, weight trend, and I/O Expected Outcomes/Goals: Intake to meet >75% estimated needs FU 3-5 days Plan discussed with: Patient CARMELITA GARLAND MD Feb 17, 2025 09:21
--- NOTE | 2025-02-17 14:39 | DVHPN2 ---
Subjective Still c/o SOB She is on 12 liters O2 oximizer Reviewed: Care Plan, H&P, Labs, Medications, Previous Orders, Radiology Changes from previous H/P or p: Changes General: Per HPI Eyes: No Pain, No Vision change, No Conjunctivae inflammation, No Eyelid inflammation, No Other, No Redness ENT: No Ear pain, No Ear discharge, No Nose pain, No Nose discharge, No Nose congestion, No Mouth pain, No Mouth swelling, No Throat pain, No Throat swelling, No Other Cardiovascular: No Chest Pain, No Palpitations, No Orthopnea, No Paroxysmal Noc. Dyspnea, No Edema, No Lt Headedness, No Other Respiratory: No Cough, No Dry; Shortness of breath; No SOB with excertion, No Wheezing, No Hemoptysis, No Pleuritic Pain, No Sputum, No Other Gastrointestinal: No Nausea, No Vomiting, No Abdominal Pain, No Diarrhea, No Constipation, No Melena, No Hematochezia, No Other Genitourinary: No Dysuria, No Frequency, No Incontinence, No Hematuria, No Retention, No Other Musculoskeletal: No other, No neck pain, No shoulder pain, No arm pain, No back pain, No hand pain, No leg pain, No foot pain Skin: No Rash, No Lesions, No Jaundice, No Bruising, No Other Objective Vitals Vital Signs Date Time Temp Pulse Resp B/P (MAP) Pulse Ox O2 Delivery O2 Flow Rate FiO2 02/17/25 08:00 86 18 91 Oxymizer 14 N/A 02/17/25 05:00 97.3 110/74 (86) 97.3 Intake/Output Intake and Output 02/17/25 07:00 Intake Total 1400 ml Balance 1400 ml Intake Oral 1100 ml IV Total 300 ml # Voids 11 General Appearance: Alert, Oriented X3, moderate distress Lungs: Clear to auscultation Cardiovascular: Regular rate, Normal S1, Normal S2 Abdomen: Normal bowel sounds, Soft, No tenderness Extremities: No edema Medications Current Medications Medications Dose Ordered Sig/Nicolas Route Start Time Stop Time Status Last Admin Dose Admin Acetaminophen/ Hydrocodone Bitart 1 tab Q4HP PRN PO 02/10/25 17:00 Ondansetron HCl 4 mg Q4HP PRN IV 02/10/25 17:00 02/15/25 23:48 4 MG Docusate Sodium 100 mg BIDPRN PRN PO 02/10/25 17:00 02/11/25 22:24 100 MG Acetaminophen 650 mg Q6HP PRN PO 02/10/25 17:00 Ipratropium [place] 0.5 mg Q4HPRN PRN NEB 02/10/25 17:30 02/17/25 08:03 0.5 MG Albuterol 2.5 mg Q4HPRN PRN NEB 02/10/25 17:30 02/17/25 08:03 2.5 MG Apixaban 5 mg BID PO 02/10/25 22:00 02/17/25 10:22 5 MG Furosemide 40 mg QAM PO 02/11/25 07:00 02/16/25 06:07 40 MG Zolpidem Tartrate 10 mg HS PO 02/10/25 22:00 02/16/25 21:36 10 MG Calcium Carbonate 500 mg QIDPRN PRN PO 02/11/25 12:00 02/13/25 11:04 500 MG Ceftriaxone Sodium 50 ml @ 100 mls/hr DAILY@09 IV 02/14/25 09:00 02/17/25 10:22 100 MLS/HR Vancomycin HCl 0 ml @ 0 mls/hr PER PHARMACY IV 02/13/25 18:30 Vancomycin HCl 250 ml @ 250 mls/hr Q12H IV 02/16/25 04:00 02/17/25 03:56 250 MLS/HR Alprazolam 0.5 mg [id number] PRN PO 02/16/25 17:45 02/16/25 22:56 0.5 MG Methylprednisolone Sodium Succinate 40 mg BID IV 02/17/25 22:00 UNV Laboratory Results Laboratory Tests 02/14/25 09:30 02/17/25 05:33 Urinalysis Test 02/10/25 12:35 Urine Color Yellow (Yellow) Urine Clarity Clear (Clear) Urine pH 5.5 (5.0-9.0) Urine Specific [place] 1.021 (1.001-1.035) Urine Protein Trace (Negative) H Urine Ketones Trace (Negative) Urine Blood Negative /uL (Negative) Urine Nitrite Negative (Negative) Urine Bilirubin Negative (Negative) Urine Urobilinogen 2 mg/dL (Negative) H Urine Leukocyte Esterase Negative /uL (Negative) Urine RBC 1 /hpf (0 - 4) Urine Microscopic WBC 5 /HPF (0-5) Urine Squamous Epithelial Cells Few /hpf (<5) Urine Bacteria Few /hpf (None Seen) H Urine Hyaline Casts Many /lpf (0 - 2) Urine Mucus Few (None Seen) Urine Glucose Normal mg/dL (Normal) Microbiology Microbiology Date/Time Source Procedure Growth Status 02/13/25 19:00 Blood Blood Culture - Preliminary NO GROWTH AFTER 72 HOURS OF INCUBATION. Resulted Assessment/Plan Assessment/Plan Acute hypoxic respiratory failure COPD exacerbation Acute metabolic encephalopathy, resolved Hypoxemia, Possible lung mass, Transaminitis, Dehydration, Malnutrition, Atrial fibrillation, on Eliquis COPD, Neurofibromatosis sepsis with unclear source, suspected pna bacterial pneumonia colitis PLAN: Add steroids O2 prn Med Nebs IV antibiotics Eliquis Lasix Discussed with at the bedside Plan discussed with: Patient, Spouse My Orders Orders - KRISTINA GARCIA MD Procedure Category Date Status Time Methylprednisolone PHA 02/17/25 Logged Sod Succ (Solu Medrol 14:45 Methylprednisolone PHA 02/17/25 Logged Sod Succ (Solu Medrol 22:00 Complete Blood Count LAB 02/18/25 Verified 04:00 Comprehensive LAB 02/18/25 Verified Metabolic Panel 04:00 Magnesium LAB 02/18/25 Verified 04:00 Date of Service: Feb 17, 2025 Billing Provider: KRISTINA GARCIA MD Common Visit Codes: [id number] INP/OBS CARE(HIGH) KRISTINA GARCIA MD Feb 17, 2025 14:39
[2025-02-17] MEDS: methylPREDNISolone SOD SUCC 125 MG/2 ML VL IV ONE (15:26)
[2025-02-17] MEDS: ALBUTEROL SULF 2.5 MG/0.5ML(0.5%) NEB SOLN NEB SCH (18:58)
[2025-02-17] MEDS: IPRATROPIUM BROM 0.5 MG/2.5ML INH SOL NEB SCH (18:58)
[2025-02-17] MEDS: methylPREDNISolone SOD SUCC 40 MG/ML VL IV SCH (21:04)
[2025-02-18] VITALS (21 sets, daily range): BP systolic 104–124; BP diastolic 61–90; PULSE 18–114; RESP 15–22; TEMP 97.6–98.7; O2SAT 84–100
[2025-02-18] MEDS: VANCOMYCIN 1GM/250ML KIT 250 ML IV SCH (05:10)
[2025-02-18 06:05] LABS: Mean Corpuscular Hemoglobin 19.9 pg (28.0-32.0); Nucleated Red Blood Cells % 0.3 %
[2025-02-18 06:07] LABS: Hematocrit 37.4 % (36.0-46.0); Hemoglobin 11.2 g/dL (12.2-16.2); Mean Corpuscular Volume 66.1 fL (80.0-100.0)
[2025-02-18 06:46] LABS: Anion Gap 9 (5-15); BUN/Creatinine Ratio 33.9 (10.0-20.0); Blood Urea Nitrogen 20 mg/dL (9-23); Calcium 8.7 mg/dL (8.7-10.4); Magnesium 2.3 mg/dL (1.6-2.6); Potassium 3.7 mmol/L (3.5-5.1); Sodium 143 mmol/L (136-145); Total Protein 5.9 g/dL (5.7-8.2)
[2025-02-18 06:47] LABS: Albumin 3.5 g/dL (3.2-4.8); Bilirubin, Total 0.8 mg/dL (0.2-1.0)
[2025-02-18 06:48] LABS: Alanine Aminotransferase 60 U/L (7-40); Alkaline Phosphatase 161 U/L (46-116); Carbon Dioxide 38 mmol/L (20-31); Chloride 96 mmol/L (98-107); Glucose 150 mg/dL (74-106)
[2025-02-18 09:39] LABS: Base Excess 11.4 mmol/L (-2.0-3.0)
--- NOTE | 2025-02-18 13:38 | DVHPN2 ---
Progress Note - Dictate Date Seen: Feb 18, 2025 Medical Necessity Reason Pt with a Central, PICC or Fol: No vital signs Vital Sign Date Time Temp Pulse Resp B/P (MAP) Pulse Ox O2 Delivery O2 Flow Rate FiO2 02/18/25 12:00 106 02/18/25 12:00 16 121/70 (87) 98 02/18/25 11:20 45.0 100 02/18/25 11:00 98.7 98.7 02/18/25 08:10 Oxymizer Total Intake and Output 02/17/25 02/17/25 02/18/25 15:00 23:00 07:00 Intake Total 50 ml 1000 ml 550 ml Balance 50 ml 1000 ml 550 ml medications Current Medications Medications Dose Ordered Sig/Nicolas Route Start Time Stop Time Status Last Admin Dose Admin Acetaminophen/ Hydrocodone Bitart 1 tab Q4HP PRN PO 02/10/25 17:00 Ondansetron HCl 4 mg Q4HP PRN IV 02/10/25 17:00 02/15/25 23:48 4 MG Docusate Sodium 100 mg BIDPRN PRN PO 02/10/25 17:00 02/11/25 22:24 100 MG Acetaminophen 650 mg Q6HP PRN PO 02/10/25 17:00 Ipratropium [place] 0.5 mg Q4HPRN PRN NEB 02/10/25 17:30 02/17/25 08:03 0.5 MG Albuterol 2.5 mg Q4HPRN PRN NEB 02/10/25 17:30 02/17/25 08:03 2.5 MG Apixaban 5 mg BID PO 02/10/25 22:00 02/18/25 09:58 5 MG Furosemide 40 mg QAM PO 02/11/25 07:00 02/18/25 06:54 40 MG Zolpidem Tartrate 10 mg HS PO 02/10/25 22:00 02/17/25 21:04 10 MG Calcium Carbonate 500 mg QIDPRN PRN PO 02/11/25 12:00 02/13/25 11:04 500 MG Ceftriaxone Sodium 50 ml @ 100 mls/hr DAILY@09 IV 02/14/25 09:00 02/18/25 09:58 100 MLS/HR Vancomycin HCl 0 ml @ 0 mls/hr PER PHARMACY IV 02/13/25 18:30 Alprazolam 0.5 mg [id number] PRN PO 02/16/25 17:45 02/17/25 18:20 0.5 MG Methylprednisolone Sodium Succinate 40 mg BID IV 02/17/25 22:00 02/18/25 09:58 40 MG Albuterol 2.5 mg Q6HR NEB 02/17/25 18:00 02/18/25 07:17 2.5 MG Ipratropium [place] 0.5 mg Q6HR NEB 02/17/25 18:00 02/18/25 07:17 0.5 MG Vancomycin HCl 250 ml @ 250 mls/hr Q12H IV 02/18/25 05:00 02/18/25 05:10 250 MLS/HR laboratory and microbiology Laboratory Tests 02/18/25 05:06 Test 02/18/25 05:06 Range/Units Serum Glucose 150 H 74-106 mg/dL Assessment/Plan Hypoxemic respiratory failure acute on chronic Pneumonia Pulmonary congestion COPD Cor pulmonale/pulmonary hypertension Chronic dependency on oxygen pl effusions -small CT chest reviewed Significant cardiomegaly, especially the right atrium and right ventricle. Pulmonary arterial enlargement, suggestive of pulmonary arterial hypertension. Trace bilateral pleural effusions, dhwql-beghjna-ihuo-left. Bilateral lower lobe subsegmental dependent atelectasis, ctnhy-uwbgadj-zdjd-left. No pneumothorax. Enlarged, heterogeneous multinodular thyroid. Nonemergent thyroid ultrasound is recommended. events on [address]Abd Mild circumferential thickening of the descending colon which could be artifactual. Please correlate with any symptoms of a mild colitis. Otherwise no clear source for sepsis in the abdomen or pelvis. Small right-sided pleural effusion with patchy airspace disease throughout the right lower lobe. Management plan Supplemental O2 as needed Maintain O2 sats above 90% nebs bronchodilators Rocephin/abx Diurese with Lasix Monitor renal function Replace electrolytes keep potassium above 4 Supportive care Nutrition GI and DVT prophylaxis Otherwise management per primary team Dietary Evaluation Review Comments: Nutrition Recommendation: 1) Ensure High Protein 240ml TID 2) Monitor PO intake, lab values, weight trend, and I/O Expected Outcomes/Goals: Intake to meet >75% estimated needs FU 3-5 days CARMELITA GARLAND MD Feb 18, 2025 13:38
--- NOTE | 2025-02-18 14:24 | DVHPN2 ---
Subjective More hypoxic today Blood gas done this morning showed PO2 of 47.5 and pCO2 53.7 She is still on 12 L of oxygen Oxymizer Reviewed: Care Plan, H&P, Labs, Medications, Previous Orders, Radiology Changes from previous H/P or p: Changes General: Per HPI Eyes: No Pain, No Vision change, No Conjunctivae inflammation, No Eyelid inflammation, No Other, No Redness ENT: No Ear pain, No Ear discharge, No Nose pain, No Nose discharge, No Nose congestion, No Mouth pain, No Mouth swelling, No Throat pain, No Throat swelling, No Other Cardiovascular: No Chest Pain, No Palpitations, No Orthopnea, No Paroxysmal Noc. Dyspnea, No Edema, No Lt Headedness, No Other Respiratory: No Cough, No Dry; Shortness of breath; No SOB with excertion, No Wheezing, No Hemoptysis, No Pleuritic Pain, No Sputum, No Other Gastrointestinal: No Nausea, No Vomiting, No Abdominal Pain, No Diarrhea, No Constipation, No Melena, No Hematochezia, No Other Genitourinary: No Dysuria, No Frequency, No Incontinence, No Hematuria, No Retention, No Other Musculoskeletal: No other, No neck pain, No shoulder pain, No arm pain, No back pain, No hand pain, No leg pain, No foot pain Skin: No Rash, No Lesions, No Jaundice, No Bruising, No Other Objective Vitals Vital Signs Date Time Temp Pulse Resp B/P (MAP) Pulse Ox O2 Delivery O2 Flow Rate FiO2 02/18/25 13:00 106 20 120/68 (85) 97 02/18/25 11:20 45.0 100 02/18/25 11:00 98.7 98.7 02/18/25 08:10 Oxymizer Intake/Output Intake and Output 02/18/25 07:00 Intake Total 1600 ml Balance 1600 ml Intake Oral 1300 ml IV Total 300 ml # Voids 10 General Appearance: Alert, Oriented X3, moderate distress Lungs: Clear to auscultation Cardiovascular: Regular rate, Normal S1, Normal S2 Abdomen: Normal bowel sounds, Soft, No tenderness Extremities: No edema Medications Current Medications Medications Dose Ordered Sig/Nicolas Route Start Time Stop Time Status Last Admin Dose Admin Acetaminophen/ Hydrocodone Bitart 1 tab Q4HP PRN PO 02/10/25 17:00 Ondansetron HCl 4 mg Q4HP PRN IV 02/10/25 17:00 02/15/25 23:48 4 MG Docusate Sodium 100 mg BIDPRN PRN PO 02/10/25 17:00 02/11/25 22:24 100 MG Acetaminophen 650 mg Q6HP PRN PO 02/10/25 17:00 Ipratropium [place] 0.5 mg Q4HPRN PRN NEB 02/10/25 17:30 02/17/25 08:03 0.5 MG Albuterol 2.5 mg Q4HPRN PRN NEB 02/10/25 17:30 02/17/25 08:03 2.5 MG Apixaban 5 mg BID PO 02/10/25 22:00 02/18/25 09:58 5 MG Furosemide 40 mg QAM PO 02/11/25 07:00 02/18/25 06:54 40 MG Zolpidem Tartrate 10 mg HS PO 02/10/25 22:00 02/17/25 21:04 10 MG Calcium Carbonate 500 mg QIDPRN PRN PO 02/11/25 12:00 02/13/25 11:04 500 MG Ceftriaxone Sodium 50 ml @ 100 mls/hr DAILY@09 IV 02/14/25 09:00 02/18/25 09:58 100 MLS/HR Vancomycin HCl 0 ml @ 0 mls/hr PER PHARMACY IV 02/13/25 18:30 Alprazolam 0.5 mg [id number] PRN PO 02/16/25 17:45 02/17/25 18:20 0.5 MG Methylprednisolone Sodium Succinate 40 mg BID IV 02/17/25 22:00 02/18/25 09:58 40 MG Albuterol 2.5 mg Q6HR NEB 02/17/25 18:00 02/18/25 07:17 2.5 MG Ipratropium [place] 0.5 mg Q6HR NEB 02/17/25 18:00 02/18/25 07:17 0.5 MG Vancomycin HCl 250 ml @ 250 mls/hr Q12H IV 02/18/25 05:00 02/18/25 05:10 250 MLS/HR Laboratory Results Laboratory Tests 02/18/25 05:06 Chemistry Test 02/18/25 05:06 Albumin 3.5 g/dL (3.2-4.8) Calcium Level 8.7 mg/dL (8.7-10.4) Magnesium Level 2.3 mg/dL (1.6-2.6) Total Protein 5.9 g/dL (5.7-8.2) LFT Test 02/18/25 05:06 Alanine Aminotransferase (ALT) 60 U/L (7-40) H Alkaline Phosphatase 161 U/L (46-116) H Aspartate Amino Transferase (AST) 23 U/L (13-40) Total Bilirubin 0.8 mg/dL (0.2-1.0) Urinalysis Test 02/10/25 12:35 Urine Color Yellow (Yellow) Urine Clarity Clear (Clear) Urine pH 5.5 (5.0-9.0) Urine Specific [place] 1.021 (1.001-1.035) Urine Protein Trace (Negative) H Urine Ketones Trace (Negative) Urine Blood Negative /uL (Negative) Urine Nitrite Negative (Negative) Urine Bilirubin Negative (Negative) Urine Urobilinogen 2 mg/dL (Negative) H Urine Leukocyte Esterase Negative /uL (Negative) Urine RBC 1 /hpf (0 - 4) Urine Microscopic WBC 5 /HPF (0-5) Urine Squamous Epithelial Cells Few /hpf (<5) Urine Bacteria Few /hpf (None Seen) H Urine Hyaline Casts Many /lpf (0 - 2) Urine Mucus Few (None Seen) Urine Glucose Normal mg/dL (Normal) Blood Gas Results Test 02/18/25 09:30 Arterial Blood pH 7.457 (7.350-7.450) FiO2 % 82.0 Microbiology Microbiology Date/Time Source Procedure Growth Status 02/13/25 19:00 Blood Blood Culture - Preliminary NO GROWTH AFTER 72 HOURS OF INCUBATION. Resulted Assessment/Plan Assessment/Plan Acute hypoxic respiratory failure COPD exacerbation Acute metabolic encephalopathy, resolved Hypoxemia, Possible lung mass, Transaminitis, Dehydration, Malnutrition, Atrial fibrillation, on Eliquis COPD, Neurofibromatosis sepsis with unclear source, suspected pna bacterial pneumonia colitis PLAN: Add steroids O2 prn Med Nebs IV antibiotics Eliquis Lasix Discussed with at the bedside 02/18/2025: Hypoxia with hypercapnia: Start high-flow oxygen Transferred to the [facility] Continue steroids Continue IV antibiotics ceftriaxone and vancomycin Lasix Cuevas catheter Midline Eliquis Discuss the plan of care with the patient and at the bedside Full code Monitor closely Plan discussed with: Patient My Orders Orders - MIDOU,WAHID MD Procedure Category Date Status Time Methylprednisolone PHA 02/17/25 In Process Sod Succ (Solu Medrol 22:00 Albuterol Medneb PHA 02/17/25 In Process (Ventolin Medneb) 18:00 Ipratropium Medneb PHA 02/17/25 In Process (Atrovent Medneb) 18:00 Abg W/ Co-Ox RT 02/18/25 Logged 07:00 Oxygen By High-Flow RT 02/18/25 Transmitted 09:53 Abg W/ Co-Ox RT 02/18/25 Logged 12:30 Insert Midline ORDERS 02/18/25 Transmitted 12:40 Insert Cuevas Catheter KRISHNA 02/18/25 In Process 12:40 Urine Bacterial DARCIE 02/18/25 In Process Culture 13:15 2 Gm Sodium Diet DIET 02/18/25 Transmitted Dinner Date of Service: Feb 18, 2025 Billing Provider: KRISTINA GARCIA MD Common Visit Codes: [id number] INP/OBS CARE(HIGH) KRISTINA GARCIA MD Feb 18, 2025 14:24
[2025-02-18 16:55] LABS: Base Excess 13.5 mmol/L (-2.0-3.0)
[2025-02-19] VITALS (39 sets, daily range): BP systolic 98–177; BP diastolic 60–76; PULSE 99–118; RESP 11–23; TEMP 97.8–98.9; O2SAT 84–100
[2025-02-19 04:05] LABS: Base Excess 9.7 mmol/L (-2.0-3.0)
[2025-02-19] MEDS: ETOMIDATE (2MG/ML) 20ML VIAL IV ONE (04:31)
[2025-02-19] MEDS: ROCURONIUM 10MG/ML 10ML VIAL IV ONE (04:32)
[2025-02-19 06:07] LABS: Hematocrit 32.0 % (36.0-46.0); Hemoglobin 9.4 g/dL (12.2-16.2); Mean Corpuscular Hemoglobin 19.3 pg (28.0-32.0); Mean Corpuscular Volume 65.8 fL (80.0-100.0); Nucleated Red Blood Cells % 0.1 %
[2025-02-19 06:33] LABS: Albumin 3.3 g/dL (3.2-4.8); Anion Gap 8 (5-15); BUN/Creatinine Ratio 25.3 (10.0-20.0); Blood Urea Nitrogen 20 mg/dL (9-23); Magnesium 2.2 mg/dL (1.6-2.6); Potassium 3.8 mmol/L (3.5-5.1); Sodium 144 mmol/L (136-145)
[2025-02-19 06:34] LABS: Bilirubin, Total 0.6 mg/dL (0.2-1.0)
[2025-02-19 06:35] LABS: Carbon Dioxide 38 mmol/L (20-31); Chloride 98 mmol/L (98-107); Glucose 135 mg/dL (74-106)
[2025-02-19 06:36] LABS: Alanine Aminotransferase 45 U/L (7-40); Alkaline Phosphatase 128 U/L (46-116); Calcium 8.7 mg/dL (8.7-10.4); Total Protein 5.4 g/dL (5.7-8.2)
[2025-02-19 07:31] LABS: Base Excess 13.0 mmol/L (-2.0-3.0)
--- NOTE | 2025-02-19 07:33 | DVH ---
CHEST RADIOGRAPH Indication: interval changes Technique: Single frontal view of the chest was obtained Comparison: XY CHEST XRAY 1 VIEW on DOS: 02/10/25 FINDINGS: Lines and Tubes: None Lungs: There are bilateral airspace and interstitial opacities similar to prior study. Pleura: Possible small bilateral pleural effusions. No pneumothorax. Cardiomediastinal contours: Marked cardiomegaly. Bones: No acute osseous abnormality. IMPRESSION: 1. Increased opacification in the lungs since the prior right radiograph from 02/10/2025. 2. Marked cardiomegaly not significantly changed.
[2025-02-19] MEDS ORDERED: MEROPENEM 1GM IVPB 50 ML IV ONE (09:00)
[2025-02-19] MEDS: POTASSIUM EFFERVESENT TAB 25 MEQ PO ONE (10:28)
--- NOTE | 2025-02-19 12:07 | DVHPN2 ---
Subjective Still hypoxic She is still on high-flow oxygen Reviewed: Care Plan, H&P, Labs, Medications, Previous Orders, Radiology Changes from previous H/P or p: Changes General: Per HPI Eyes: No Pain, No Vision change, No Conjunctivae inflammation, No Eyelid inflammation, No Other, No Redness ENT: No Ear pain, No Ear discharge, No Nose pain, No Nose discharge, No Nose congestion, No Mouth pain, No Mouth swelling, No Throat pain, No Throat swelling, No Other Cardiovascular: No Chest Pain, No Palpitations, No Orthopnea, No Paroxysmal Noc. Dyspnea, No Edema, No Lt Headedness, No Other Respiratory: No Cough, No Dry; Shortness of breath; No SOB with excertion, No Wheezing, No Hemoptysis, No Pleuritic Pain, No Sputum, No Other Gastrointestinal: No Nausea, No Vomiting, No Abdominal Pain, No Diarrhea, No Constipation, No Melena, No Hematochezia, No Other Genitourinary: No Dysuria, No Frequency, No Incontinence, No Hematuria, No Retention, No Other Musculoskeletal: No other, No neck pain, No shoulder pain, No arm pain, No back pain, No hand pain, No leg pain, No foot pain Skin: No Rash, No Lesions, No Jaundice, No Bruising, No Other Objective Vitals Vital Signs Date Time Temp Pulse Resp B/P (MAP) Pulse Ox O2 Delivery O2 Flow Rate FiO2 02/19/25 12:02 106 18 93 02/19/25 11:51 40.0 70 02/19/25 11:00 114/76 (89) 02/19/25 10:57 Nasal Cannula 02/19/25 08:00 97.8 97.8 Intake/Output Intake and Output 02/19/25 07:00 Intake Total 1400 ml Output Total 1200 ml Balance 200 ml Intake Oral 850 ml IV Total 550 ml Output Urine Total 1200 ml Stool Total 0 ml General Appearance: Alert, Oriented X3, moderate distress Lungs: Clear to auscultation Cardiovascular: Regular rate, Normal S1, Normal S2 Abdomen: Normal bowel sounds, Soft, No tenderness Extremities: No edema Medications Current Medications Medications Dose Ordered Sig/Nicolas Route Start Time Stop Time Status Last Admin Dose Admin Acetaminophen/ Hydrocodone Bitart 1 tab Q4HP PRN PO 02/10/25 17:00 Ondansetron HCl 4 mg Q4HP PRN IV 02/10/25 17:00 02/15/25 23:48 4 MG Docusate Sodium 100 mg BIDPRN PRN PO 02/10/25 17:00 02/11/25 22:24 100 MG Acetaminophen 650 mg Q6HP PRN PO 02/10/25 17:00 Ipratropium [place] 0.5 mg Q4HPRN PRN NEB 02/10/25 17:30 02/17/25 08:03 0.5 MG Albuterol 2.5 mg Q4HPRN PRN NEB 02/10/25 17:30 02/17/25 08:03 2.5 MG Apixaban 5 mg BID PO 02/10/25 22:00 02/19/25 10:28 5 MG Furosemide 40 mg QAM PO 02/11/25 07:00 02/19/25 08:44 40 MG Zolpidem Tartrate 10 mg HS PO 02/10/25 22:00 02/18/25 21:12 10 MG Calcium Carbonate 500 mg QIDPRN PRN PO 02/11/25 12:00 02/13/25 11:04 500 MG Vancomycin HCl 0 ml @ 0 mls/hr PER PHARMACY IV 02/13/25 18:30 Alprazolam 0.5 mg [id number] PRN PO 02/16/25 17:45 02/17/25 18:20 0.5 MG Methylprednisolone Sodium Succinate 40 mg BID IV 02/17/25 22:00 02/18/25 21:12 40 MG Albuterol 2.5 mg Q6HR NEB 02/17/25 18:00 02/19/25 11:49 2.5 MG Ipratropium [place] 0.5 mg Q6HR NEB 02/17/25 18:00 02/19/25 11:49 0.5 MG Vancomycin HCl 250 ml @ 250 mls/hr Q12H IV 02/18/25 05:00 02/19/25 05:06 250 MLS/HR Meropenem 50 ml @ 17 mls/hr Q8HR IV 02/19/25 14:00 Laboratory Results Laboratory Tests 02/19/25 05:05 Chemistry Test 02/19/25 05:05 Albumin 3.3 g/dL (3.2-4.8) Calcium Level 8.7 mg/dL (8.7-10.4) Magnesium Level 2.2 mg/dL (1.6-2.6) Total Protein 5.4 g/dL (5.7-8.2) L LFT Test 02/19/25 05:05 Alanine Aminotransferase (ALT) 45 U/L (7-40) H Alkaline Phosphatase 128 U/L (46-116) H Aspartate Amino Transferase (AST) 21 U/L (13-40) Total Bilirubin 0.6 mg/dL (0.2-1.0) Urinalysis Test 02/10/25 12:35 Urine Color Yellow (Yellow) Urine Clarity Clear (Clear) Urine pH 5.5 (5.0-9.0) Urine Specific [place] 1.021 (1.001-1.035) Urine Protein Trace (Negative) H Urine Ketones Trace (Negative) Urine Blood Negative /uL (Negative) Urine Nitrite Negative (Negative) Urine Bilirubin Negative (Negative) Urine Urobilinogen 2 mg/dL (Negative) H Urine Leukocyte Esterase Negative /uL (Negative) Urine RBC 1 /hpf (0 - 4) Urine Microscopic WBC 5 /HPF (0-5) Urine Squamous Epithelial Cells Few /hpf (<5) Urine Bacteria Few /hpf (None Seen) H Urine Hyaline Casts Many /lpf (0 - 2) Urine Mucus Few (None Seen) Urine Glucose Normal mg/dL (Normal) Blood Gas Results Test 02/18/25 13:57 02/19/25 03:48 02/19/25 07:23 Arterial Blood pH 7.459 (7.350-7.450) 7.474 (7.350-7.450) 7.489 (7.350-7.450) FiO2 % 100.0 90.0 70.0 Microbiology Microbiology Date/Time Source Procedure Growth Status 02/13/25 19:00 Blood Blood Culture - Final NO GROWTH AFTER 5 DAYS OF INCUBATION. Complete Assessment/Plan Assessment/Plan Acute hypoxic respiratory failure COPD exacerbation Acute metabolic encephalopathy, resolved Hypoxemia, Possible lung mass, Transaminitis, Dehydration, Malnutrition, Atrial fibrillation, on Eliquis COPD, Neurofibromatosis sepsis with unclear source, suspected pna bacterial pneumonia colitis PLAN: Add steroids O2 prn Med Nebs IV antibiotics Eliquis Lasix Discussed with at the bedside 02/18/2025: Hypoxia with hypercapnia: Start high-flow oxygen Transferred to the [facility] Continue steroids Continue IV antibiotics ceftriaxone and vancomycin Lasix Cuevas catheter Midline Eliquis Discuss the plan of care with the patient and at the bedside Full code Monitor closely 02/19/2025: Sepsis: Switch Rocephin to meropenem Continue vancomycin Continue steroids Replace electrolytes as needed Eliquis Discussed with the at the bedside Full code except CPR Plan discussed with: Patient, Spouse My Orders Orders - KRISTINA GARCIA MD Procedure Category Date Status Time Insert Midline ORDERS 02/18/25 Transmitted 12:40 Urine Bacterial DARCIE 02/18/25 In Process Culture 13:15 2 Gm Sodium Diet DIET 02/18/25 Transmitted Dinner Mrsa Screen DARCIE 02/18/25 In Process 15:53 Meropenem 1gm Ivpb PHA 02/19/25 In Process (Merrem 1gm/50ml) 14:00 Communication Order ORDERS 02/19/25 Transmitted 10:02 Date of Service: Feb 19, 2025 Billing Provider: KRISTINA GARCIA MD Common Visit Codes: [id number] INP/OBS CARE(HIGH) KRISTINA GARCIA MD Feb 19, 2025 12:07
[2025-02-19] MEDS: FUROSEMIDE 40 MG/4 ML VIAL IV ONE (13:40)
[2025-02-19] MEDS: MEROPENEM 1GM IVPB 50 ML IV SCH (13:59)
[2025-02-19] MEDS: FUROSEMIDE 40 MG/4 ML VIAL ONE (14:00)
--- NOTE | 2025-02-19 14:29 | DVHPN2 ---
Progress Note - Dictate Date Seen: Feb 19, 2025 Medical Necessity Reason Pt with a Central, PICC or Fol: No vital signs Vital Sign Date Time Temp Pulse Resp B/P (MAP) Pulse Ox O2 Delivery O2 Flow Rate FiO2 02/19/25 14:00 105 20 96 02/19/25 12:21 Hi-Flow Heated NC+ 40 70 70 02/19/25 12:00 98.3 98.3 Total Intake and Output 02/18/25 02/18/25 02/19/25 15:00 23:00 07:00 Intake Total 50 ml 750 ml 600 ml Output Total 700 ml 500 ml Balance 50 ml 50 ml 100 ml medications Current Medications Medications Dose Ordered Sig/Nicolas Route Start Time Stop Time Status Last Admin Dose Admin Acetaminophen/ Hydrocodone Bitart 1 tab Q4HP PRN PO 02/10/25 17:00 Ondansetron HCl 4 mg Q4HP PRN IV 02/10/25 17:00 02/15/25 23:48 4 MG Docusate Sodium 100 mg BIDPRN PRN PO 02/10/25 17:00 02/11/25 22:24 100 MG Acetaminophen 650 mg Q6HP PRN PO 02/10/25 17:00 Ipratropium [place] 0.5 mg Q4HPRN PRN NEB 02/10/25 17:30 02/17/25 08:03 0.5 MG Albuterol 2.5 mg Q4HPRN PRN NEB 02/10/25 17:30 02/17/25 08:03 2.5 MG Apixaban 5 mg BID PO 02/10/25 22:00 02/19/25 10:28 5 MG Zolpidem Tartrate 10 mg HS PO 02/10/25 22:00 02/18/25 21:12 10 MG Calcium Carbonate 500 mg QIDPRN PRN PO 02/11/25 12:00 02/13/25 11:04 500 MG Vancomycin HCl 0 ml @ 0 mls/hr PER PHARMACY IV 02/13/25 18:30 Alprazolam 0.5 mg [id number] PRN PO 02/16/25 17:45 02/17/25 18:20 0.5 MG Methylprednisolone Sodium Succinate 40 mg BID IV 02/17/25 22:00 02/19/25 12:43 40 MG Albuterol 2.5 mg Q6HR NEB 02/17/25 18:00 02/19/25 11:49 2.5 MG Ipratropium [place] 0.5 mg Q6HR NEB 02/17/25 18:00 02/19/25 11:49 0.5 MG Vancomycin HCl 250 ml @ 250 mls/hr Q12H IV 02/18/25 05:00 02/19/25 05:06 250 MLS/HR Meropenem 50 ml @ 17 mls/hr Q8HR IV 02/19/25 14:00 02/19/25 13:59 17 MLS/HR Furosemide 40 mg DAILY IV 02/20/25 10:00 laboratory and microbiology Laboratory Tests 02/19/25 05:05 Test 02/19/25 05:05 Range/Units Serum Glucose 135 H 74-106 mg/dL Assessment/Plan Hypoxemic respiratory failure acute on chronic Pneumonia Pulmonary congestion COPD Cor pulmonale/pulmonary hypertension Chronic dependency on oxygen pl effusions -small imaging CT chest reviewed Significant cardiomegaly, especially the right atrium and right ventricle. Pulmonary arterial enlargement, suggestive of pulmonary arterial hypertension. Trace bilateral pleural effusions, xyxjn-madctet-mrjw-left. Bilateral lower lobe subsegmental dependent atelectasis, wnoro-tizncgs-jklb-left. No pneumothorax. Enlarged, heterogeneous multinodular thyroid. Nonemergent thyroid ultrasound is recommended. events none CTAbd Mild circumferential thickening of the descending colon which could be artifactual. Please correlate with any symptoms of a mild colitis. Otherwise no clear source for sepsis in the abdomen or pelvis. Small right-sided pleural effusion with patchy airspace disease throughout the right lower lobe. Management plan Supplemental O2 as needed Maintain O2 sats above 90% nebs bronchodilators Rocephin/abx Diurese with Lasix Monitor renal function Replace electrolytes keep potassium above 4 Supportive care Nutrition GI and DVT prophylaxis Otherwise management per primary team Dietary Evaluation Review Comments: Nutrition Recommendation: 1) Ensure High Protein 240ml TID 2) Monitor PO intake, lab values, weight trend, and I/O Expected Outcomes/Goals: Intake to meet >75% estimated needs FU 3-5 days Plan discussed with: Patient CARMELITA GARLAND MD Feb 19, 2025 14:29
[2025-02-19] MEDS: ALBUTEROL SULF 2.5 MG/0.5ML(0.5%) NEB SOLN ONE ×2 (17:55→23:26)
[2025-02-19] MEDS: IPRATROPIUM BROM 0.5 MG/2.5ML INH SOL ONE ×2 (17:55→23:26)
[2025-02-19] MEDS: methylPREDNISolone SOD SUCC 40 MG/ML VL ONE (21:52)
[2025-02-19] MEDS: MEROPENEM 1GM IVPB 50 ML IV ONE (21:52)
[2025-02-20] VITALS (35 sets, daily range): BP systolic 94–129; BP diastolic 40–81; PULSE 91–123; RESP 12–28; TEMP 96.9–98.9; O2SAT 83–99
[2025-02-20 06:27] LABS: Hematocrit 34.5 % (36.0-46.0); Hemoglobin 10.0 g/dL (12.2-16.2); Mean Corpuscular Hemoglobin 19.3 pg (28.0-32.0); Mean Corpuscular Volume 66.5 fL (80.0-100.0); Nucleated Red Blood Cells % 0.4 %
[2025-02-20] MEDS: ALBUTEROL SULF 2.5 MG/0.5ML(0.5%) NEB SOLN ONE (06:49)
[2025-02-20] MEDS: IPRATROPIUM BROM 0.5 MG/2.5ML INH SOL ONE (06:49)
[2025-02-20 06:50] LABS: Anisocytosis Slight
[2025-02-20 06:55] LABS: Potassium 4.3 mmol/L (3.5-5.1); Sodium 145 mmol/L (136-145)
[2025-02-20 06:56] LABS: Calcium 8.8 mg/dL (8.7-10.4)
[2025-02-20 07:01] LABS: BUN/Creatinine Ratio 33.8 (10.0-20.0)
[2025-02-20 07:02] LABS: Anion Gap 6.99999 (5-15); Blood Urea Nitrogen 23 mg/dL (9-23); Chloride 98 mmol/L (98-107); Glucose 137 mg/dL (74-106)
[2025-02-20 07:04] LABS: Carbon Dioxide > 40 mmol/L (20-31)
--- NOTE | 2025-02-20 07:13 | DVH ---
CHEST RADIOGRAPH Indication: hypoxia Technique: Single frontal view of the chest was obtained COMPARISON: XY CHEST XRAY 1 VIEW on DOS: 02/19/25, CT CHEST WITH CONTRAST on DOS: 02/10/25, XY CHEST XRAY 1 VIEW on DOS: 02/10/25 FINDINGS: Lines and Tubes: None Lungs: Multifocal airspace disease, unchanged Pleura: No effusion.No pneumothorax. Cardiomediastinal contours: Cardiomegaly. Bones: Unremarkable IMPRESSION: Multifocal airspace disease, unchanged.
[2025-02-20] MEDS: FUROSEMIDE 40 MG/4 ML VIAL ONE (09:43)
[2025-02-20] MEDS: FUROSEMIDE 40 MG/4 ML VIAL IV SCH (09:47)
[2025-02-20 11:09] LABS: Base Excess 16.1 mmol/L (-2.0-3.0)
--- NOTE | 2025-02-20 12:39 | DVHPN2 ---
Subjective Still hypoxic She is still on high-flow oxygen She is more lethargic today Blood gas was just done showed a pH of 7.5 and pCO2 of 53.6 and PO2 of 55.3 Reviewed: Care Plan, H&P, Labs, Medications, Previous Orders, Radiology Changes from previous H/P or p: Changes General: Per HPI Eyes: No Pain, No Vision change, No Conjunctivae inflammation, No Eyelid inflammation, No Other, No Redness ENT: No Ear pain, No Ear discharge, No Nose pain, No Nose discharge, No Nose congestion, No Mouth pain, No Mouth swelling, No Throat pain, No Throat swelling, No Other Cardiovascular: No Chest Pain, No Palpitations, No Orthopnea, No Paroxysmal Noc. Dyspnea, No Edema, No Lt Headedness, No Other Respiratory: No Cough, No Dry; Shortness of breath; No SOB with excertion, No Wheezing, No Hemoptysis, No Pleuritic Pain, No Sputum, No Other Gastrointestinal: No Nausea, No Vomiting, No Abdominal Pain, No Diarrhea, No Constipation, No Melena, No Hematochezia, No Other Genitourinary: No Dysuria, No Frequency, No Incontinence, No Hematuria, No Retention, No Other Musculoskeletal: No other, No neck pain, No shoulder pain, No arm pain, No back pain, No hand pain, No leg pain, No foot pain Skin: No Rash, No Lesions, No Jaundice, No Bruising, No Other Objective Vitals Vital Signs Date Time Temp Pulse Resp B/P (MAP) Pulse Ox O2 Delivery O2 Flow Rate FiO2 02/20/25 12:21 98 18 97 40.0 50 02/20/25 12:00 Hi-Flow Heated NC+ 02/20/25 10:00 121/81 (94) 02/20/25 08:00 97.6 97.6 Intake/Output Intake and Output 02/20/25 07:00 Intake Total 820 ml Output Total 4150 ml Balance -3330 ml Intake Oral 770 ml IV Total 50 ml Output Urine Total 4150 ml General Appearance: Alert, Oriented X3, moderate distress Lungs: Clear to auscultation Cardiovascular: Regular rate, Normal S1, Normal S2 Abdomen: Normal bowel sounds, Soft, No tenderness Extremities: No edema Medications Current Medications Medications Dose Ordered Sig/Nicolas Route Start Time Stop Time Status Last Admin Dose Admin Ondansetron HCl 4 mg Q4HP PRN IV 11/12/25 17:00 02/20/25 08:49 4 MG Docusate Sodium 100 mg BIDPRN PRN PO 02/10/25 17:00 02/11/25 22:24 100 MG Acetaminophen 650 mg Q6HP PRN PO 02/10/25 17:00 Ipratropium [place] 0.5 mg Q4HPRN PRN NEB 02/10/25 17:30 02/17/25 08:03 0.5 MG Albuterol 2.5 mg Q4HPRN PRN NEB 02/10/25 17:30 02/17/25 08:03 2.5 MG Apixaban 5 mg BID PO 02/10/25 22:00 02/19/25 22:25 5 MG Zolpidem Tartrate 10 mg HS PO 02/10/25 22:00 02/19/25 22:25 10 MG Calcium Carbonate 500 mg QIDPRN PRN PO 02/11/25 12:00 02/13/25 11:04 500 MG Vancomycin HCl 0 ml @ 0 mls/hr PER PHARMACY IV 02/13/25 18:30 Alprazolam 0.5 mg [id number] PRN PO 02/16/25 17:45 02/19/25 23:12 0.5 MG Methylprednisolone Sodium Succinate 40 mg BID IV 02/17/25 22:00 02/20/25 09:47 40 MG Albuterol 2.5 mg Q6HR NEB 02/17/25 18:00 02/20/25 12:20 2.5 MG Ipratropium [place] 0.5 mg Q6HR NEB 02/17/25 18:00 02/20/25 12:20 0.5 MG Meropenem 50 ml @ 17 mls/hr Q8HR IV 02/19/25 14:00 02/20/25 05:35 17 MLS/HR Acetazolamide Sodium 250 mg BID IV 02/20/25 22:00 Laboratory Results Laboratory Tests 02/20/25 06:05 Chemistry Test 02/20/25 06:05 Calcium Level 8.8 mg/dL (8.7-10.4) Magnesium Level 2.4 mg/dL (1.6-2.6) Urinalysis Test 02/10/25 12:35 Urine Color Yellow (Yellow) Urine Clarity Clear (Clear) Urine pH 5.5 (5.0-9.0) Urine Specific [place] 1.021 (1.001-1.035) Urine Protein Trace (Negative) H Urine Ketones Trace (Negative) Urine Blood Negative /uL (Negative) Urine Nitrite Negative (Negative) Urine Bilirubin Negative (Negative) Urine Urobilinogen 2 mg/dL (Negative) H Urine Leukocyte Esterase Negative /uL (Negative) Urine RBC 1 /hpf (0 - 4) Urine Microscopic WBC 5 /HPF (0-5) Urine Squamous Epithelial Cells Few /hpf (<5) Urine Bacteria Few /hpf (None Seen) H Urine Hyaline Casts Many /lpf (0 - 2) Urine Mucus Few (None Seen) Urine Glucose Normal mg/dL (Normal) Blood Gas Results Test 02/20/25 11:03 Arterial Blood pH 7.506 (7.350-7.450) FiO2 % 40.0 Microbiology Microbiology Date/Time Source Procedure Growth Status 02/18/25 13:00 Urine - [place] Urine Culture - Preliminary No growth Resulted 02/18/25 11:19 Nose MRSA Screen - Final Complete 02/13/25 19:00 Blood Blood Culture - Final NO GROWTH AFTER 5 DAYS OF INCUBATION. Complete Assessment/Plan Assessment/Plan Acute hypoxic respiratory failure COPD exacerbation Acute metabolic encephalopathy, resolved Hypoxemia, Possible lung mass, Transaminitis, Dehydration, Malnutrition, Atrial fibrillation, on Eliquis COPD, Neurofibromatosis sepsis with unclear source, suspected pna bacterial pneumonia colitis PLAN: Add steroids O2 prn Med Nebs IV antibiotics Eliquis Lasix Discussed with at the bedside 02/18/2025: Hypoxia with hypercapnia: Start high-flow oxygen Transferred to the [place] Continue steroids Continue IV antibiotics ceftriaxone and vancomycin Lasix [place] catheter Midline Eliquis Discuss the plan of care with the patient and at the bedside Full code Monitor closely 02/19/2025: Sepsis: Switch Rocephin to meropenem Continue vancomycin Continue steroids Replace electrolytes as needed Eliquis Discussed with the at the bedside Full code except CPR 02/20/2025: Acute on chronic hypoxic and hypercapnic respiratory failure Pneumonia COPD Sepsis Atrial fibrillation Neurofibromatosis Meropenem and vancomycin High-flow oxygen, keep saturation between 88 and 90 IV steroids Eliquis Stopped Xanax Give Ativan p.r.n. IV Plan discussed with: Patient, Spouse, Daughter My Orders Orders - KRISTINA GARCIA MD Procedure Category Date Status Time Chest Portable XY 02/20/25 Resulted 05:00 Abg W/ Co-Ox RT 02/20/25 Logged 10:30 Date of Service: Feb 20, 2025 Billing Provider: KRISTINA GARCIA MD Common Visit Codes: [id number] INP/OBS CARE(HIGH) KRISTINA GARCIA MD Feb 20, 2025 12:39
[2025-02-20] MEDS ORDERED: CARB1DRO15 OP (13:01)
--- NOTE | 2025-02-20 13:31 | DVHPN2 ---
Progress Note - Dictate Date Seen: Feb 20, 2025 Medical Necessity Reason Pt with a Central, PICC or Fol: No vital signs Vital Sign Date Time Temp Pulse Resp B/P (MAP) Pulse Ox O2 Delivery O2 Flow Rate FiO2 02/20/25 12:21 98 18 97 40.0 50 02/20/25 12:00 Hi-Flow Heated NC+ 02/20/25 10:00 121/81 (94) 02/20/25 08:00 97.6 97.6 Total Intake and Output 02/19/25 02/19/25 02/20/25 15:00 23:00 07:00 Intake Total 50 ml 420 ml 350 ml Output Total 3350 ml 800 ml Balance 50 ml -2930 ml -450 ml medications Current Medications Medications Dose Ordered Sig/Nicolas Route Start Time Stop Time Status Last Admin Dose Admin Ondansetron HCl 4 mg Q4HP PRN IV 02/10/25 17:00 02/20/25 08:49 4 MG Docusate Sodium 100 mg BIDPRN PRN PO 02/10/25 17:00 02/11/25 22:24 100 MG Acetaminophen 650 mg Q6HP PRN PO 02/10/25 17:00 Ipratropium [place] 0.5 mg Q4HPRN PRN NEB 02/10/25 17:30 02/17/25 08:03 0.5 MG Albuterol 2.5 mg Q4HPRN PRN NEB 02/10/25 17:30 02/17/25 08:03 2.5 MG Apixaban 5 mg BID PO 02/10/25 22:00 02/19/25 22:25 5 MG Zolpidem Tartrate 10 mg HS PO 02/10/25 22:00 02/19/25 22:25 10 MG Calcium Carbonate 500 mg QIDPRN PRN PO 02/11/25 12:00 02/13/25 11:04 500 MG Vancomycin HCl 0 ml @ 0 mls/hr PER PHARMACY IV 02/13/25 18:30 Methylprednisolone Sodium Succinate 40 mg BID IV 02/17/25 22:00 02/20/25 09:47 40 MG Albuterol 2.5 mg Q6HR NEB 02/17/25 18:00 02/20/25 12:20 2.5 MG Ipratropium [place] 0.5 mg Q6HR NEB 02/17/25 18:00 02/20/25 12:20 0.5 MG Meropenem 50 ml @ 17 mls/hr Q8HR IV 02/19/25 14:00 02/20/25 05:35 17 MLS/HR Acetazolamide Sodium 250 mg BID IV 02/20/25 22:00 Lorazepam 0.5 mg Q6HP PRN IV 02/20/25 12:45 laboratory and microbiology Laboratory Tests 02/20/25 06:05 Test 02/20/25 06:05 Range/Units Serum Glucose 137 H 74-106 mg/dL Assessment/Plan Hypoxemic respiratory failure acute on chronic Pneumonia Pulmonary congestion COPD Cor pulmonale/pulmonary hypertension Chronic dependency on oxygen pl effusions -small Patient seen and examined Events Remains on high flow 40% No new complaints CT chest reviewed Significant cardiomegaly, especially the right atrium and right ventricle. Pulmonary arterial enlargement, suggestive of pulmonary arterial hypertension. Trace bilateral pleural effusions, rzdeb-scgxhhv-wevb-left. Bilateral lower lobe subsegmental dependent atelectasis, sgwai-mvxxrdp-ljza-left. No pneumothorax. Enlarged, heterogeneous multinodular thyroid. Nonemergent thyroid ultrasound is recommended. Management plan Supplemental O2 as needed Maintain O2 sats above 90% nebs bronchodilators Rocephin/abx Continue steroids Diurese with Lasix Monitor renal function Replace electrolytes keep potassium above 4 Supportive care Nutrition GI and DVT prophylaxis Otherwise management per primary team Dietary Evaluation Review Comments: Nutrition Recommendation: 1) Ensure High Protein 240ml TID 2) Monitor PO intake, lab values, weight trend, and I/O Expected Outcomes/Goals: Intake to meet >75% estimated needs FU 3-5 days Plan discussed with: Patient CARMELITA GARLAND MD Feb 20, 2025 13:31
[2025-02-20] MEDS ORDERED: ARTIFICIAL TEARS 15ml EACHEYE PRN (15:00)
[2025-02-20] MEDS: LORazepam 2MG/ML-1ML VIAL ONE (16:56)
[2025-02-20] MEDS: LORazepam 2MG/ML-1ML VIAL IV PRN (16:56)
--- NOTE | 2025-02-20 17:51 | ECG ---
[facility] Test Date: 2025-02-19 Test Time: 03:42:01 Pat Name: ANNMARIE ENNIS Department: Respiratoy Room: [address] [place] [address] Gender: F Tailer In: [place] : 1950 Requested By: CARMELITA GARLAND Order Number: [id number] Reading MD: Hardy Edwards Measurements Intervals Vici Rate: 104 P: 32 [place]: 168 QRS: 199 QRSD: 96 T: 2 QT: 342 QTc: 450 Interpretive Statements Sinus tachycardia Multiform ventricular premature complexes Probable left atrial enlargement Probable right ventricular hypertrophy Borderline T abnormalities, anterior leads Baseline wander in lead(s) V3 Electronically Signed On 02-21-2025 14:43:19 PST by Hardy Edwards Please click the below link to view image of tracing.
[2025-02-20] MEDS: VANCOMYCIN 500mg/100mL 100 ML IV ONE ×2 (19:50→20:47)
[2025-02-20] MEDS: acetaZOLAMIDE SODIUM 500 MG VL IV SCH (21:43)
[2025-02-21] VITALS (30 sets, daily range): BP systolic 101–137; BP diastolic 49–80; PULSE 91–114; RESP 11–22; TEMP 97.9–98.9; O2SAT 83–100
[2025-02-21] MEDS: VANCOMYCIN 500mg/100mL 100 ML IV SCH (05:32)
[2025-02-21 06:54] LABS: Potassium 4.7 mmol/L (3.5-5.1); Sodium 145 mmol/L (136-145)
[2025-02-21 06:56] LABS: Calcium 9.1 mg/dL (8.7-10.4)
[2025-02-21 07:00] LABS: BUN/Creatinine Ratio 35.2 (10.0-20.0)
[2025-02-21 07:07] LABS: Chloride 96 mmol/L (98-107)
[2025-02-21 07:08] LABS: Anion Gap 8.99999 (5-15); Blood Urea Nitrogen 25 mg/dL (9-23); Carbon Dioxide > 40 mmol/L (20-31); Glucose 131 mg/dL (74-106)
[2025-02-21 07:28] LABS: Hematocrit 33.2 % (36.0-46.0); Hemoglobin 10.1 g/dL (12.2-16.2); Mean Corpuscular Hemoglobin 19.9 pg (28.0-32.0); Mean Corpuscular Volume 65.6 fL (80.0-100.0); Nucleated Red Blood Cells % 0.1 %
[2025-02-21] MEDS: acetaZOLAMIDE SODIUM 500 MG VL IV SCH (10:00)
--- NOTE | 2025-02-21 10:59 | DVH ---
CHEST RADIOGRAPH Indication: PNA Technique: Single frontal view of the chest was obtained Comparison: XY CHEST PORTABLE on DOS: 02/20/25, XY CHEST XRAY 1 VIEW on DOS: 02/19/25, XY CHEST XRAY 1 VIEW on DOS: 02/10/25 FINDINGS: Lines and Tubes: None Lungs: Bulky bilateral multifocal airspace disease slightly worse in the left base than on 02/20/2025 Pleura: No effusion. No pneumothorax. Cardiomediastinal contours: Unremarkable Bones: No acute osseous abnormality. IMPRESSION: 1. Unimproved airspace disease when compared to 02/20/2025 2. New airspace disease LEFT lower lobe when compared to 02/20/2025.
--- NOTE | 2025-02-21 11:42 | DVHPN2 ---
Subjective Confused Less hypoxic More alert today Reviewed: Care Plan, H&P, Labs, Medications, Previous Orders, Radiology Changes from previous H/P or p: Changes General: Per HPI Eyes: No Pain, No Vision change, No Conjunctivae inflammation, No Eyelid inflammation, No Other, No Redness ENT: No Ear pain, No Ear discharge, No Nose pain, No Nose discharge, No Nose congestion, No Mouth pain, No Mouth swelling, No Throat pain, No Throat swelling, No Other Cardiovascular: No Chest Pain, No Palpitations, No Orthopnea, No Paroxysmal Noc. Dyspnea, No Edema, No Lt Headedness, No Other Respiratory: No Cough, No Dry; Shortness of breath; No SOB with excertion, No Wheezing, No Hemoptysis, No Pleuritic Pain, No Sputum, No Other Gastrointestinal: No Nausea, No Vomiting, No Abdominal Pain, No Diarrhea, No Constipation, No Melena, No Hematochezia, No Other Genitourinary: No Dysuria, No Frequency, No Incontinence, No Hematuria, No Retention, No Other Musculoskeletal: No other, No neck pain, No shoulder pain, No arm pain, No back pain, No hand pain, No leg pain, No foot pain Skin: No Rash, No Lesions, No Jaundice, No Bruising, No Other Objective Vitals Vital Signs Date Time Temp Pulse Resp B/P (MAP) Pulse Ox O2 Delivery O2 Flow Rate FiO2 02/21/25 11:00 103 17 111/69 (83) 88 02/21/25 10:18 40.0 35 02/21/25 08:00 Hi-Flow Heated NC+ 02/21/25 08:00 98.8 98.8 Intake/Output Intake and Output 02/21/25 07:00 Intake Total 1100 ml Output Total 2301 ml Balance -1201 ml Intake Oral 900 ml IV Total 200 ml Output Urine Total 2300 ml Stool Total 1 ml # Bowel Movements 1 General Appearance: Alert, Oriented X3, moderate distress Lungs: Clear to auscultation Cardiovascular: Regular rate, Normal S1, Normal S2 Abdomen: Normal bowel sounds, Soft, No tenderness Extremities: No edema Medications Current Medications Medications Dose Ordered Sig/Nicolas Route Start Time Stop Time Status Last Admin Dose Admin Ondansetron HCl 4 mg Q4HP PRN IV 02/10/25 17:00 02/20/25 08:49 4 MG Docusate Sodium 100 mg BIDPRN PRN PO 02/10/25 17:00 02/20/25 15:33 100 MG Acetaminophen 650 mg Q6HP PRN PO 02/10/25 17:00 Ipratropium [place] 0.5 mg Q4HPRN PRN NEB 02/10/25 17:30 02/17/25 08:03 0.5 MG Albuterol 2.5 mg Q4HPRN PRN NEB 02/10/25 17:30 02/17/25 08:03 2.5 MG Apixaban 5 mg BID PO 02/10/25 22:00 02/21/25 09:27 5 MG Zolpidem Tartrate 10 mg HS PO 02/10/25 22:00 02/20/25 21:41 10 MG Calcium Carbonate 500 mg QIDPRN PRN PO 02/11/25 12:00 02/13/25 11:04 500 MG Vancomycin HCl 0 ml @ 0 mls/hr PER PHARMACY IV 02/13/25 18:30 Methylprednisolone Sodium Succinate 40 mg BID IV 02/17/25 22:00 02/21/25 09:26 40 MG Albuterol 2.5 mg Q6HR NEB 02/17/25 18:00 02/21/25 07:19 2.5 MG Ipratropium [place] 0.5 mg Q6HR NEB 02/17/25 18:00 02/21/25 07:19 0.5 MG Meropenem 50 ml @ 17 mls/hr Q8HR IV 02/19/25 14:00 02/21/25 06:27 17 MLS/HR Lorazepam 0.5 mg Q6HP PRN IV 02/20/25 12:45 02/20/25 16:56 0.5 MG Artificial Tears 1 drop Q6HP PRN EACHEYE 02/20/25 15:00 Vancomycin HCl 100 ml @ 200 mls/hr Q12H IV 02/21/25 06:00 02/21/25 05:32 200 MLS/HR Acetazolamide Sodium 250 mg BID IV 02/21/25 10:00 Laboratory Results Laboratory Tests 02/21/25 05:49 Chemistry Test 02/21/25 05:49 Calcium Level 9.1 mg/dL (8.7-10.4) Urinalysis Test 02/10/25 12:35 Urine Color Yellow (Yellow) Urine Clarity Clear (Clear) Urine pH 5.5 (5.0-9.0) Urine Specific [place] 1.021 (1.001-1.035) Urine Protein Trace (Negative) H Urine Ketones Trace (Negative) Urine Blood Negative /uL (Negative) Urine Nitrite Negative (Negative) Urine Bilirubin Negative (Negative) Urine Urobilinogen 2 mg/dL (Negative) H Urine Leukocyte Esterase Negative /uL (Negative) Urine RBC 1 /hpf (0 - 4) Urine Microscopic WBC 5 /HPF (0-5) Urine Squamous Epithelial Cells Few /hpf (<5) Urine Bacteria Few /hpf (None Seen) H Urine Hyaline Casts Many /lpf (0 - 2) Urine Mucus Few (None Seen) Urine Glucose Normal mg/dL (Normal) Microbiology Microbiology Date/Time Source Procedure Growth Status 02/18/25 13:00 Urine - [place] Urine Culture - Preliminary Resulted 02/18/25 11:19 Nose MRSA Screen - Final Complete 02/13/25 19:00 Blood Blood Culture - Final NO GROWTH AFTER 5 DAYS OF INCUBATION. Complete Assessment/Plan Assessment/Plan Acute hypoxic respiratory failure COPD exacerbation Acute metabolic encephalopathy, resolved Hypoxemia, Possible lung mass, Transaminitis, Dehydration, Malnutrition, Atrial fibrillation, on Eliquis COPD, Neurofibromatosis sepsis with unclear source, suspected pna bacterial pneumonia colitis PLAN: Add steroids O2 prn Med Nebs IV antibiotics Eliquis Lasix Discussed with at the bedside 02/18/2025: Hypoxia with hypercapnia: Start high-flow oxygen Transferred to the [place] Continue steroids Continue IV antibiotics ceftriaxone and vancomycin Lasix [place] catheter Midline Eliquis Discuss the plan of care with the patient and at the bedside Full code Monitor closely 02/19/2025: Sepsis: Switch Rocephin to meropenem Continue vancomycin Continue steroids Replace electrolytes as needed Eliquis Discussed with the at the bedside Full code except CPR 02/20/2025: Acute on chronic hypoxic and hypercapnic respiratory failure Pneumonia COPD Sepsis Atrial fibrillation Neurofibromatosis Meropenem and vancomycin High-flow oxygen, keep saturation between 88 and 90 IV steroids Eliquis Stopped Xanax Give Ativan p.r.n. IV 02/21/2025: Continue the current management with IV antibiotics and IV steroids Oxygen as needed Tapered down the oxygen to keep saturation 88-90 Monitor closely Discussed with the and daughter at the bedside Plan discussed with: Patient, Spouse, Daughter My Orders Orders - KRISTINA GARCIA MD Procedure Category Date Status Time Lorazepam 2mg/Ml Inj PHA 02/20/25 In Process (Ativan Inj) 12:45 Artificial Tear 15ml PHA 02/20/25 In Process Opthalmic (Tears Na 15:00 Chest Portable XY 02/21/25 Resulted 10:24 Date of Service: Feb 21, 2025 Billing Provider: KRISTINA GARCIA MD Common Visit Codes: [id number] INP/OBS CARE(HIGH) KRISTINA GARCIA MD Feb 21, 2025 11:42
--- NOTE | 2025-02-21 14:08 | MEDREC ---
[facility] ASP Intervention Section I [facility] Intervention: Deescalate AB based on CS (PLEASE CONSIDER D/C VANCOMYCIN - NARES SCREENING FOR MRSA HAS A HIGH SPECIFICITY AND NEGATIVE PREDICTIVE VALUE FOR RULING OUT MRSA PNEUMONIA ), Review courses of therapy (PLEASE CONSIDER ADDING ATYPICAL COVERAGE (AZITHROMYCIN OR DOXYCYLINE)) ANDRES DONNELLY PHARMACIST Feb 21, 2025 14:08
--- NOTE | 2025-02-21 14:54 | DVHPN2 ---
Progress Note - Dictate Date Seen: Feb 21, 2025 Medical Necessity Reason Pt with a Central, PICC or Fol: No vital signs Vital Sign Date Time Temp Pulse Resp B/P (MAP) Pulse Ox O2 Delivery O2 Flow Rate FiO2 02/21/25 14:01 103 111/49 (69) 90 02/21/25 13:00 18 02/21/25 12:00 Hi-Flow Heated [place]+ 40 40 40 02/21/25 12:00 97.9 97.9 Total Intake and Output 02/20/25 02/20/25 02/21/25 15:00 23:00 07:00 Intake Total 500 ml 600 ml Output Total 1751 ml 550 ml Balance -1251 ml 50 ml medications Current Medications Medications Dose Ordered Sig/Nicolas Route Start Time Stop Time Status Last Admin Dose Admin Ondansetron HCl 4 mg Q4HP PRN IV 02/10/25 17:00 02/20/25 08:49 4 MG Docusate Sodium 100 mg BIDPRN PRN PO 02/10/25 17:00 02/20/25 15:33 100 MG Acetaminophen 650 mg Q6HP PRN PO 02/10/25 17:00 Hold Ipratropium [place] 0.5 mg Q4HPRN PRN NEB 02/10/25 17:30 02/17/25 08:03 0.5 MG Albuterol 2.5 mg Q4HPRN PRN NEB 02/10/25 17:30 02/17/25 08:03 2.5 MG Apixaban 5 mg BID PO 02/10/25 22:00 02/21/25 09:27 5 MG Zolpidem Tartrate 10 mg HS PO 02/10/25 22:00 02/20/25 21:41 10 MG Calcium Carbonate 500 mg QIDPRN PRN PO 02/11/25 12:00 02/13/25 11:04 500 MG Vancomycin HCl 0 ml @ 0 mls/hr PER PHARMACY IV 02/13/25 18:30 Methylprednisolone Sodium Succinate 40 mg BID IV 02/17/25 22:00 02/21/25 09:26 40 MG Albuterol 2.5 mg Q6HR NEB 02/17/25 18:00 02/21/25 12:30 2.5 MG Ipratropium [place] 0.5 mg Q6HR NEB 02/17/25 18:00 02/21/25 12:30 0.5 MG Lorazepam 0.5 mg Q6HP PRN IV 02/20/25 12:45 02/20/25 16:56 0.5 MG Artificial Tears 1 drop Q6HP PRN EACHEYE 02/20/25 15:00 Vancomycin HCl 100 ml @ 200 mls/hr Q12H IV 02/21/25 06:00 02/21/25 05:32 200 MLS/HR Acetazolamide Sodium 250 mg BID IV 02/21/25 10:00 Meropenem 50 ml @ 17 mls/hr Q12H IV 02/22/25 02:00 laboratory and microbiology Laboratory Tests 02/21/25 05:49 Test 02/21/25 05:49 Range/Units Serum Glucose 131 H 74-106 mg/dL Assessment/Plan Hypoxemic respiratory failure acute on chronic Pneumonia Pulmonary congestion COPD Cor pulmonale/pulmonary hypertension Chronic dependency on oxygen pl effusions -small Patient seen and examined Events Remains on high flow 40% No distress CT chest reviewed Significant cardiomegaly, especially the right atrium and right ventricle. Pulmonary arterial enlargement, suggestive of pulmonary arterial hypertension. Trace bilateral pleural effusions, rjczx-qntyohj-wrko-left. Bilateral lower lobe subsegmental dependent atelectasis, pvwyv-uyujlhu-faco-left. No pneumothorax. Enlarged, heterogeneous multinodular thyroid. Nonemergent thyroid ultrasound is recommended. Management plan Supplemental O2 as needed Maintain O2 sats above 90% nebs bronchodilators Rocephin/abx Continue steroids Diurese with Lasix Monitor renal function Replace electrolytes keep potassium above 4 Supportive care Nutrition GI and DVT prophylaxis Otherwise management per primary team Dietary Evaluation Review Comments: Nutrition Recommendation: 1) Ensure High Protein 240ml TID 2) Monitor PO intake, lab values, weight trend, and I/O Expected Outcomes/Goals: Intake to meet >75% estimated needs FU 3-5 days Plan discussed with: Patient CARMELITA GARLAND MD Feb 21, 2025 14:54
[2025-02-21] MEDS: FUROSEMIDE 40 MG/4 ML VIAL IV ONE (15:26)
[2025-02-22] VITALS (19 sets, daily range): BP systolic 107–110; BP diastolic 62–74; PULSE 91–107; RESP 13–20; TEMP 97.7–99.1; O2SAT 90–98
[2025-02-22] MEDS: MEROPENEM 1GM IVPB 50 ML IV SCH (02:53)
[2025-02-22 06:25] LABS: Hematocrit 35.1 % (36.0-46.0); Hemoglobin 10.7 g/dL (12.2-16.2); Mean Corpuscular Hemoglobin 20.0 pg (28.0-32.0); Mean Corpuscular Volume 66.0 fL (80.0-100.0); Nucleated Red Blood Cells % 0.1 %
[2025-02-22 06:39] LABS: Alanine Aminotransferase 31 U/L (7-40); Alkaline Phosphatase 106 U/L (46-116); BUN/Creatinine Ratio 38.9 (10.0-20.0); Calcium 8.7 mg/dL (8.7-10.4); Potassium 5.0 mmol/L (3.5-5.1); Sodium 144 mmol/L (136-145)
[2025-02-22 06:40] LABS: Albumin 3.4 g/dL (3.2-4.8); Bilirubin, Total 1.0 mg/dL (0.2-1.0)
[2025-02-22 06:57] LABS: Anion Gap 8.99999 (5-15); Blood Urea Nitrogen 28 mg/dL (9-23); Chloride 95 mmol/L (98-107); Glucose 131 mg/dL (74-106); Total Protein 5.5 g/dL (5.7-8.2)
[2025-02-22 06:58] LABS: Carbon Dioxide > 40 mmol/L (20-31)
[2025-02-22 07:39] LABS: Urine Protein, UAD TRACE (Negative)
--- NOTE | 2025-02-22 09:10 | DVHPN2 ---
Subjective Better More alert She is down to 5 L nasal cannula Oxymizer Reviewed: Care Plan, H&P, Labs, Medications, Previous Orders, Radiology Changes from previous H/P or p: Changes General: Per HPI Eyes: No Pain, No Vision change, No Conjunctivae inflammation, No Eyelid inflammation, No Other, No Redness ENT: No Ear pain, No Ear discharge, No Nose pain, No Nose discharge, No Nose congestion, No Mouth pain, No Mouth swelling, No Throat pain, No Throat swelling, No Other Cardiovascular: No Chest Pain, No Palpitations, No Orthopnea, No Paroxysmal Noc. Dyspnea, No Edema, No Lt Headedness, No Other Respiratory: No Cough, No Dry; Shortness of breath; No SOB with excertion, No Wheezing, No Hemoptysis, No Pleuritic Pain, No Sputum, No Other Gastrointestinal: No Nausea, No Vomiting, No Abdominal Pain, No Diarrhea, No Constipation, No Melena, No Hematochezia, No Other Genitourinary: No Dysuria, No Frequency, No Incontinence, No Hematuria, No Retention, No Other Musculoskeletal: No other, No neck pain, No shoulder pain, No arm pain, No back pain, No hand pain, No leg pain, No foot pain Skin: No Rash, No Lesions, No Jaundice, No Bruising, No Other Objective Vitals Vital Signs Date Time Temp Pulse Resp B/P (MAP) Pulse Ox O2 Delivery O2 Flow Rate FiO2 02/22/25 08:00 15 98 Oxymizer 6 N/A 02/22/25 08:00 92 02/22/25 07:59 97.9 109/64 (79) 97.9 Intake/Output Intake and Output 02/22/25 07:00 Intake Total 810 ml Output Total 2875 ml Balance -2065 ml Intake Oral 760 ml IV Total 50 ml Output Urine Total 2875 ml # Bowel Movements 3 General Appearance: Alert, Oriented X3, moderate distress Lungs: Clear to auscultation Cardiovascular: Regular rate, Normal S1, Normal S2 Abdomen: Normal bowel sounds, Soft, No tenderness Extremities: No edema Medications Current Medications Medications Dose Ordered Sig/Nicolas Route Start Time Stop Time Status Last Admin Dose Admin Ondansetron HCl 4 mg Q4HP PRN IV 02/10/25 17:00 02/20/25 08:49 4 MG Docusate Sodium 100 mg BIDPRN PRN PO 02/10/25 17:00 02/20/25 15:33 100 MG Acetaminophen 650 mg Q6HP PRN PO 02/10/25 17:00 Hold Ipratropium [place] 0.5 mg Q4HPRN PRN NEB 02/10/25 17:30 02/17/25 08:03 0.5 MG Albuterol 2.5 mg Q4HPRN PRN NEB 02/10/25 17:30 02/17/25 08:03 2.5 MG Apixaban 5 mg BID PO 02/10/25 22:00 02/21/25 21:14 5 MG Zolpidem Tartrate 10 mg HS PO 02/10/25 22:00 02/21/25 21:14 10 MG Calcium Carbonate 500 mg QIDPRN PRN PO 02/11/25 12:00 02/13/25 11:04 500 MG Methylprednisolone Sodium Succinate 40 mg BID IV 02/17/25 22:00 02/21/25 21:15 40 MG Albuterol 2.5 mg Q6HR NEB 02/17/25 18:00 02/22/25 06:00 2.5 MG Ipratropium [place] 0.5 mg Q6HR NEB 02/17/25 18:00 02/22/25 06:00 0.5 MG Lorazepam 0.5 mg Q6HP PRN IV 02/20/25 12:45 02/20/25 16:56 0.5 MG Artificial Tears 1 drop Q6HP PRN EACHEYE 02/20/25 15:00 Meropenem 50 ml @ 17 mls/hr Q12H IV 02/22/25 02:00 02/22/25 02:53 17 MLS/HR Furosemide 40 mg DAILY IV 02/22/25 10:00 Doxycycline Hyclate 100 ml @ 50 mls/hr Q12H IV 02/22/25 16:00 Laboratory Results Laboratory Tests 02/22/25 05:30 Chemistry Test 02/22/25 05:30 Albumin 3.4 g/dL (3.2-4.8) Calcium Level 8.7 mg/dL (8.7-10.4) Total Protein 5.5 g/dL (5.7-8.2) L LFT Test 02/22/25 05:30 Alanine Aminotransferase (ALT) 31 U/L (7-40) Alkaline Phosphatase 106 U/L (46-116) Aspartate Amino Transferase (AST) 19 U/L (13-40) Total Bilirubin 1.0 mg/dL (0.2-1.0) Urinalysis Test 02/10/25 12:35 02/22/25 07:00 Urine Hyaline Casts Many /lpf (0 - 2) Urine Mucus Few (None Seen) Urine Color Light-yellow (Yellow) Urine Clarity Turbid (Clear) H Urine pH 8.5 (5.0-9.0) Urine Specific [place] 1.017 (1.001-1.035) Urine Protein Trace (Negative) H Urine Ketones Negative (Negative) Urine Blood 2+ /uL (Negative) H Urine Nitrite Negative (Negative) Urine Bilirubin Negative (Negative) Urine Urobilinogen Normal mg/dL (Negative) Urine Leukocyte Esterase Negative /uL (Negative) Urine RBC 160 /hpf (0 - 4) Urine Microscopic WBC 3 /HPF (0-5) Urine Squamous Epithelial Cells Few /hpf (<5) Urine Bacteria None seen /hpf (None Seen) Urine Glucose Normal mg/dL (Normal) Microbiology Microbiology Date/Time Source Procedure Growth Status 02/18/25 13:00 Urine - [place] Urine Culture - Preliminary Resulted 02/18/25 11:19 Nose MRSA Screen - Final Complete 02/13/25 19:00 Blood Blood Culture - Final NO GROWTH AFTER 5 DAYS OF INCUBATION. Complete Assessment/Plan Assessment/Plan Acute hypoxic respiratory failure COPD exacerbation Acute metabolic encephalopathy, resolved Hypoxemia, Possible lung mass, Transaminitis, Dehydration, Malnutrition, Atrial fibrillation, on Eliquis COPD, Neurofibromatosis sepsis with unclear source, suspected pna bacterial pneumonia colitis PLAN: Add steroids O2 prn Med Nebs IV antibiotics Eliquis Lasix Discussed with at the bedside 02/18/2025: Hypoxia with hypercapnia: Start high-flow oxygen Transferred to the [facility] Continue steroids Continue IV antibiotics ceftriaxone and vancomycin Lasix [place] catheter Midline Eliquis Discuss the plan of care with the patient and at the bedside Full code Monitor closely 02/19/2025: Sepsis: Switch Rocephin to meropenem Continue vancomycin Continue steroids Replace electrolytes as needed Eliquis Discussed with the at the bedside Full code except CPR 02/20/2025: Acute on chronic hypoxic and hypercapnic respiratory failure Pneumonia COPD Sepsis Atrial fibrillation Neurofibromatosis Meropenem and vancomycin High-flow oxygen, keep saturation between 88 and 90 IV steroids Eliquis Stopped Xanax Give Ativan p.r.n. IV 02/21/2025: Continue the current management with IV antibiotics and IV steroids Oxygen as needed Tapered down the oxygen to keep saturation 88-90 Monitor closely Discussed with the and daughter at the bedside 02/22/2025: Downgrade to telemetry Tapered down the oxygen as tolerated Physical therapy evaluation Meropenem Doxycycline Solu-Medrol Med neb treatments Lasix Eliquis Physical therapy Discharge planning for tomorrow Plan discussed with: Patient My Orders Orders - KRISTINA GARCIA MD Procedure Category Date Status Time Chest Portable XY 02/21/25 Resulted 10:24 Meropenem 1gm Ivpb PHA 02/22/25 In Process (Merrem 1gm/50ml) 02:00 Chest Portable XY 02/22/25 Logged 04:00 Urine Bacterial DARCIE 02/22/25 In Process Culture 07:08 Doxycycline PHA 02/22/25 In Process 100mg/100ml 16:00 Transfer Orders XFER 02/22/25 Transmitted 09:06 Date of Service: Feb 22, 2025 Billing Provider: KRISTINA GARCIA MD Common Visit Codes: [id number] INP/OBS CARE(HIGH) KRISTINA GARCIA MD Feb 22, 2025 09:10
[2025-02-22] MEDS: FUROSEMIDE 40 MG/4 ML VIAL IV SCH (10:20)
--- NOTE | 2025-02-22 10:52 | DVH ---
EXAM: XY CHEST PORTABLE Indication: SOB Technique: Single frontal view of the chest was obtained Comparison: XY CHEST PORTABLE on DOS: 02/21/25, XY CHEST PORTABLE on DOS: 02/20/25, XY CHEST XRAY 1 VIEW on DOS: 02/19/25, CT CHEST WITH CONTRAST on DOS: 02/10/25, XY CHEST XRAY 1 VIEW on DOS: 02/10/25 FINDINGS: Lines and Tubes: None Lungs: Small right pleural effusion and multifocal consolidative opacities. No pneumothorax. Cardiomediastinal contours: Cardiomegaly Bones: No acute osseous abnormality. IMPRESSION: Cardiomegaly with small right pleural effusion and multifocal consolidative opacities.
[2025-02-22] MEDS: risperiDONE 1 MG TAB PO SCH (16:50)
--- NOTE | 2025-02-22 17:04 | DVHPN2 ---
Progress Note - Dictate Date Seen: Feb 22, 2025 Medical Necessity Reason Pt with a Central, PICC or Fol: No vital signs Vital Sign Date Time Temp Pulse Resp B/P (MAP) Pulse Ox O2 Delivery O2 Flow Rate FiO2 02/22/25 16:03 99.1 99 13 108/62 (77) 94 99.1 02/22/25 16:00 Nasal Cannula* 4 36 Total Intake and Output 02/21/25 02/21/25 02/22/25 15:00 23:00 07:00 Intake Total 120 ml 540 ml 150 ml Output Total 2100 ml 775 ml Balance 120 ml -1560 ml -625 ml medications Current Medications Medications Dose Ordered Sig/Nicolas Route Start Time Stop Time Status Last Admin Dose Admin Ondansetron HCl 4 mg Q4HP PRN IV 02/10/25 17:00 02/20/25 08:49 4 MG Docusate Sodium 100 mg BIDPRN PRN PO 02/10/25 17:00 02/20/25 15:33 100 MG Acetaminophen 650 mg Q6HP PRN PO 02/10/25 17:00 Hold Ipratropium [place] 0.5 mg Q4HPRN PRN NEB 02/10/25 17:30 02/17/25 08:03 0.5 MG Albuterol 2.5 mg Q4HPRN PRN NEB 02/10/25 17:30 02/17/25 08:03 2.5 MG Apixaban 5 mg BID PO 02/10/25 22:00 02/22/25 10:20 5 MG Calcium Carbonate 500 mg QIDPRN PRN PO 02/11/25 12:00 02/13/25 11:04 500 MG Methylprednisolone Sodium Succinate 40 mg BID IV 02/17/25 22:00 02/22/25 10:20 40 MG Albuterol 2.5 mg Q6HR NEB 02/17/25 18:00 02/22/25 13:13 2.5 MG Ipratropium [place] 0.5 mg Q6HR NEB 02/17/25 18:00 02/22/25 13:12 0.5 MG Lorazepam 0.5 mg Q6HP PRN IV 02/20/25 12:45 02/22/25 13:47 0.5 MG Artificial Tears 1 drop Q6HP PRN EACHEYE 02/20/25 15:00 Meropenem 50 ml @ 17 mls/hr Q12H IV 02/22/25 02:00 02/22/25 14:15 17 MLS/HR Furosemide 40 mg DAILY IV 02/22/25 10:00 02/22/25 10:20 40 MG Doxycycline Hyclate 100 ml @ 50 mls/hr Q12H IV 02/22/25 18:00 Risperidone 1 mg BID PO 02/22/25 14:45 laboratory and microbiology Laboratory Tests 02/22/25 05:30 Test 02/22/25 05:30 Range/Units Serum Glucose 131 H 74-106 mg/dL Assessment/Plan Hypoxemic respiratory failure acute on chronic Pneumonia Pulmonary congestion COPD Cor pulmonale/pulmonary hypertension Chronic dependency on oxygen pl effusions -small Patient seen and examined Events better on nasal 02 No distress still confused CT chest reviewed Significant cardiomegaly, especially the right atrium and right ventricle. Pulmonary arterial enlargement, suggestive of pulmonary arterial hypertension. Trace bilateral pleural effusions, [id number]. Bilateral lower lobe subsegmental dependent atelectasis, [id number]-left. No pneumothorax. Enlarged, heterogeneous multinodular thyroid. Nonemergent thyroid ultrasound is recommended. Management plan Supplemental O2 as needed Maintain O2 sats above 90% nebs bronchodilators Rocephin/abx Continue steroids Diurese with Lasix Monitor renal function Replace electrolytes keep potassium above 4 Supportive care Nutrition GI and DVT prophylaxis Otherwise management per primary team Dietary Evaluation Review Comments: Nutrition Recommendation: 1) Ensure High Protein 240ml TID 2) Monitor PO intake, lab values, weight trend, and I/O Expected Outcomes/Goals: Intake to meet >75% estimated needs FU 3-5 days Plan discussed with: Patient CARMELITA GARLAND MD Feb 22, 2025 17:04
[2025-02-22] MEDS ORDERED: DOXYCYCLINE 100MG/100ML 100 ML IV SCH (18:00)
[2025-02-22] MEDS: DOXYCYCLINE 100MG/100ML 100 ML IV SCH (21:09)
[2025-02-23] VITALS (12 sets, daily range): BP systolic 97–124; BP diastolic 58–75; PULSE 80–108; RESP 16–20; TEMP 97.7–98.6; O2SAT 90–98
--- NOTE | 2025-02-23 11:35 | DVHPN2 ---
Subjective Doing well 4 L nasal cannula Family at the bedside says she is still confused She is very weak Reviewed: Care Plan, H&P, Labs, Medications, Previous Orders, Radiology Changes from previous H/P or p: Changes General: Per HPI Eyes: No Pain, No Vision change, No Conjunctivae inflammation, No Eyelid inflammation, No Other, No Redness ENT: No Ear pain, No Ear discharge, No Nose pain, No Nose discharge, No Nose congestion, No Mouth pain, No Mouth swelling, No Throat pain, No Throat swelling, No Other Cardiovascular: No Chest Pain, No Palpitations, No Orthopnea, No Paroxysmal Noc. Dyspnea, No Edema, No Lt Headedness, No Other Respiratory: No Cough, No Dry; Shortness of breath; No SOB with excertion, No Wheezing, No Hemoptysis, No Pleuritic Pain, No Sputum, No Other Gastrointestinal: No Nausea, No Vomiting, No Abdominal Pain, No Diarrhea, No Constipation, No Melena, No Hematochezia, No Other Genitourinary: No Dysuria, No Frequency, No Incontinence, No Hematuria, No Retention, No Other Musculoskeletal: No other, No neck pain, No shoulder pain, No arm pain, No back pain, No hand pain, No leg pain, No foot pain Skin: No Rash, No Lesions, No Jaundice, No Bruising, No Other Objective Vitals Vital Signs Date Time Temp Pulse Resp B/P (MAP) Pulse Ox O2 Delivery O2 Flow Rate FiO2 02/23/25 09:38 104/75 02/23/25 05:00 97.7 90 17 92 97.7 02/22/25 21:11 36.0 02/22/25 20:00 Nasal Cannula* 28 Intake/Output Intake and Output 02/23/25 07:00 Intake Total 1648 ml Output Total 2650 ml Balance -1002 ml Intake Oral 1498 ml IV Total 150 ml Output Urine Total 2650 ml # Bowel Movements 10 General Appearance: Alert, Oriented X3, moderate distress Lungs: Clear to auscultation Cardiovascular: Regular rate, Normal S1, Normal S2 Abdomen: Normal bowel sounds, Soft, No tenderness Extremities: No edema Medications Current Medications Medications Dose Ordered Sig/Nicolas Route Start Time Stop Time Status Last Admin Dose Admin Ondansetron HCl 4 mg Q4HP PRN IV 02/10/25 17:00 02/20/25 08:49 4 MG Docusate Sodium 100 mg BIDPRN PRN PO 02/10/25 17:00 02/20/25 15:33 100 MG Acetaminophen 650 mg Q6HP PRN PO 02/10/25 17:00 Hold Ipratropium [place] 0.5 mg Q4HPRN PRN NEB 02/10/25 17:30 02/17/25 08:03 0.5 MG Albuterol 2.5 mg Q4HPRN PRN NEB 02/10/25 17:30 02/17/25 08:03 2.5 MG Apixaban 5 mg BID PO 02/10/25 22:00 02/23/25 09:38 5 MG Calcium Carbonate 500 mg QIDPRN PRN PO 02/11/25 12:00 02/13/25 11:04 500 MG Methylprednisolone Sodium Succinate 40 mg BID IV 02/17/25 22:00 02/23/25 09:38 40 MG Albuterol 2.5 mg Q6HR NEB 02/17/25 18:00 02/23/25 00:21 2.5 MG Ipratropium [place] 0.5 mg Q6HR NEB 02/17/25 18:00 02/23/25 00:21 0.5 MG Lorazepam 0.5 mg Q6HP PRN IV 02/20/25 12:45 02/23/25 03:36 0.5 MG Artificial Tears 1 drop Q6HP PRN EACHEYE 02/20/25 15:00 Meropenem 50 ml @ 17 mls/hr Q12H IV 02/22/25 02:00 02/23/25 01:51 17 MLS/HR Furosemide 40 mg DAILY IV 02/22/25 10:00 02/23/25 09:38 40 MG Risperidone 1 mg BID PO 02/22/25 14:45 02/23/25 09:38 1 MG Doxycycline Hyclate 100 ml @ 50 mls/hr Q12HR@0800,2000 IV 02/22/25 20:00 02/23/25 09:37 50 MLS/HR Laboratory Results Laboratory Tests 02/22/25 05:30 Urinalysis Test 02/10/25 12:35 02/22/25 07:00 Urine Hyaline Casts Many /lpf (0 - 2) Urine Mucus Few (None Seen) Urine Color Light-yellow (Yellow) Urine Clarity Turbid (Clear) H Urine pH 8.5 (5.0-9.0) Urine Specific [place] 1.017 (1.001-1.035) Urine Protein Trace (Negative) H Urine Ketones Negative (Negative) Urine Blood 2+ /uL (Negative) H Urine Nitrite Negative (Negative) Urine Bilirubin Negative (Negative) Urine Urobilinogen Normal mg/dL (Negative) Urine Leukocyte Esterase Negative /uL (Negative) Urine RBC 160 /hpf (0 - 4) Urine Microscopic WBC 3 /HPF (0-5) Urine Squamous Epithelial Cells Few /hpf (<5) Urine Bacteria None seen /hpf (None Seen) Urine Glucose Normal mg/dL (Normal) Microbiology Microbiology Date/Time Source Procedure Growth Status 02/22/25 07:00 Urine - [place] Urine Culture - Preliminary No growth Resulted 02/18/25 11:19 Nose MRSA Screen - Final Complete 02/13/25 19:00 Blood Blood Culture - Final NO GROWTH AFTER 5 DAYS OF INCUBATION. Complete Assessment/Plan Assessment/Plan Acute hypoxic respiratory failure COPD exacerbation Acute metabolic encephalopathy, resolved Hypoxemia, Possible lung mass, Transaminitis, Dehydration, Malnutrition, Atrial fibrillation, on Eliquis COPD, Neurofibromatosis sepsis with unclear source, suspected pna bacterial pneumonia colitis PLAN: Add steroids O2 prn Med Nebs IV antibiotics Eliquis Lasix Discussed with at the bedside 02/18/2025: Hypoxia with hypercapnia: Start high-flow oxygen Transferred to the [facility] Continue steroids Continue IV antibiotics ceftriaxone and vancomycin Lasix [place] catheter Midline Eliquis Discuss the plan of care with the patient and at the bedside Full code Monitor closely 02/19/2025: Sepsis: Switch Rocephin to meropenem Continue vancomycin Continue steroids Replace electrolytes as needed Eliquis Discussed with the at the bedside Full code except CPR 02/20/2025: Acute on chronic hypoxic and hypercapnic respiratory failure Pneumonia COPD Sepsis Atrial fibrillation Neurofibromatosis Meropenem and vancomycin High-flow oxygen, keep saturation between 88 and 90 IV steroids Eliquis Stopped Xanax Give Ativan p.r.n. IV 02/21/2025: Continue the current management with IV antibiotics and IV steroids Oxygen as needed Tapered down the oxygen to keep saturation 88-90 Monitor closely Discussed with the and daughter at the bedside 02/22/2025: Downgrade to telemetry Tapered down the oxygen as tolerated Physical therapy evaluation Meropenem Doxycycline Solu-Medrol Med neb treatments Lasix Elistephanieis Physical therapy Discharge planning for tomorrow 02/23/2025: Continue physical therapy Arrange SNF for rehab Repeat chest x-ray Repeat CT scan of the head to rule out stroke Continue the current management with IV antibiotics and steroids Discharge planning to SNF Plan discussed with: Patient, Spouse, Daughter My Orders Orders - KRISTINA GARCIA MD Procedure Category Date Status Time Risperidone Tablet PHA 02/22/25 In Process (Risperdal Tablet) 14:45 Doxycycline PHA 02/22/25 In Process 100mg/100ml 20:[address] 02/23/25 Verified 11:32 Chest Xray 1 View XY 02/23/25 Verified 11:32 Date of Service: Feb 23, 2025 Billing Provider: KRISTINA GARCIA MD Common Visit Codes: [id number] INP/OBS CARE(HIGH) KRISTINA GARCIA MD Feb 23, 2025 11:35
--- NOTE | 2025-02-23 16:45 | DVH ---
COMPUTERIZED TOMOGRAPHY OF THE HEAD WITHOUT CONTRAST REASON FOR STUDY: Altered level of consciousness COMPARISON: CT HEAD WITHOUT CONTRAST on DOS: 02/10/25 TECHNIQUE: Helical tomographic scans were obtained through the brain. 2-D coronal and sagittal reformatted images are provided. Radiation optimization: All CT scans at this facility use at least one of these dose optimization techniques: Automated exposure control mA and/or kV adjustment per patient size (includes targeted exams where dose is matched to clinical indication) or iterative reconstruction. RADIATION DOSE: CTDI: 60.29 mGy DLP: 1087.0 mGy-cm FINDINGS: Motion artifact severely degrades evaluation. No suspicious intracranial hyperdensity to suggest acute blood. 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 There is no mass effect nor midline shift. There is severe generalized volume loss with compensatory enlargement of the CSF spaces. There is no hydrocephalus. The suprasellar cistern is intact. There are scattered periventricular and deep white matter hypodensities that are most consistent with chronic microangiopathic changes. The calvarium is intact. The visualized mastoid air cells and paranasal sinuses are clear. IMPRESSION: Motion artifact severely degrades evaluation. No acute intracranial abnormality within the limitations of motion artifact. Severe generalized volume loss with chronic small vessel ischemic change.
--- NOTE | 2025-02-23 16:56 | DVH ---
CHEST RADIOGRAPH Indication: PNA Technique: Single frontal view of the chest was obtained Comparison: XY CHEST PORTABLE on DOS: 02/22/25, XY CHEST PORTABLE on DOS: 02/21/25, XY CHEST PORTABLE on DOS: 02/20/25 FINDINGS: Lines and Tubes: None Lungs: No focal consolidation. Pleura: No effusion. No pneumothorax. Cardiomediastinal contours: Unremarkable Bones: No acute osseous abnormality. IMPRESSION: 1. No improvement from the chest x-ray of 02/22/2025. 2. Persistent small right pleural effusion and multifocal consolidative opacities.
--- NOTE | 2025-02-23 17:34 | DVHPN2 ---
Progress Note - Dictate Date Seen: Feb 23, 2025 Medical Necessity Reason Pt with a Central, PICC or Fol: No vital signs Vital Sign Date Time Temp Pulse Resp B/P (MAP) Pulse Ox O2 Delivery O2 Flow Rate FiO2 02/23/25 13:00 98.6 108 17 124/66 (85) 90 98.6 02/23/25 11:53 Nasal Cannula* 3 32 Total Intake and Output 02/22/25 02/22/25 02/23/25 15:00 23:00 07:00 Intake Total 998 ml 650 ml Output Total 1650 ml 1000 ml Balance -652 ml -350 ml medications Current Medications Medications Dose Ordered Sig/Nicolas Route Start Time Stop Time Status Last Admin Dose Admin Ondansetron HCl 4 mg Q4HP PRN IV 02/10/25 17:00 02/20/25 08:49 4 MG Docusate Sodium 100 mg BIDPRN PRN PO 02/10/25 17:00 02/20/25 15:33 100 MG Acetaminophen 650 mg Q6HP PRN PO 02/10/25 17:00 Hold Ipratropium [place] 0.5 mg Q4HPRN PRN NEB 02/10/25 17:30 02/17/25 08:03 0.5 MG Albuterol 2.5 mg Q4HPRN PRN NEB 02/10/25 17:30 02/17/25 08:03 2.5 MG Apixaban 5 mg BID PO 02/10/25 22:00 02/23/25 09:38 5 MG Calcium Carbonate 500 mg QIDPRN PRN PO 02/11/25 12:00 02/13/25 11:04 500 MG Methylprednisolone Sodium Succinate 40 mg BID IV 02/17/25 22:00 02/23/25 09:38 40 MG Albuterol 2.5 mg Q6HR NEB 02/17/25 18:00 02/23/25 11:53 2.5 MG Ipratropium [place] 0.5 mg Q6HR NEB 02/17/25 18:00 02/23/25 11:53 0.5 MG Lorazepam 0.5 mg Q6HP PRN IV 02/20/25 12:45 02/23/25 15:33 0.5 MG Artificial Tears 1 drop Q6HP PRN EACHEYE 02/20/25 15:00 Meropenem 50 ml @ 17 mls/hr Q12H IV 02/22/25 02:00 02/23/25 13:23 17 MLS/HR Furosemide 40 mg DAILY IV 02/22/25 10:00 02/23/25 09:38 40 MG Risperidone 1 mg BID PO 02/22/25 14:45 02/23/25 09:38 1 MG Doxycycline Hyclate 100 ml @ 50 mls/hr Q12HR@0800,2000 IV 02/22/25 20:00 02/23/25 09:37 50 MLS/HR laboratory and microbiology Laboratory Tests 02/22/25 05:30 Test 02/22/25 05:30 Range/Units Serum Glucose 131 H 74-106 mg/dL Assessment/Plan Hypoxemic respiratory failure acute on chronic Pneumonia Pulmonary congestion COPD Cor pulmonale/pulmonary hypertension Chronic dependency on oxygen pl effusions -small Patient seen and examined Events Low oxygen requirements On 3 liters nasal cannula No acute events CT chest reviewed Significant cardiomegaly, especially the right atrium and right ventricle. Pulmonary arterial enlargement, suggestive of pulmonary arterial hypertension. Trace bilateral pleural effusions, [id number]-wcot-left. Bilateral lower lobe subsegmental dependent atelectasis, [id number]-qgqv-left. No pneumothorax. Enlarged, heterogeneous multinodular thyroid. Nonemergent thyroid ultrasound is recommended. Management plan Supplemental O2 as needed Maintain O2 sats above 90% nebs bronchodilators Rocephin/abx Continue steroids Diurese with Lasix Monitor renal function Replace electrolytes keep potassium above 4 Supportive care Nutrition GI and DVT prophylaxis Otherwise management per primary team Dietary Evaluation Review Comments: Nutrition Recommendation: 1) Ensure High Protein 240ml TID 2) Monitor PO intake, lab values, weight trend, and I/O Expected Outcomes/Goals: Intake to meet >75% estimated needs FU 3-5 days Plan discussed with: Patient CARMELITA GARLAND MD Feb 23, 2025 17:34
[2025-02-24] VITALS (15 sets, daily range): BP systolic 106–129; BP diastolic 61–84; PULSE 64–110; RESP 17–20; TEMP 97.6–98.7; O2SAT 92–100
--- NOTE | 2025-02-24 09:33 | DVHPN2 ---
Subjective More lethargic and confused Overnight yet to be given Ativan and now she is more lethargic CT scan of the head was negative for a stroke Chest x-ray with no Change Reviewed: Care Plan, H&P, Labs, Medications, Previous Orders, Radiology Changes from previous H/P or p: Changes General: Per HPI Eyes: No Pain, No Vision change, No Conjunctivae inflammation, No Eyelid inflammation, No Other, No Redness ENT: No Ear pain, No Ear discharge, No Nose pain, No Nose discharge, No Nose congestion, No Mouth pain, No Mouth swelling, No Throat pain, No Throat swelling, No Other Cardiovascular: No Chest Pain, No Palpitations, No Orthopnea, No Paroxysmal Noc. Dyspnea, No Edema, No Lt Headedness, No Other Respiratory: No Cough, No Dry; Shortness of breath; No SOB with excertion, No Wheezing, No Hemoptysis, No Pleuritic Pain, No Sputum, No Other Gastrointestinal: No Nausea, No Vomiting, No Abdominal Pain, No Diarrhea, No Constipation, No Melena, No Hematochezia, No Other Genitourinary: No Dysuria, No Frequency, No Incontinence, No Hematuria, No Retention, No Other Musculoskeletal: No other, No neck pain, No shoulder pain, No arm pain, No back pain, No hand pain, No leg pain, No foot pain Skin: No Rash, No Lesions, No Jaundice, No Bruising, No Other Objective Vitals Vital Signs Date Time Temp Pulse Resp B/P (MAP) Pulse Ox O2 Delivery O2 Flow Rate FiO2 02/24/25 08:23 104/64 02/24/25 06:20 72 18 96 02/24/25 06:20 Nasal Cannula* 3 32 02/24/25 05:00 98.0 98.0 Intake/Output Intake and Output 02/24/25 07:00 Intake Total 915 ml Output Total 2925 ml Balance -2009 ml Intake Oral 615 ml IV Total 300 ml Output Urine Total 2925 ml # Bowel Movements 7 General Appearance: Alert, Oriented X3, moderate distress Lungs: Clear to auscultation Cardiovascular: Regular rate, Normal S1, Normal S2 Abdomen: Normal bowel sounds, Soft, No tenderness Extremities: No edema Medications Current Medications Medications Dose Ordered Sig/Nicolas Route Start Time Stop Time Status Last Admin Dose Admin Ondansetron HCl 4 mg Q4HP PRN IV 02/10/25 17:00 02/20/25 08:49 4 MG Docusate Sodium 100 mg BIDPRN PRN PO 02/10/25 17:00 02/20/25 15:33 100 MG Acetaminophen 650 mg Q6HP PRN PO 02/10/25 17:00 Hold Ipratropium [place] 0.5 mg Q4HPRN PRN NEB 02/10/25 17:30 02/17/25 08:03 0.5 MG Albuterol 2.5 mg Q4HPRN PRN NEB 02/10/25 17:30 02/17/25 08:03 2.5 MG Apixaban 5 mg BID PO 02/10/25 22:00 02/23/25 23:41 5 MG Calcium Carbonate 500 mg QIDPRN PRN PO 02/11/25 12:00 02/13/25 11:04 500 MG Methylprednisolone Sodium Succinate 40 mg BID IV 02/17/25 22:00 02/24/25 08:21 40 MG Albuterol 2.5 mg Q6HR NEB 02/17/25 18:00 02/24/25 06:20 2.5 MG Ipratropium [place] 0.5 mg Q6HR NEB 02/17/25 18:00 02/24/25 06:20 0.5 MG Lorazepam 0.5 mg Q6HP PRN IV 02/20/25 12:45 02/24/25 01:11 0.5 MG Artificial Tears 1 drop Q6HP PRN EACHEYE 02/20/25 15:00 Meropenem 50 ml @ 17 mls/hr Q12H IV 02/22/25 02:00 02/24/25 02:25 17 MLS/HR Furosemide 40 mg DAILY IV 02/22/25 10:00 02/24/25 08:23 40 MG Risperidone 1 mg BID PO 02/22/25 14:45 02/23/25 23:41 1 MG Doxycycline Hyclate 100 ml @ 50 mls/hr Q12HR@0800,1999 IV 02/22/25 20:00 02/24/25 08:18 50 MLS/HR Laboratory Results Laboratory Tests 02/22/25 05:30 Urinalysis Test 02/10/25 12:35 02/22/25 07:00 Urine Hyaline Casts Many /lpf (0 - 2) Urine Mucus Few (None Seen) Urine Color Light-yellow (Yellow) Urine Clarity Turbid (Clear) H Urine pH 8.5 (5.0-9.0) Urine Specific [place] 1.017 (1.001-1.035) Urine Protein Trace (Negative) H Urine Ketones Negative (Negative) Urine Blood 2+ /uL (Negative) H Urine Nitrite Negative (Negative) Urine Bilirubin Negative (Negative) Urine Urobilinogen Normal mg/dL (Negative) Urine Leukocyte Esterase Negative /uL (Negative) Urine RBC 160 /hpf (0 - 4) Urine Microscopic WBC 3 /HPF (0-5) Urine Squamous Epithelial Cells Few /hpf (<5) Urine Bacteria None seen /hpf (None Seen) Urine Glucose Normal mg/dL (Normal) Microbiology Microbiology Date/Time Source Procedure Growth Status 02/22/25 07:00 Urine - [place] Urine Culture - Preliminary No growth Resulted 02/18/25 11:19 Nose MRSA Screen - Final Complete 02/13/25 19:00 Blood Blood Culture - Final NO GROWTH AFTER 5 DAYS OF INCUBATION. Complete Assessment/Plan Assessment/Plan Acute hypoxic respiratory failure COPD exacerbation Acute metabolic encephalopathy, resolved Hypoxemia, Possible lung mass, Transaminitis, Dehydration, Malnutrition, Atrial fibrillation, on Eliquis COPD, Neurofibromatosis sepsis with unclear source, suspected pna bacterial pneumonia colitis PLAN: Add steroids O2 prn Med Nebs IV antibiotics Eliquis Lasix Discussed with at the bedside 02/18/2025: Hypoxia with hypercapnia: Start high-flow oxygen Transferred to the [facility] Continue steroids Continue IV antibiotics ceftriaxone and vancomycin Lasix [place] catheter Midline Eliquis Discuss the plan of care with the patient and at the bedside Full code Monitor closely 02/19/2025: Sepsis: Switch Rocephin to meropenem Continue vancomycin Continue steroids Replace electrolytes as needed Eliquis Discussed with the at the bedside Full code except CPR 02/20/2025: Acute on chronic hypoxic and hypercapnic respiratory failure Pneumonia COPD Sepsis Atrial fibrillation Neurofibromatosis Meropenem and vancomycin High-flow oxygen, keep saturation between 88 and 90 IV steroids Eliquis Stopped Xanax Give Ativan p.r.n. IV 02/21/2025: Continue the current management with IV antibiotics and IV steroids Oxygen as needed Tapered down the oxygen to keep saturation 88-90 Monitor closely Discussed with the and daughter at the bedside 02/22/2025: Downgrade to telemetry Tapered down the oxygen as tolerated Physical therapy evaluation Meropenem Doxycycline Solu-Medrol Med neb treatments Lasix Eliquis Physical therapy Discharge planning for tomorrow 02/23/2025: Continue physical therapy Arrange SNF for rehab Repeat chest x-ray Repeat CT scan of the head to rule out stroke Continue the current management with IV antibiotics and steroids Discharge planning to SNF 02/24/2025: Metabolic encephalopathy Pneumonia COPD Acute on chronic hypoxic and hypercapnic respiratory failure Sepsis Continue meropenem and doxycycline Eliquis IV steroids, taper the dose Discontinue risperidone Discontinue Ativan Start Seroquel 25 mg at bedtime Monitor closely Plan discussed with: Patient My Orders Orders - KRISTINA GARCIA MD Procedure Category Date Status Time Head Without Contrast CT 02/23/25 Resulted 11:32 Chest Xray 1 View XY 02/23/25 Resulted 11:32 * Transliterator CONS 02/23/25 Transmitted Consult Quetiapine Fumarate PHA 02/24/25 Verified Tablet (Seroquel Tab 22:00 Date of Service: Feb 24, 2025 Billing Provider: KRISTINA GARCIA MD Common Visit Codes: [id number] INP/OBS CARE(HIGH) KRISTINA GARCIA MD Feb 24, 2025 09:33
[2025-02-24] MEDS: predniSONE 20 MG TAB PO SCH (10:00)
[2025-02-25] VITALS (19 sets, daily range): BP systolic 97–129; BP diastolic 56–64; PULSE 64–108; RESP 16–20; TEMP 97–98.5; O2SAT 94–100
--- NOTE | 2025-02-25 12:02 | DVHPN2 ---
Progress Note - Dictate Date Seen: Feb 25, 2025 Medical Necessity Reason Pt with a Central, PICC or Fol: No vital signs Vital Sign Date Time Temp Pulse Resp B/P (MAP) Pulse Ox O2 Delivery O2 Flow Rate FiO2 02/25/25 08:46 97/58 02/25/25 08:00 95 Nasal Cannula* 2 28 02/25/25 07:26 90 18 02/25/25 05:00 98.4 98.4 Total Intake and Output 02/24/25 02/24/25 02/25/25 15:00 23:00 07:00 Intake Total 100 ml 1086 ml 0 ml Output Total 3900 ml 300 ml Balance 100 ml -2814 ml -300 ml medications Current Medications Medications Dose Ordered Sig/Nicolas Route Start Time Stop Time Status Last Admin Dose Admin Ondansetron HCl 4 mg Q4HP PRN IV 02/10/25 17:00 02/20/25 08:49 4 MG Docusate Sodium 100 mg BIDPRN PRN PO 02/10/25 17:00 02/20/25 15:33 100 MG Acetaminophen 650 mg Q6HP PRN PO 02/10/25 17:00 Ipratropium [place] 0.5 mg Q4HPRN PRN NEB 02/10/25 17:30 02/17/25 08:03 0.5 MG Albuterol 2.5 mg Q4HPRN PRN NEB 02/10/25 17:30 02/17/25 08:03 2.5 MG Apixaban 5 mg BID PO 02/10/25 22:00 02/25/25 08:45 5 MG Calcium Carbonate 500 mg QIDPRN PRN PO 02/11/25 12:00 02/13/25 11:04 500 MG Albuterol 2.5 mg Q6HR NEB 02/17/25 18:00 02/25/25 07:18 2.5 MG Ipratropium [place] 0.5 mg Q6HR NEB 02/17/25 18:00 02/25/25 07:18 0.5 MG Artificial Tears 1 drop Q6HP PRN EACHEYE 02/20/25 15:00 Meropenem 50 ml @ 17 mls/hr Q12H IV 02/22/25 02:00 02/25/25 02:02 17 MLS/HR Furosemide 40 mg DAILY IV 02/22/25 10:00 02/24/25 08:23 40 MG Doxycycline Hyclate 100 ml @ 50 mls/hr Q12HR@08 IV 02/22/25 20:00 02/25/25 08:45 50 MLS/HR Quetiapine Fumarate 25 mg HS PO 02/24/25 22:00 Prednisone 30 mg DAILY PO 02/24/25 10:00 laboratory and microbiology Laboratory Tests 02/22/25 05:30 Test 02/22/25 05:30 Range/Units Serum Glucose 131 H 74-106 mg/dL Assessment/Plan Hypoxemic respiratory failure acute on chronic Pneumonia Pulmonary congestion COPD Cor pulmonale/pulmonary hypertension Chronic dependency on oxygen pl effusions -small Patient seen and examined Events Low oxygen requirements On 3 liters nasal cannula No acute events CT chest reviewed Significant cardiomegaly, especially the right atrium and right ventricle. Pulmonary arterial enlargement, suggestive of pulmonary arterial hypertension. Trace bilateral pleural effusions, bjxeq-[id number]-left. Bilateral lower lobe subsegmental dependent atelectasis, ilsco-egmkuym-byjw-left. No pneumothorax. Enlarged, heterogeneous multinodular thyroid. Nonemergent thyroid ultrasound is recommended. Management plan Supplemental O2 as needed Maintain O2 sats above 90% nebs bronchodilators Rocephin/abx Continue steroids Diurese with Lasix Monitor renal function Replace electrolytes keep potassium above 4 Supportive care Nutrition GI and DVT prophylaxis Otherwise management per primary team Dietary Evaluation Review Comments: Nutrition Recommendation: 1) Ensure High Protein 240ml TID 2) Monitor PO intake, lab values, weight trend, and I/O Expected Outcomes/Goals: Intake to meet >75% estimated needs FU 3-5 days Plan discussed with: Patient CARMELITA GARLAND MD Feb 25, 2025 12:02
--- NOTE | 2025-02-25 13:11 | DVHPN2 ---
Subjective More alert and oriented today Very weak however She is not able to swallow since she was choking on food yesterday Reviewed: Care Plan, H&P, Labs, Medications, Previous Orders, Radiology Changes from previous H/P or p: Changes General: Per HPI Eyes: No Pain, No Vision change, No Conjunctivae inflammation, No Eyelid inflammation, No Other, No Redness ENT: No Ear pain, No Ear discharge, No Nose pain, No Nose discharge, No Nose congestion, No Mouth pain, No Mouth swelling, No Throat pain, No Throat swelling, No Other Cardiovascular: No Chest Pain, No Palpitations, No Orthopnea, No Paroxysmal Noc. Dyspnea, No Edema, No Lt Headedness, No Other Respiratory: No Cough, No Dry; Shortness of breath; No SOB with excertion, No Wheezing, No Hemoptysis, No Pleuritic Pain, No Sputum, No Other Gastrointestinal: No Nausea, No Vomiting, No Abdominal Pain, No Diarrhea, No Constipation, No Melena, No Hematochezia, No Other Genitourinary: No Dysuria, No Frequency, No Incontinence, No Hematuria, No Retention, No Other Musculoskeletal: No other, No neck pain, No shoulder pain, No arm pain, No back pain, No hand pain, No leg pain, No foot pain Skin: No Rash, No Lesions, No Jaundice, No Bruising, No Other Objective Vitals Vital Signs Date Time Temp Pulse Resp B/P (MAP) Pulse Ox O2 Delivery O2 Flow Rate FiO2 02/25/25 12:12 95 Nasal Cannula 2.0 02/25/25 12:12 100 18 02/25/25 12:12 28 02/25/25 08:46 97/58 02/25/25 05:00 98.4 98.4 Intake/Output Intake and Output 02/25/25 07:00 Intake Total 1186 ml Output Total 4200 ml Balance -3014 ml Intake Oral 836 ml IV Total 350 ml Output Urine Total 4200 ml General Appearance: Alert, Oriented X3, moderate distress Lungs: Clear to auscultation Cardiovascular: Regular rate, Normal S1, Normal S2 Abdomen: Normal bowel sounds, Soft, No tenderness Extremities: No edema Medications Current Medications Medications Dose Ordered Sig/Nicolas Route Start Time Stop Time Status Last Admin Dose Admin Ondansetron HCl 4 mg Q4HP PRN IV 02/10/25 17:00 02/20/25 08:49 4 MG Docusate Sodium 100 mg BIDPRN PRN PO 02/10/25 17:00 02/20/25 15:33 100 MG Acetaminophen 650 mg Q6HP PRN PO 02/10/25 17:00 Ipratropium [place] 0.5 mg Q4HPRN PRN NEB 02/10/25 17:30 02/17/25 08:03 0.5 MG Albuterol 2.5 mg Q4HPRN PRN NEB 02/10/25 17:30 02/17/25 08:03 2.5 MG Apixaban 5 mg BID PO 02/10/25 22:00 02/25/25 08:45 5 MG Calcium Carbonate 500 mg QIDPRN PRN PO 02/11/25 12:00 02/13/25 11:04 500 MG Albuterol 2.5 mg Q6HR NEB 02/17/25 18:00 02/25/25 12:12 2.5 MG Ipratropium [place] 0.5 mg Q6HR NEB 02/17/25 18:00 02/25/25 12:12 0.5 MG Artificial Tears 1 drop Q6HP PRN EACHEYE 02/20/25 15:00 Meropenem 50 ml @ 17 mls/hr Q12H IV 02/22/25 02:00 02/25/25 02:02 17 MLS/HR Furosemide 40 mg DAILY IV 02/22/25 10:00 02/24/25 08:23 40 MG Doxycycline Hyclate 100 ml @ 50 mls/hr Q12HR@0800,2000 IV 02/22/25 20:00 02/25/25 08:45 50 MLS/HR Quetiapine Fumarate 25 mg HS PO 02/24/25 22:00 Prednisone 30 mg DAILY PO 02/24/25 10:00 Laboratory Results Laboratory Tests 02/22/25 05:30 Urinalysis Test 02/10/25 12:35 02/22/25 07:00 Urine Hyaline Casts Many /lpf (0 - 2) Urine Mucus Few (None Seen) Urine Color Light-yellow (Yellow) Urine Clarity Turbid (Clear) H Urine pH 8.5 (5.0-9.0) Urine Specific [place] 1.017 (1.001-1.035) Urine Protein Trace (Negative) H Urine Ketones Negative (Negative) Urine Blood 2+ /uL (Negative) H Urine Nitrite Negative (Negative) Urine Bilirubin Negative (Negative) Urine Urobilinogen Normal mg/dL (Negative) Urine Leukocyte Esterase Negative /uL (Negative) Urine RBC 160 /hpf (0 - 4) Urine Microscopic WBC 3 /HPF (0-5) Urine Squamous Epithelial Cells Few /hpf (<5) Urine Bacteria None seen /hpf (None Seen) Urine Glucose Normal mg/dL (Normal) Microbiology Microbiology Date/Time Source Procedure Growth Status 02/22/25 07:00 Urine - [place] Urine Culture - Final Complete 02/18/25 11:19 Nose MRSA Screen - Final Complete 02/13/25 19:00 Blood Blood Culture - Final NO GROWTH AFTER 5 DAYS OF INCUBATION. Complete Assessment/Plan Assessment/Plan Acute hypoxic respiratory failure COPD exacerbation Acute metabolic encephalopathy, resolved Hypoxemia, Possible lung mass, Transaminitis, Dehydration, Malnutrition, Atrial fibrillation, on Eliquis COPD, Neurofibromatosis sepsis with unclear source, suspected pna bacterial pneumonia colitis PLAN: Add steroids O2 prn Med Nebs IV antibiotics Eliquis Lasix Discussed with at the bedside 02/18/2025: Hypoxia with hypercapnia: Start high-flow oxygen Transferred to the [facility] Continue steroids Continue IV antibiotics ceftriaxone and vancomycin Lasix [place] catheter Midline Eliquis Discuss the plan of care with the patient and at the bedside Full code Monitor closely 02/19/2025: Sepsis: Switch Rocephin to meropenem Continue vancomycin Continue steroids Replace electrolytes as needed Eliquis Discussed with the at the bedside Full code except CPR 02/20/2025: Acute on chronic hypoxic and hypercapnic respiratory failure Pneumonia COPD Sepsis Atrial fibrillation Neurofibromatosis Meropenem and vancomycin High-flow oxygen, keep saturation between 88 and 90 IV steroids Eliquis Stopped Xanax Give Ativan p.r.n. IV 02/21/2025: Continue the current management with IV antibiotics and IV steroids Oxygen as needed Tapered down the oxygen to keep saturation 88-90 Monitor closely Discussed with the and daughter at the bedside 02/22/2025: Downgrade to telemetry Tapered down the oxygen as tolerated Physical therapy evaluation Meropenem Doxycycline Solu-Medrol Med neb treatments Lasix Eliquis Physical therapy Discharge planning for tomorrow 02/23/2025: Continue physical therapy Arrange SNF for rehab Repeat chest x-ray Repeat CT scan of the head to rule out stroke Continue the current management with IV antibiotics and steroids Discharge planning to SNF 02/24/2025: Metabolic encephalopathy Pneumonia COPD Acute on chronic hypoxic and hypercapnic respiratory failure Sepsis Continue meropenem and doxycycline Eliquis IV steroids, taper the dose Discontinue risperidone Discontinue Ativan Start Seroquel 25 mg at bedtime Monitor closely 02/25/2025: Continue the current management Physical therapy Swallow eval Keep NPO Discussed with the family at the bedside Discharge planning after physical therapy evaluation Plan discussed with: Patient Date of Service: Feb 25, 2025 Billing Provider: KRISTINA GARCIA MD Common Visit Codes: [id number] INP/OBS CARE(HIGH) KRISTINA GARCIA MD Feb 25, 2025 13:11
[2025-02-25] MEDS ORDERED: ACETAMINOPHEN 650 mg PER 20.3 mL UD PO PRN (16:45)
[2025-02-25] MEDS: ACETAMINOPHEN 650 mg PER 20.3 mL UD PO PRN (21:41)
[2025-02-26] VITALS (14 sets, daily range): BP systolic 105–110; BP diastolic 6–72; PULSE 65–105; RESP 16–20; TEMP 97.1–97.4; O2SAT 91–99
[2025-02-26 07:06] LABS: Hemoglobin 11.0 g/dL (12.2-16.2)
[2025-02-26 07:08] LABS: Hematocrit 35.7 % (36.0-46.0); Mean Corpuscular Hemoglobin 20.4 pg (28.0-32.0); Mean Corpuscular Volume 66.2 fL (80.0-100.0)
[2025-02-26 07:27] LABS: Alanine Aminotransferase 26 U/L (7-40); Albumin 3.3 g/dL (3.2-4.8); Alkaline Phosphatase 94 U/L (46-116); Anion Gap 7 (5-15); BUN/Creatinine Ratio 74.5 (10.0-20.0); Blood Urea Nitrogen 38 mg/dL (9-23); Calcium 8.8 mg/dL (8.7-10.4); Carbon Dioxide 34 mmol/L (20-31); Chloride 104 mmol/L (98-107); Glucose 84 mg/dL (74-106); Magnesium 2.1 mg/dL (1.6-2.6); Potassium 3.8 mmol/L (3.5-5.1); Sodium 145 mmol/L (136-145); Total Protein 5.1 g/dL (5.7-8.2)
[2025-02-26 07:36] LABS: Bilirubin, Total 1.5 mg/dL (0.2-1.0)
[2025-02-26 08:01] LABS: Anisocytosis Moderate; Polychromasia Slight; Total Cells Counted 100.0 (100)
--- NOTE | 2025-02-26 12:03 | DVHDS2 ---
Discharge Summary Date of Admission Feb 10, 2025 at 16:58 Date of Discharge: Feb 26, 2025 Labs/Diagnostic Data: Laboratory Results Test 02/26/25 05:59 02/22/25 07:00 02/22/25 05:30 02/20/25 11:03 White Blood Count 18.8 10^3/uL (4.4-10.8) Red Blood Count 5.39 10^6/uL (4.0-5.20) Hemoglobin 11.0 g/dL (12.2-16.2) Hematocrit 35.7 % (36.0-46.0) Mean Corpuscular Volume 66.2 fL (80.0-100.0) Mean Corpuscular Hemoglobin 20.4 pg (28.0-32.0) Mean Corpuscular Hemoglobin Concent 30.8 g/dL (32.0-36.0) Red Cell Distribution Width 24.1 % (11.8-14.3) Platelet Count 146 10^3/uL (140-450) Mean Platelet Volume 8.9 fL (6.9-10.8) Neutrophils (%) (Auto) % (37.0-80.0) Lymphocytes (%) (Auto) % (10.0-50.0) Monocytes (%) (Auto) % (0.0-12.0) Basophils (%) (Auto) % (0.0-2.0) Neutrophils # (Auto) 10 ^3/uL (1.6-8.6) Lymphocytes # (Auto) 10 ^3/uL (0.4-5.4) Monocytes # (Auto) 10 ^3/uL (0-1.3) Differential Total Cells Counted 100.0 (100) Neutrophils % (Manual) 83 (37.0-80.0) Band Neutrophils % (Manual) 5 Lymphocytes % (Manual) 3 (10.0-50.0) Monocytes % (Manual) 9 (0-12) Eosinophils % (Manual) 0 (0-7) Basophils % (Manual) 0 (0.0-2.0) Metamyelocytes % (manual) 0 Myelocytes % (Manual) 0 Promyelocytes % (Manual) 0 Blast Cells % (Manual) 0 Reactive Lymphocytes 0 Platelet Estimate Adequate Polychromasia Slight Hypochromasia (manual) Moderate Poikilocytosis (manual) Slight Anisocytosis (manual) Moderate Microcytosis Marked Sodium Level 145 mmol/L (136-145) Potassium Level 3.8 mmol/L (3.5-5.1) Chloride Level 104 mmol/L (98-107) Carbon Dioxide Level 34 mmol/L (20-31) Anion Gap 7 (5-15) Blood Urea Nitrogen 38 mg/dL (9-23) Creatinine 0.51 mg/dL (0.550-1.02) Glomerular Filtration Rate Calc 97 mL/min (>90) BUN/Creatinine Ratio 74.5 (10.0-20.0) Serum Glucose 84 mg/dL (74-106) Calcium Level 8.8 mg/dL (8.7-10.4) Magnesium Level 2.1 mg/dL (1.6-2.6) Total Bilirubin 1.5 mg/dL (0.2-1.0) Aspartate Amino Transferase (AST) 19 U/L (13-40) Alanine Aminotransferase (ALT) 26 U/L (7-40) Alkaline Phosphatase 94 U/L (46-116) Total Protein 5.1 g/dL (5.7-8.2) Albumin 3.3 g/dL (3.2-4.8) Urine Color Light-yellow (Yellow) Urine Clarity Turbid (Clear) Urine pH 8.5 (5.0-9.0) Urine Specific [place] 1.017 (1.001-1.035) Urine Protein Trace (Negative) Urine Ketones Negative (Negative) Urine Blood 2+ /uL (Negative) Urine Nitrite Negative (Negative) Urine Bilirubin Negative (Negative) Urine Urobilinogen Normal mg/dL (Negative) Urine Leukocyte Esterase Negative /uL (Negative) Urine RBC 160 /hpf (0 - 4) Urine Microscopic WBC 3 /HPF (0-5) Urine Squamous Epithelial Cells Few /hpf (<5) Urine Bacteria None seen /hpf (None Seen) Urine Glucose Normal mg/dL (Normal) Eosinophils (%) (Auto) 0.0 % (0.0-7.0) Eosinophils # (Auto) 0 10 ^3/uL (0-0.8) Basophils # (Auto) 0 10 ^3/uL (0-0.2) Nucleated Red Blood Cells 0.1 % Vancomycin Level Trough 12.5 ug/mL (5-10) Blood Gas Specimen Type Arterial Blood Gas Sample Site Left radial Blood Gas Patient Temperature 37.0 Arterial Blood Date Drawn [id number] Arterial Blood pH 7.506 (7.350-7.450) Arterial Blood Partial Pressure CO2 53.6 mmHg (32.0-45.0) Arterial Blood Partial Pressure O2 55.3 mmHg (83.0-108.0) Arterial Blood HCO3 41.4 mmol/L (21.0-28.0) Arterial Blood Oxygen Saturation 87.2 % (94.0-98.0) Arterial Blood Base Excess 16.1 mmol/L (-2.0-3.0) Arterial Blood Oxyhemoglobin 85.6 % (94.0-98.0) Arterial Blood Carboxyhemoglobin 1.4 % (0.5-1.5) Arterial Blood Methemoglobin 0.4 % (0.0-1.5) Arterial Blood Deoxyhemoglobin 12.6 % (0.0-5.0) Daniel Test Yes Blood Gas Total Hemoglobin 11.20 g/dL (12.0-16.0) Blood Gas Liter Flow 40.00 Blood Gas Modality High flow FiO2 % 40.0 Test 02/20/25 06:05 02/18/25 09:30 02/13/25 15:52 02/11/25 05:28 Random Vancomycin Level 14.9 ug/mL (5-10) Blood Gas Critical Value Read Back Yes Blood Gas Notified Whom Dr. hernandez Blood Gas Notified Time [id number] Blood Gas Notified By Mati larios, deena Large Platelets Few Ovalocytes Few Stomatocytes Few Ryann Cells Few Test 02/10/25 12:39 02/10/25 12:35 Lactic Acid Level 1.8 mmol/L (0.4-2.0) Urine Hyaline Casts Many /lpf (0 - 2) Urine Mucus Few (None Seen) Urine Opiates Screen Neg (NEGATIVE) Urine Fentanyl Screen Neg (NEGATIVE) Urine Barbiturates Screen Neg (NEGATIVE) Urine Phencyclidine Screen Neg (NEGATIVE) Urine Amphetamines Screen Neg (NEGATIVE) Urine Benzodiazepines Screen Pos (NEGATIVE) Urine Cocaine Screen Neg (NEGATIVE) Urine Cannabinoids Screen Pos (NEGATIVE) Other Laboratory Tests 02/26/25 05:59 Brief Hx & Hospital Course: Final diagnoses: Acute hypoxic respiratory failure COPD exacerbation Acute metabolic encephalopathy, resolved Hypoxemia, Possible lung mass, Transaminitis, Dehydration, Malnutrition, Atrial fibrillation, on Eliquis COPD, Neurofibromatosis sepsis with unclear source, suspected pna bacterial pneumonia colitis She was hypoxic, required high flow o2 Steroids, antibiotics, O2, was given Full code Eventually improved She had dysphagia Now she is more alert Able to swallow pureed Very weak Needs rehab DC to SNF Condition at Discharge: Stable Final Diagnosis/Problems List Acute hypoxic respiratory failure COPD exacerbation Acute metabolic encephalopathy, resolved Hypoxemia, Possible lung mass, Transaminitis, Dehydration, Malnutrition, Atrial fibrillation, on Eliquis COPD, Neurofibromatosis sepsis with unclear source, suspected pna bacterial pneumonia colitis Discharge Disposition: Longterm Facility SNF Discharge Will this Physician continue t: No Discharge Instruct/Medications Diet: Cardiac 2g Na,low cholest Diet comment: Pureed Activity: No Restrictions, As Tolerated Follow Up/Referral: SNF MD Medications: See Med Rec Scheduled Apixaban Base (Eliquis), 1 TAB PO BID, (Reported) Carboxymethylcellulose-Glyceri (Lubricant Eye Drops/Dual- 0.5-0.9 %), 1 SARAY OP PRN, (Reported) Cephalexin (Keflex Capsule), 2 CAP PO BID Furosemide (Furosemide), 1 TAB PO QAM, (Reported) Zolpidem Tartrate (Zolpidem Tartrate), 1 TAB PO HS, (Reported) Discharge Statement: "Patient was advised to return to the ER or call 911 if any headaches, dizziness, shortness of breath, chest pain, abdominal pain, bleeding, fevers, or worsening of medical condition. Patient was counseled about treatment plan, medications, possible side effects, patientverbalized understanding. All questions were answered to the best of my ability. This discharge took greater then 30 minutes in planning, reviewing documentation, counseling the patient, and discussing with other team members." ASSESSMENT ASSESSMENT Assessment Acute hypoxic respiratory failure COPD exacerbation Acute metabolic encephalopathy, resolved Hypoxemia, Possible lung mass, Transaminitis, Dehydration, Malnutrition, Atrial fibrillation, on Eliquis COPD, Neurofibromatosis sepsis with unclear source, suspected pna bacterial pneumonia colitis Date of Service: Feb 26, 2025 Billing Provider: KRISTINA HERNANDEZ MD Common Visit Codes: [id number] DISCH DAY >30min KRISTINA HERNANDEZ MD Feb 26, 2025 12:03
--- NOTE | 2025-02-26 15:38 | DVHPN2 ---
Progress Note - Dictate Date Seen: Feb 26, 2025 Medical Necessity Reason Pt with a Central, PICC or Fol: No vital signs Vital Sign Date Time Temp Pulse Resp B/P (MAP) Pulse Ox O2 Delivery O2 Flow Rate FiO2 02/26/25 13:20 102 20 02/26/25 13:14 96 02/26/25 12:55 97.2 107/68 (81) 97.2 02/26/25 08:46 Nasal Cannula* 4 36 Total Intake and Output 02/25/25 02/25/25 02/26/25 15:00 23:00 07:00 Intake Total 150 ml 500 ml 50 ml Output Total 800 ml Balance 150 ml -300 ml 50 ml medications Current Medications Medications Dose Ordered Sig/Nicolas Route Start Time Stop Time Status Last Admin Dose Admin Ondansetron HCl 4 mg Q4HP PRN IV 02/10/25 17:00 02/20/25 08:49 4 MG Docusate Sodium 100 mg BIDPRN PRN PO 02/10/25 17:00 02/20/25 15:33 100 MG Acetaminophen 650 mg Q6HP PRN PO 02/10/25 17:00 Ipratropium [place] 0.5 mg Q4HPRN PRN NEB 02/10/25 17:30 02/17/25 08:03 0.5 MG Albuterol 2.5 mg Q4HPRN PRN NEB 02/10/25 17:30 02/17/25 08:03 2.5 MG Apixaban 5 mg BID PO 02/10/25 22:00 02/26/25 09:47 5 MG Calcium Carbonate 500 mg QIDPRN PRN PO 02/11/25 12:00 02/13/25 11:04 500 MG Albuterol 2.5 mg Q6HR NEB 02/17/25 18:00 02/26/25 13:14 2.5 MG Ipratropium [place] 0.5 mg Q6HR NEB 02/17/25 18:00 02/26/25 08:46 0.5 MG Artificial Tears 1 drop Q6HP PRN EACHEYE 02/20/25 15:00 Meropenem 50 ml @ 17 mls/hr Q12H IV 02/22/25 02:00 02/26/25 13:13 17 MLS/HR Furosemide 40 mg DAILY IV 02/22/25 10:00 02/24/25 08:23 40 MG Doxycycline Hyclate 100 ml @ 50 mls/hr Q12HR@0800,1999 IV 02/22/25 20:00 02/26/25 11:07 50 MLS/HR Quetiapine Fumarate 25 mg HS PO 02/24/25 22:00 02/25/25 21:35 25 MG Prednisone 30 mg DAILY PO 02/24/25 10:00 02/26/25 11:00 30 MG Acetaminophen 650 mg Q6HP PRN PO 02/25/25 17:15 02/25/25 21:41 650 MG laboratory and microbiology Laboratory Tests 02/26/25 05:59 Test 02/26/25 05:59 Range/Units Serum Glucose 84 74-106 mg/dL Assessment/Plan Hypoxemic respiratory failure acute on chronic Pneumonia Pulmonary congestion COPD Cor pulmonale/pulmonary hypertension Chronic dependency on oxygen pl effusions -small Patient seen and examined Events Low oxygen requirements On 3 liters nasal cannula No distress Labs and imaging reviewed Management plan Supplemental O2 as needed Maintain O2 sats above 90% nebs bronchodilators Rocephin/abx Continue steroids Diurese with Lasix Monitor renal function Replace electrolytes keep potassium above 4 Supportive care Nutrition GI and DVT prophylaxis Otherwise management per primary team Dietary Evaluation Review Comments: Nutrition Recommendation: 1) Ensure High Protein 240ml TID 2) Monitor PO intake, lab values, weight trend, and I/O Expected Outcomes/Goals: Intake to meet >75% estimated needs FU 3-5 days Plan discussed with: Patient CARMELITA GARLAND MD Feb 26, 2025 15:38
[2025-02-27] VITALS (14 sets, daily range): BP systolic 92–124; BP diastolic 61–77; PULSE 71–95; RESP 16–20; TEMP 95.7–97.7; O2SAT 93–100
--- NOTE | 2025-02-27 12:16 | DVHPN2 ---
Subjective More alert and oriented today Very weak however She is not able to swallow since she was choking on food yesterday She ambulated to the bathroom She is doing better Reviewed: Care Plan, H&P, Labs, Medications, Previous Orders, Radiology Changes from previous H/P or p: Changes General: Per HPI Eyes: No Pain, No Vision change, No Conjunctivae inflammation, No Eyelid inflammation, No Other, No Redness ENT: No Ear pain, No Ear discharge, No Nose pain, No Nose discharge, No Nose congestion, No Mouth pain, No Mouth swelling, No Throat pain, No Throat swelling, No Other Cardiovascular: No Chest Pain, No Palpitations, No Orthopnea, No Paroxysmal Noc. Dyspnea, No Edema, No Lt Headedness, No Other Respiratory: No Cough, No Dry; Shortness of breath; No SOB with excertion, No Wheezing, No Hemoptysis, No Pleuritic Pain, No Sputum, No Other Gastrointestinal: No Nausea, No Vomiting, No Abdominal Pain, No Diarrhea, No Constipation, No Melena, No Hematochezia, No Other Genitourinary: No Dysuria, No Frequency, No Incontinence, No Hematuria, No Retention, No Other Musculoskeletal: No other, No neck pain, No shoulder pain, No arm pain, No back pain, No hand pain, No leg pain, No foot pain Skin: No Rash, No Lesions, No Jaundice, No Bruising, No Other Objective Vitals Vital Signs Date Time Temp Pulse Resp B/P (MAP) Pulse Ox O2 Delivery O2 Flow Rate FiO2 02/27/25 12:01 86 18 100 02/27/25 11:56 Nasal Cannula* 3 32 02/27/25 10:00 97/60 02/27/25 09:05 95.7 95.7 Intake/Output Intake and Output 02/27/25 07:00 Intake Total 900 ml Output Total 1250 ml Balance -350 ml Intake Oral 750 ml IV Total 150 ml Output Urine Total 1250 ml # Bowel Movements 2 General Appearance: Alert, Oriented X3, moderate distress Lungs: Clear to auscultation Cardiovascular: Regular rate, Normal S1, Normal S2 Abdomen: Normal bowel sounds, Soft, No tenderness Extremities: No edema Medications Current Medications Medications Dose Ordered Sig/Nicolas Route Start Time Stop Time Status Last Admin Dose Admin Ondansetron HCl 4 mg Q4HP PRN IV 02/10/25 17:00 02/20/25 08:49 4 MG Docusate Sodium 100 mg BIDPRN PRN PO 02/10/25 17:00 02/20/25 15:33 100 MG Acetaminophen 650 mg Q6HP PRN PO 02/10/25 17:00 Ipratropium [place] 0.5 mg Q4HPRN PRN NEB 02/10/25 17:30 02/17/25 08:03 0.5 MG Albuterol 2.5 mg Q4HPRN PRN NEB 02/10/25 17:30 02/17/25 08:03 2.5 MG Apixaban 5 mg BID PO 02/10/25 22:00 02/27/25 08:13 5 MG Calcium Carbonate 500 mg QIDPRN PRN PO 02/11/25 12:00 02/13/25 11:04 500 MG Albuterol 2.5 mg Q6HR NEB 02/17/25 18:00 02/27/25 11:56 2.5 MG Ipratropium [place] 0.5 mg Q6HR NEB 02/17/25 18:00 02/27/25 11:56 0.5 MG Artificial Tears 1 drop Q6HP PRN EACHEYE 02/20/25 15:00 Meropenem 50 ml @ 17 mls/hr Q12H IV 02/22/25 02:00 02/27/25 01:46 17 MLS/HR Furosemide 40 mg DAILY IV 02/22/25 10:00 02/24/25 08:23 40 MG Doxycycline Hyclate 100 ml @ 50 mls/hr Q12HR@0800,2000 IV 02/22/25 20:00 02/27/25 08:10 50 MLS/HR Quetiapine Fumarate 25 mg HS PO 02/24/25 22:00 02/26/25 21:05 25 MG Prednisone 30 mg DAILY PO 02/24/25 10:00 02/27/25 08:13 30 MG Acetaminophen 650 mg Q6HP PRN PO 02/25/25 17:15 02/25/25 21:41 650 MG Laboratory Results Laboratory Tests 02/26/25 05:59 Urinalysis Test 02/10/25 12:35 02/22/25 07:00 Urine Hyaline Casts Many /lpf (0 - 2) Urine Mucus Few (None Seen) Urine Color Light-yellow (Yellow) Urine Clarity Turbid (Clear) H Urine pH 8.5 (5.0-9.0) Urine Specific [place] 1.017 (1.001-1.035) Urine Protein Trace (Negative) H Urine Ketones Negative (Negative) Urine Blood 2+ /uL (Negative) H Urine Nitrite Negative (Negative) Urine Bilirubin Negative (Negative) Urine Urobilinogen Normal mg/dL (Negative) Urine Leukocyte Esterase Negative /uL (Negative) Urine RBC 160 /hpf (0 - 4) Urine Microscopic WBC 3 /HPF (0-5) Urine Squamous Epithelial Cells Few /hpf (<5) Urine Bacteria None seen /hpf (None Seen) Urine Glucose Normal mg/dL (Normal) Microbiology Microbiology Date/Time Source Procedure Growth Status 02/22/25 07:00 Urine - [place] Urine Culture - Final Complete 02/18/25 11:19 Nose MRSA Screen - Final Complete 02/13/25 19:00 Blood Blood Culture - Final NO GROWTH AFTER 5 DAYS OF INCUBATION. Complete Assessment/Plan Assessment/Plan Acute hypoxic respiratory failure COPD exacerbation Acute metabolic encephalopathy, resolved Hypoxemia, Possible lung mass, Transaminitis, Dehydration, Malnutrition, Atrial fibrillation, on Eliquis COPD, Neurofibromatosis sepsis with unclear source, suspected pna bacterial pneumonia colitis PLAN: Add steroids O2 prn Med Nebs IV antibiotics Eliquis Lasix Discussed with at the bedside 02/18/2025: Hypoxia with hypercapnia: Start high-flow oxygen Transferred to the [facility] Continue steroids Continue IV antibiotics ceftriaxone and vancomycin Lasix [place] catheter Midline Eliquis Discuss the plan of care with the patient and at the bedside Full code Monitor closely 02/19/2025: Sepsis: Switch Rocephin to meropenem Continue vancomycin Continue steroids Replace electrolytes as needed Eliquis Discussed with the at the bedside Full code except CPR 02/20/2025: Acute on chronic hypoxic and hypercapnic respiratory failure Pneumonia COPD Sepsis Atrial fibrillation Neurofibromatosis Meropenem and vancomycin High-flow oxygen, keep saturation between 88 and 90 IV steroids Eliquis Stopped Xanax Give Ativan p.r.n. IV 02/21/2025: Continue the current management with IV antibiotics and IV steroids Oxygen as needed Tapered down the oxygen to keep saturation 88-90 Monitor closely Discussed with the and daughter at the bedside 02/22/2025: Downgrade to telemetry Tapered down the oxygen as tolerated Physical therapy evaluation Meropenem Doxycycline Solu-Medrol Med neb treatments Lasix Eliquis Physical therapy Discharge planning for tomorrow 02/23/2025: Continue physical therapy Arrange SNF for rehab Repeat chest x-ray Repeat CT scan of the head to rule out stroke Continue the current management with IV antibiotics and steroids Discharge planning to SNF 02/24/2025: Metabolic encephalopathy Pneumonia COPD Acute on chronic hypoxic and hypercapnic respiratory failure Sepsis Continue meropenem and doxycycline Eliquis IV steroids, taper the dose Discontinue risperidone Discontinue Ativan Start Seroquel 25 mg at bedtime Monitor closely 02/25/2025: Continue the current management Physical therapy Swallow eval Keep NPO Discussed with the family at the bedside Discharge planning after physical therapy evaluation 02/27/2025: Continue the current management Physical therapy Out of bed as tolerated Pureed diet Monitor closely Discharge to SNF once a bed is available Plan discussed with: Patient, Spouse Date of Service: Feb 27, 2025 Billing Provider: KRISTINA GARCIA MD Common Visit Codes: [id number] INP/OBS CARE(HIGH) KRISTINA GARCIA MD Feb 27, 2025 12:16
--- NOTE | 2025-02-27 12:21 | DVHPN2 ---
Progress Note - Dictate Date Seen: Feb 27, 2025 Medical Necessity Reason Pt with a Central, PICC or Fol: No vital signs Vital Sign Date Time Temp Pulse Resp B/P (MAP) Pulse Ox O2 Delivery O2 Flow Rate FiO2 02/27/25 12:01 86 18 100 02/27/25 11:56 Nasal Cannula* 3 32 02/27/25 10:00 97/60 02/27/25 09:05 95.7 95.7 Total Intake and Output 02/26/25 02/26/25 02/27/25 15:00 23:00 07:00 Intake Total 650 ml 250 ml Output Total 900 ml 350 ml Balance -250 ml -100 ml medications Current Medications Medications Dose Ordered Sig/Nicolas Route Start Time Stop Time Status Last Admin Dose Admin Ondansetron HCl 4 mg Q4HP PRN IV 02/10/25 17:00 02/20/25 08:49 4 MG Docusate Sodium 100 mg BIDPRN PRN PO 02/10/25 17:00 02/20/25 15:33 100 MG Acetaminophen 650 mg Q6HP PRN PO 02/10/25 17:00 Ipratropium [place] 0.5 mg Q4HPRN PRN NEB 02/10/25 17:30 02/17/25 08:03 0.5 MG Albuterol 2.5 mg Q4HPRN PRN NEB 02/10/25 17:30 02/17/25 08:03 2.5 MG Apixaban 5 mg BID PO 02/10/25 22:00 02/27/25 08:13 5 MG Calcium Carbonate 500 mg QIDPRN PRN PO 02/11/25 12:00 02/13/25 11:04 500 MG Albuterol 2.5 mg Q6HR NEB 02/17/25 18:00 02/27/25 11:56 2.5 MG Ipratropium [place] 0.5 mg Q6HR NEB 02/17/25 18:00 02/27/25 11:56 0.5 MG Artificial Tears 1 drop Q6HP PRN EACHEYE 02/20/25 15:00 Meropenem 50 ml @ 17 mls/hr Q12H IV 02/22/25 02:00 02/27/25 01:46 17 MLS/HR Furosemide 40 mg DAILY IV 02/22/25 10:00 02/24/25 08:23 40 MG Doxycycline Hyclate 100 ml @ 50 mls/hr Q12HR@0800,2000 IV 02/22/25 20:00 02/27/25 08:10 50 MLS/HR Quetiapine Fumarate 25 mg HS PO 02/24/25 22:00 02/26/25 21:05 25 MG Prednisone 30 mg DAILY PO 02/24/25 10:00 02/27/25 08:13 30 MG Acetaminophen 650 mg Q6HP PRN PO 02/25/25 17:15 02/25/25 21:41 650 MG laboratory and microbiology Laboratory Tests 02/26/25 05:59 Test 02/26/25 05:59 Range/Units Serum Glucose 84 74-106 mg/dL Assessment/Plan Hypoxemic respiratory failure acute on chronic Pneumonia Pulmonary congestion COPD Cor pulmonale/pulmonary hypertension Chronic dependency on oxygen pl effusions -small Patient seen and examined Events Low oxygen requirements On 3 liters nasal cannula No distress Labs and imaging reviewed Management plan Supplemental O2 as needed Maintain O2 sats above 90% nebs bronchodilators Rocephin/abx Continue steroids Diurese with Lasix Monitor renal function Replace electrolytes keep potassium above 4 Supportive care Nutrition GI and DVT prophylaxis Otherwise management per primary team Dietary Evaluation Review Comments: Nutrition Recommendation: 1) Ensure High Protein 240ml TID 2) Monitor PO intake, lab values, weight trend, and I/O Expected Outcomes/Goals: Intake to meet >75% estimated needs FU 3-5 days Plan discussed with: Patient CARMELITA GARLAND MD Feb 27, 2025 12:21
[2025-02-28] VITALS (15 sets, daily range): BP systolic 96–110; BP diastolic 64–76; PULSE 18–92; RESP 14–18; TEMP 97–98.7; O2SAT 91–100
--- NOTE | 2025-02-28 11:29 | DVHPN2 ---
Subjective No new problems More alert and oriented Generalized weakness On 2 L nasal cannula Reviewed: Care Plan, H&P, Labs, Medications, Previous Orders, Radiology Changes from previous H/P or p: Changes General: Per HPI Eyes: No Pain, No Vision change, No Conjunctivae inflammation, No Eyelid inflammation, No Other, No Redness ENT: No Ear pain, No Ear discharge, No Nose pain, No Nose discharge, No Nose congestion, No Mouth pain, No Mouth swelling, No Throat pain, No Throat swelling, No Other Cardiovascular: No Chest Pain, No Palpitations, No Orthopnea, No Paroxysmal Noc. Dyspnea, No Edema, No Lt Headedness, No Other Respiratory: No Cough, No Dry; Shortness of breath; No SOB with excertion, No Wheezing, No Hemoptysis, No Pleuritic Pain, No Sputum, No Other Gastrointestinal: No Nausea, No Vomiting, No Abdominal Pain, No Diarrhea, No Constipation, No Melena, No Hematochezia, No Other Genitourinary: No Dysuria, No Frequency, No Incontinence, No Hematuria, No Retention, No Other Musculoskeletal: No other, No neck pain, No shoulder pain, No arm pain, No back pain, No hand pain, No leg pain, No foot pain Skin: No Rash, No Lesions, No Jaundice, No Bruising, No Other Objective Vitals Vital Signs Date Time Temp Pulse Resp B/P (MAP) Pulse Ox O2 Delivery O2 Flow Rate FiO2 02/28/25 08:56 97.7 80 18 110/65 (80) 98 97.7 02/28/25 07:30 Nasal Cannula* 2 28 Intake/Output Intake and Output 02/28/25 07:00 Intake Total 980 ml Output Total 300 ml Balance 680 ml Intake Oral 730 ml IV Total 250 ml Output Urine Total 300 ml # Bowel Movements 1 General Appearance: Alert, Oriented X3, moderate distress Lungs: Clear to auscultation Cardiovascular: Regular rate, Normal S1, Normal S2 Abdomen: Normal bowel sounds, Soft, No tenderness Extremities: No edema Medications Current Medications Medications Dose Ordered Sig/Nicolas Route Start Time Stop Time Status Last Admin Dose Admin Ondansetron HCl 4 mg Q4HP PRN IV 02/10/25 17:00 02/20/25 08:49 4 MG Docusate Sodium 100 mg BIDPRN PRN PO 02/10/25 17:00 02/20/25 15:33 100 MG Acetaminophen 650 mg Q6HP PRN PO 02/10/25 17:00 Ipratropium [place] 0.5 mg Q4HPRN PRN NEB 02/10/25 17:30 02/17/25 08:03 0.5 MG Albuterol 2.5 mg Q4HPRN PRN NEB 02/10/25 17:30 02/17/25 08:03 2.5 MG Apixaban 5 mg BID PO 02/10/25 22:00 02/28/25 09:05 5 MG Calcium Carbonate 500 mg QIDPRN PRN PO 02/11/25 12:00 02/13/25 11:04 500 MG Albuterol 2.5 mg Q6HR NEB 02/17/25 18:00 02/28/25 05:48 2.5 MG Ipratropium [place] 0.5 mg Q6HR NEB 02/17/25 18:00 02/28/25 05:48 0.5 MG Artificial Tears 1 drop Q6HP PRN EACHEYE 02/20/25 15:00 Meropenem 50 ml @ 17 mls/hr Q12H IV 02/22/25 02:00 02/28/25 02:04 17 MLS/HR Furosemide 40 mg DAILY IV 02/22/25 10:00 02/24/25 08:23 40 MG Doxycycline Hyclate 100 ml @ 50 mls/hr Q12HR@0800,2000 IV 02/22/25 20:00 02/28/25 09:04 50 MLS/HR Quetiapine Fumarate 25 mg HS PO 02/24/25 22:00 02/27/25 21:35 25 MG Prednisone 30 mg DAILY PO 02/24/25 10:00 02/28/25 09:05 30 MG Acetaminophen 650 mg Q6HP PRN PO 02/25/25 17:15 02/27/25 21:36 650 MG Laboratory Results Laboratory Tests 02/26/25 05:59 Urinalysis Test 02/10/25 12:35 02/22/25 07:00 Urine Hyaline Casts Many /lpf (0 - 2) Urine Mucus Few (None Seen) Urine Color Light-yellow (Yellow) Urine Clarity Turbid (Clear) H Urine pH 8.5 (5.0-9.0) Urine Specific [place] 1.017 (1.001-1.035) Urine Protein Trace (Negative) H Urine Ketones Negative (Negative) Urine Blood 2+ /uL (Negative) H Urine Nitrite Negative (Negative) Urine Bilirubin Negative (Negative) Urine Urobilinogen Normal mg/dL (Negative) Urine Leukocyte Esterase Negative /uL (Negative) Urine RBC 160 /hpf (0 - 4) Urine Microscopic WBC 3 /HPF (0-5) Urine Squamous Epithelial Cells Few /hpf (<5) Urine Bacteria None seen /hpf (None Seen) Urine Glucose Normal mg/dL (Normal) Microbiology Microbiology Date/Time Source Procedure Growth Status 02/22/25 07:00 Urine - [place] Urine Culture - Final Complete 02/18/25 11:19 Nose MRSA Screen - Final Complete 02/13/25 19:00 Blood Blood Culture - Final NO GROWTH AFTER 5 DAYS OF INCUBATION. Complete Assessment/Plan Assessment/Plan Acute hypoxic respiratory failure COPD exacerbation Acute metabolic encephalopathy, resolved Hypoxemia, Possible lung mass, Transaminitis, Dehydration, Malnutrition, Atrial fibrillation, on Eliquis COPD, Neurofibromatosis sepsis with unclear source, suspected pna bacterial pneumonia colitis PLAN: Add steroids O2 prn Med Nebs IV antibiotics Eliquis Lasix Discussed with at the bedside 02/18/2025: Hypoxia with hypercapnia: Start high-flow oxygen Transferred to the [facility] Continue steroids Continue IV antibiotics ceftriaxone and vancomycin Lasix [place] catheter Midline Eliquis Discuss the plan of care with the patient and at the bedside Full code Monitor closely 02/19/2025: Sepsis: Switch Rocephin to meropenem Continue vancomycin Continue steroids Replace electrolytes as needed Eliquis Discussed with the at the bedside Full code except CPR 02/20/2025: Acute on chronic hypoxic and hypercapnic respiratory failure Pneumonia COPD Sepsis Atrial fibrillation Neurofibromatosis Meropenem and vancomycin High-flow oxygen, keep saturation between 88 and 90 IV steroids Eliquis Stopped Xanax Give Ativan p.r.n. IV 02/21/2025: Continue the current management with IV antibiotics and IV steroids Oxygen as needed Tapered down the oxygen to keep saturation 88-90 Monitor closely Discussed with the and daughter at the bedside 02/22/2025: Downgrade to telemetry Tapered down the oxygen as tolerated Physical therapy evaluation Meropenem Doxycycline Solu-Medrol Med neb treatments Lasix Eliquis Physical therapy Discharge planning for tomorrow 02/23/2025: Continue physical therapy Arrange SNF for rehab Repeat chest x-ray Repeat CT scan of the head to rule out stroke Continue the current management with IV antibiotics and steroids Discharge planning to SNF 02/24/2025: Metabolic encephalopathy Pneumonia COPD Acute on chronic hypoxic and hypercapnic respiratory failure Sepsis Continue meropenem and doxycycline Eliquis IV steroids, taper the dose Discontinue risperidone Discontinue Ativan Start Seroquel 25 mg at bedtime Monitor closely 02/25/2025: Continue the current management Physical therapy Swallow eval Keep NPO Discussed with the family at the bedside Discharge planning after physical therapy evaluation 02/27/2025: Continue the current management Physical therapy Out of bed as tolerated Pureed diet Monitor closely Discharge to SNF once a bed is available 02/28/2025: Continue current management Continue physical therapy Discharge to SNF as soon as a bed is available Plan discussed with: Patient Date of Service: Feb 28, 2025 Billing Provider: KRISTINA GARCIA MD Common Visit Codes: [id number] INP/OBS CARE(HIGH) KRISTINA GARCIA MD Feb 28, 2025 11:29
--- NOTE | 2025-02-28 15:22 | DVHPN2 ---
Progress Note - Dictate Date Seen: Feb 28, 2025 Medical Necessity Reason Pt with a Central, PICC or Fol: No vital signs Vital Sign Date Time Temp Pulse Resp B/P (MAP) Pulse Ox O2 Delivery O2 Flow Rate FiO2 02/28/25 12:35 77 18 99 02/28/25 12:23 98.7 96/68 (77) 98.7 02/28/25 07:30 Nasal Cannula* 2 28 Total Intake and Output 02/27/25 02/27/25 02/28/25 15:00 23:00 07:00 Intake Total 300 ml 630 ml 50 ml Output Total 300 ml Balance 300 ml 330 ml 50 ml medications Current Medications Medications Dose Ordered Sig/Nicolas Route Start Time Stop Time Status Last Admin Dose Admin Ondansetron HCl 4 mg Q4HP PRN IV 02/10/25 17:00 02/20/25 08:49 4 MG Docusate Sodium 100 mg BIDPRN PRN PO 02/10/25 17:00 02/20/25 15:33 100 MG Acetaminophen 650 mg Q6HP PRN PO 02/10/25 17:00 Ipratropium [place] 0.5 mg Q4HPRN PRN NEB 02/10/25 17:30 02/17/25 08:03 0.5 MG Albuterol 2.5 mg Q4HPRN PRN NEB 02/10/25 17:30 02/17/25 08:03 2.5 MG Apixaban 5 mg BID PO 02/10/25 22:00 02/28/25 09:05 5 MG Calcium Carbonate 500 mg QIDPRN PRN PO 02/11/25 12:00 02/13/25 11:04 500 MG Albuterol 2.5 mg Q6HR NEB 02/17/25 18:00 02/28/25 12:24 2.5 MG Ipratropium [place] 0.5 mg Q6HR NEB 02/17/25 18:00 02/28/25 12:24 0.5 MG Artificial Tears 1 drop Q6HP PRN EACHEYE 02/20/25 15:00 Quetiapine Fumarate 25 mg HS PO 02/24/25 22:00 02/27/25 21:35 25 MG Acetaminophen 650 mg Q6HP PRN PO 02/25/25 17:15 02/27/25 21:36 650 MG Doxycycline Monohydrate 100 mg Q12HR PO 02/28/25 22:00 Prednisone 10 mg DAILY PO 03/01/25 10:00 laboratory and microbiology Laboratory Tests 02/26/25 05:59 Test 02/26/25 05:59 Range/Units Serum Glucose 84 74-106 mg/dL Assessment/Plan Impression Hypoxemic respiratory failure acute on chronic Pneumonia Pulmonary congestion COPD Cor pulmonale/pulmonary hypertension Chronic dependency on oxygen pl effusions -small Patient seen and examined Events Low oxygen requirements On 3 liters nasal cannula No acute events Labs and imaging reviewed Management plan Supplemental O2 as needed Maintain O2 sats above 90% nebs bronchodilators Rocephin/abx Continue steroids Diurese with Lasix Monitor renal function Replace electrolytes keep potassium above 4 Supportive care Nutrition GI and DVT prophylaxis Otherwise management per primary team Dietary Evaluation Review Comments: Nutrition Recommendation: 1) Ensure High Protein 240ml TID 2) Monitor PO intake, lab values, weight trend, and I/O Expected Outcomes/Goals: Intake to meet >75% estimated needs FU 3-5 days Plan discussed with: Patient CARMELITA GARLAND MD Feb 28, 2025 15:22
[2025-02-28] MEDS: DOXYCYCLINE 100 MG TAB/CAP PO SCH (21:07)
[2025-03-01] VITALS (17 sets, daily range): BP systolic 98–112; BP diastolic 65–83; PULSE 71–98; RESP 14–20; TEMP 97.3–97.8; O2SAT 94–100
--- NOTE | 2025-03-01 09:49 | DVHDS2 ---
Discharge Summary Date of Admission Feb 10, 2025 at 16:58 Date of Discharge: Mar 01, 2025 Labs/Diagnostic Data: Laboratory Results Test 02/26/25 05:59 02/22/25 07:00 02/22/25 05:30 02/20/25 11:03 White Blood Count 18.8 10^3/uL (4.4-10.8) Red Blood Count 5.39 10^6/uL (4.0-5.20) Hemoglobin 11.0 g/dL (12.2-16.2) Hematocrit 35.7 % (36.0-46.0) Mean Corpuscular Volume 66.2 fL (80.0-100.0) Mean Corpuscular Hemoglobin 20.4 pg (28.0-32.0) Mean Corpuscular Hemoglobin Concent 30.8 g/dL (32.0-36.0) Red Cell Distribution Width 24.1 % (11.8-14.3) Platelet Count 146 10^3/uL (140-450) Mean Platelet Volume 8.9 fL (6.9-10.8) Neutrophils (%) (Auto) % (37.0-80.0) Lymphocytes (%) (Auto) % (10.0-50.0) Monocytes (%) (Auto) % (0.0-12.0) Basophils (%) (Auto) % (0.0-2.0) Neutrophils # (Auto) 10 ^3/uL (1.6-8.6) Lymphocytes # (Auto) 10 ^3/uL (0.4-5.4) Monocytes # (Auto) 10 ^3/uL (0-1.3) Differential Total Cells Counted 100.0 (100) Neutrophils % (Manual) 83 (37.0-80.0) Band Neutrophils % (Manual) 5 Lymphocytes % (Manual) 3 (10.0-50.0) Monocytes % (Manual) 9 (0-12) Eosinophils % (Manual) 0 (0-7) Basophils % (Manual) 0 (0.0-2.0) Metamyelocytes % (manual) 0 Myelocytes % (Manual) 0 Promyelocytes % (Manual) 0 Blast Cells % (Manual) 0 Reactive Lymphocytes 0 Platelet Estimate Adequate Polychromasia Slight Hypochromasia (manual) Moderate Poikilocytosis (manual) Slight Anisocytosis (manual) Moderate Microcytosis Marked Sodium Level 145 mmol/L (136-145) Potassium Level 3.8 mmol/L (3.5-5.1) Chloride Level 104 mmol/L (98-107) Carbon Dioxide Level 34 mmol/L (20-31) Anion Gap 7 (5-15) Blood Urea Nitrogen 38 mg/dL (9-23) Creatinine 0.51 mg/dL (0.550-1.02) Glomerular Filtration Rate Calc 97 mL/min (>90) BUN/Creatinine Ratio 74.5 (10.0-20.0) Serum Glucose 84 mg/dL (74-106) Calcium Level 8.8 mg/dL (8.7-10.4) Magnesium Level 2.1 mg/dL (1.6-2.6) Total Bilirubin 1.5 mg/dL (0.2-1.0) Aspartate Amino Transferase (AST) 19 U/L (13-40) Alanine Aminotransferase (ALT) 26 U/L (7-40) Alkaline Phosphatase 94 U/L (46-116) Total Protein 5.1 g/dL (5.7-8.2) Albumin 3.3 g/dL (3.2-4.8) Urine Color Light-yellow (Yellow) Urine Clarity Turbid (Clear) Urine pH 8.5 (5.0-9.0) Urine Specific [place] 1.017 (1.001-1.035) Urine Protein Trace (Negative) Urine Ketones Negative (Negative) Urine Blood 2+ /uL (Negative) Urine Nitrite Negative (Negative) Urine Bilirubin Negative (Negative) Urine Urobilinogen Normal mg/dL (Negative) Urine Leukocyte Esterase Negative /uL (Negative) Urine RBC 160 /hpf (0 - 4) Urine Microscopic WBC 3 /HPF (0-5) Urine Squamous Epithelial Cells Few /hpf (<5) Urine Bacteria None seen /hpf (None Seen) Urine Glucose Normal mg/dL (Normal) Eosinophils (%) (Auto) 0.0 % (0.0-7.0) Eosinophils # (Auto) 0 10 ^3/uL (0-0.8) Basophils # (Auto) 0 10 ^3/uL (0-0.2) Nucleated Red Blood Cells 0.1 % Vancomycin Level Trough 12.5 ug/mL (5-10) Blood Gas Specimen Type Arterial Blood Gas Sample Site Left radial Blood Gas Patient Temperature 37.0 Arterial Blood Date Drawn [id number] Arterial Blood pH 7.506 (7.350-7.450) Arterial Blood Partial Pressure CO2 53.6 mmHg (32.0-45.0) Arterial Blood Partial Pressure O2 55.3 mmHg (83.0-108.0) Arterial Blood HCO3 41.4 mmol/L (21.0-28.0) Arterial Blood Oxygen Saturation 87.2 % (94.0-98.0) Arterial Blood Base Excess 16.1 mmol/L (-2.0-3.0) Arterial Blood Oxyhemoglobin 85.6 % (94.0-98.0) Arterial Blood Carboxyhemoglobin 1.4 % (0.5-1.5) Arterial Blood Methemoglobin 0.4 % (0.0-1.5) Arterial Blood Deoxyhemoglobin 12.6 % (0.0-5.0) Daniel Test Yes Blood Gas Total Hemoglobin 11.20 g/dL (12.0-16.0) Blood Gas Liter Flow 40.00 Blood Gas Modality High flow FiO2 % 40.0 Test 02/20/25 06:05 02/18/25 09:30 02/13/25 15:52 02/11/25 05:28 Random Vancomycin Level 14.9 ug/mL (5-10) Blood Gas Critical Value Read Back Yes Blood Gas Notified Whom Dr. hernandez Blood Gas Notified Time [id number] Blood Gas Notified By Mati larios, deena Large Platelets Few Ovalocytes Few Stomatocytes Few [place] Cells Few Test 02/10/25 12:39 02/10/25 12:35 Lactic Acid Level 1.8 mmol/L (0.4-2.0) Urine Hyaline Casts Many /lpf (0 - 2) Urine Mucus Few (None Seen) Urine Opiates Screen Neg (NEGATIVE) Urine Fentanyl Screen Neg (NEGATIVE) Urine Barbiturates Screen Neg (NEGATIVE) Urine Phencyclidine Screen Neg (NEGATIVE) Urine Amphetamines Screen Neg (NEGATIVE) Urine Benzodiazepines Screen Pos (NEGATIVE) Urine Cocaine Screen Neg (NEGATIVE) Urine Cannabinoids Screen Pos (NEGATIVE) Other Laboratory Tests 02/26/25 05:59 Brief Hx & Hospital Course: FINAL DIAGNOSES: Acute hypoxic respiratory failure COPD exacerbation Acute metabolic encephalopathy, resolved Hypoxemia, Possible lung mass, Transaminitis, Dehydration, Malnutrition, Atrial fibrillation, on Eliquis COPD, Neurofibromatosis sepsis with unclear source, suspected pna bacterial pneumonia colitis THE PATIENT IS DOING WELL SHE IS AMBULATING WITH THE ASSISTANCE NOW SHE IS ON 2 L NASAL CANNULA DISCONTINUE FRANCO CATHETER TODAY DISCHARGE TO SNF ONCE A BED IS AVAILABLE ON [address] Condition at Discharge: Stable Final Diagnosis/Problems List Acute hypoxic respiratory failure COPD exacerbation Acute metabolic encephalopathy, resolved Hypoxemia, Possible lung mass, Transaminitis, Dehydration, Malnutrition, Atrial fibrillation, on Eliquis COPD, Neurofibromatosis sepsis with unclear source, suspected pna bacterial pneumonia colitis Discharge Disposition: Longterm Facility SNF Discharge Will this Physician continue t: No Discharge Instruct/Medications Diet: Cardiac 2g Na,low cholest Diet comment: Pureed Activity: No Restrictions, As Tolerated Follow Up/Referral: SNF MD Medications: See Med Rec Scheduled Apixaban Base (Eliquis), 1 TAB PO BID, (Reported) Carboxymethylcellulose-Glyceri (Lubricant Eye Drops/Dual- 0.5-0.9 %), 1 SARAY OP PRN, (Reported) Cephalexin (Keflex Capsule), 2 CAP PO BID Furosemide (Furosemide), 1 TAB PO QAM, (Reported) Zolpidem Tartrate (Zolpidem Tartrate), 1 TAB PO HS, (Reported) Discharge Statement: "Patient was advised to return to the ER or call 911 if any headaches, dizziness, shortness of breath, chest pain, abdominal pain, bleeding, fevers, or worsening of medical condition. Patient was counseled about treatment plan, medications, possible side effects, patientverbalized understanding. All questions were answered to the best of my ability. This discharge took greater then 30 minutes in planning, reviewing documentation, counseling the patient, and discussing with other team members." ASSESSMENT ASSESSMENT Assessment Acute hypoxic respiratory failure COPD exacerbation Acute metabolic encephalopathy, resolved Hypoxemia, Possible lung mass, Transaminitis, Dehydration, Malnutrition, Atrial fibrillation, on Eliquis COPD, Neurofibromatosis sepsis with unclear source, suspected pna bacterial pneumonia colitis Date of Service: Mar 01, 2025 Billing Provider: KRISTINA HERNANDEZ MD Common Visit Codes: 16367-PZL/OBS DISCH DAY >30min KRISTINA HERNANDEZ MD Mar 01, 2025 09:49
--- NOTE | 2025-03-01 15:15 | DVHPN2 ---
Progress Note - Dictate Date Seen: Mar 01, 2025 Medical Necessity Reason Pt with a Central, PICC or Fol: No vital signs Vital Sign Date Time Temp Pulse Resp B/P (MAP) Pulse Ox O2 Delivery O2 Flow Rate FiO2 03/01/25 13:00 97.4 98 18 112/78 (89) 94 97.4 03/01/25 08:15 Nasal Cannula* 2 28 Total Intake and Output 02/28/25 02/28/25 03/01/25 15:00 23:00 07:00 Intake Total 340 ml 570 ml 210 ml Output Total 1100 ml 400 ml Balance 340 ml -530 ml -190 ml medications Current Medications Medications Dose Ordered Sig/Nicolas Route Start Time Stop Time Status Last Admin Dose Admin Ondansetron HCl 4 mg Q4HP PRN IV 02/10/25 17:00 02/20/25 08:49 4 MG Docusate Sodium 100 mg BIDPRN PRN PO 02/10/25 17:00 02/20/25 15:33 100 MG Acetaminophen 650 mg Q6HP PRN PO 02/10/25 17:00 Ipratropium [place] 0.5 mg Q4HPRN PRN NEB 02/10/25 17:30 02/17/25 08:03 0.5 MG Albuterol 2.5 mg Q4HPRN PRN NEB 02/10/25 17:30 02/17/25 08:03 2.5 MG Apixaban 5 mg BID PO 02/10/25 22:00 03/01/25 11:03 5 MG Calcium Carbonate 500 mg QIDPRN PRN PO 02/11/25 12:00 02/13/25 11:04 500 MG Albuterol 2.5 mg Q6HR NEB 02/17/25 18:00 03/01/25 11:29 2.5 MG Ipratropium [place] 0.5 mg Q6HR NEB 02/17/25 18:00 03/01/25 11:29 0.5 MG Artificial Tears 1 drop Q6HP PRN EACHEYE 02/20/25 15:00 Quetiapine Fumarate 25 mg HS PO 02/24/25 22:00 02/28/25 21:07 25 MG Acetaminophen 650 mg Q6HP PRN PO 02/25/25 17:15 02/27/25 21:36 650 MG Doxycycline Monohydrate 100 mg Q12HR PO 02/28/25 22:00 03/01/25 11:03 100 MG Prednisone 10 mg DAILY PO 03/01/25 10:00 03/01/25 11:04 10 MG laboratory and microbiology Laboratory Tests 02/26/25 05:59 Test 02/26/25 05:59 Range/Units Serum Glucose 84 74-106 mg/dL Assessment/Plan Impression Hypoxemic respiratory failure acute on chronic Pneumonia Pulmonary congestion COPD Cor pulmonale/pulmonary hypertension Chronic dependency on oxygen pl effusions -small Patient seen and examined Events Low oxygen requirements On 3 liters nasal cannula No distress Labs and imaging reviewed Management plan Supplemental O2 as needed Maintain O2 sats above 90% nebs bronchodilators Rocephin/abx Continue steroids Diurese with Lasix Monitor renal function Replace electrolytes keep potassium above 4 Supportive care Nutrition GI and DVT prophylaxis Otherwise management per primary team Dietary Evaluation Review Comments: Nutrition Recommendation: 1) Ensure High Protein 240ml TID 2) Monitor PO intake, lab values, weight trend, and I/O Expected Outcomes/Goals: Intake to meet >75% estimated needs FU 3-5 days Plan discussed with: Patient CARMELITA GARLAND MD Mar 01, 2025 15:15
[2025-03-01] MEDS: ACETAMINOPHEN 325 MG TAB PO PRN (23:24)
[2025-03-02] VITALS (16 sets, daily range): BP systolic 93–111; BP diastolic 57–64; PULSE 79–117; RESP 14–19; TEMP 97.4–97.8; O2SAT 2–100
--- NOTE | 2025-03-02 11:30 | DVHPN2 ---
Progress Note - Dictate Date Seen: Mar 02, 2025 Medical Necessity Reason Pt with a Central, PICC or Fol: No vital signs Vital Sign Date Time Temp Pulse Resp B/P (MAP) Pulse Ox O2 Delivery O2 Flow Rate FiO2 03/02/25 08:00 82 16 Nasal Cannula* 2 28 03/02/25 06:20 100 03/02/25 05:00 97.8 97/61 (73) 97.8 Total Intake and Output 03/01/25 03/01/25 03/02/25 15:00 23:00 07:00 Intake Total 320 ml 800 ml Output Total 350 ml 450 ml Balance -30 ml 350 ml medications Current Medications Medications Dose Ordered Sig/Nicolas Route Start Time Stop Time Status Last Admin Dose Admin Ondansetron HCl 4 mg Q4HP PRN IV 02/10/25 17:00 02/20/25 08:49 4 MG Docusate Sodium 100 mg BIDPRN PRN PO 02/10/25 17:00 02/20/25 15:33 100 MG Acetaminophen 650 mg Q6HP PRN PO 02/10/25 17:00 03/01/25 23:24 650 MG Ipratropium [place] 0.5 mg Q4HPRN PRN NEB 02/10/25 17:30 02/17/25 08:03 0.5 MG Albuterol 2.5 mg Q4HPRN PRN NEB 02/10/25 17:30 02/17/25 08:03 2.5 MG Apixaban 5 mg BID PO 02/10/25 22:00 03/02/25 09:06 5 MG Calcium Carbonate 500 mg QIDPRN PRN PO 02/11/25 12:00 02/13/25 11:04 500 MG Albuterol 2.5 mg Q6HR NEB 02/17/25 18:00 03/02/25 06:13 2.5 MG Ipratropium [place] 0.5 mg Q6HR NEB 02/17/25 18:00 03/02/25 06:13 0.5 MG Artificial Tears 1 drop Q6HP PRN EACHEYE 02/20/25 15:00 Quetiapine Fumarate 25 mg HS PO 02/24/25 22:00 03/01/25 21:31 25 MG Acetaminophen 650 mg Q6HP PRN PO 02/25/25 17:15 02/27/25 21:36 650 MG Doxycycline Monohydrate 100 mg Q12HR PO 02/28/25 22:00 03/02/25 09:06 100 MG Prednisone 10 mg DAILY PO 03/01/25 10:00 03/02/25 09:06 10 MG laboratory and microbiology Laboratory Tests 02/26/25 05:59 Test 02/26/25 05:59 Range/Units Serum Glucose 84 74-106 mg/dL Assessment/Plan Impression Hypoxemic respiratory failure acute on chronic Pneumonia Pulmonary congestion COPD Cor pulmonale/pulmonary hypertension Chronic dependency on oxygen pl effusions -small Patient seen and examined Events Low oxygen requirements On 3 liters nasal cannula No acute events Labs and imaging reviewed Management plan Supplemental O2 as needed Maintain O2 sats above 90% nebs bronchodilators Rocephin/abx Continue steroids Diurese with Lasix Monitor renal function Replace electrolytes keep potassium above 4 Supportive care Nutrition GI and DVT prophylaxis Otherwise management per primary team Dietary Evaluation Review Comments: Nutrition Recommendation: 1) Ensure High Protein 240ml TID 2) Monitor PO intake, lab values, weight trend, and I/O Expected Outcomes/Goals: Intake to meet >75% estimated needs FU 3-5 days Plan discussed with: Patient CARMELITA GARLAND MD Mar 02, 2025 11:30
--- NOTE | 2025-03-02 14:25 | DVHPN2 ---
Subjective Doing well Much better She is still very weak however and still needs to go to SNF for rehab Reviewed: Care Plan, H&P, Labs, Medications, Previous Orders, Radiology Changes from previous H/P or p: Changes General: Per HPI Eyes: No Pain, No Vision change, No Conjunctivae inflammation, No Eyelid inflammation, No Other, No Redness ENT: No Ear pain, No Ear discharge, No Nose pain, No Nose discharge, No Nose congestion, No Mouth pain, No Mouth swelling, No Throat pain, No Throat swelling, No Other Cardiovascular: No Chest Pain, No Palpitations, No Orthopnea, No Paroxysmal Noc. Dyspnea, No Edema, No Lt Headedness, No Other Respiratory: No Cough, No Dry; Shortness of breath; No SOB with excertion, No Wheezing, No Hemoptysis, No Pleuritic Pain, No Sputum, No Other Gastrointestinal: No Nausea, No Vomiting, No Abdominal Pain, No Diarrhea, No Constipation, No Melena, No Hematochezia, No Other Genitourinary: No Dysuria, No Frequency, No Incontinence, No Hematuria, No Retention, No Other Musculoskeletal: No other, No neck pain, No shoulder pain, No arm pain, No back pain, No hand pain, No leg pain, No foot pain Skin: No Rash, No Lesions, No Jaundice, No Bruising, No Other Objective Vitals Vital Signs Date Time Temp Pulse Resp B/P (MAP) Pulse Ox O2 Delivery O2 Flow Rate FiO2 03/02/25 12:21 89 16 100 03/02/25 12:15 Nasal Cannula 2.0 03/02/25 12:15 28 03/02/25 05:00 97.8 97/61 (73) 97.8 Intake/Output Intake and Output 03/02/25 07:00 Intake Total 1120 ml Output Total 800 ml Balance 320 ml Intake Oral 1120 ml Output Urine Total 800 ml # Bowel Movements 2 General Appearance: Alert, Oriented X3, moderate distress Lungs: Clear to auscultation Cardiovascular: Regular rate, Normal S1, Normal S2 Abdomen: Normal bowel sounds, Soft, No tenderness Extremities: No edema Medications Current Medications Medications Dose Ordered Sig/Nicolas Route Start Time Stop Time Status Last Admin Dose Admin Ondansetron HCl 4 mg Q4HP PRN IV 02/10/25 17:00 02/20/25 08:49 4 MG Docusate Sodium 100 mg BIDPRN PRN PO 02/10/25 17:00 02/20/25 15:33 100 MG Acetaminophen 650 mg Q6HP PRN PO 02/10/25 17:00 03/01/25 23:24 650 MG Ipratropium [place] 0.5 mg Q4HPRN PRN NEB 02/10/25 17:30 02/17/25 08:03 0.5 MG Albuterol 2.5 mg Q4HPRN PRN NEB 02/10/25 17:30 02/17/25 08:03 2.5 MG Apixaban 5 mg BID PO 02/10/25 22:00 03/02/25 09:06 5 MG Calcium Carbonate 500 mg QIDPRN PRN PO 02/11/25 12:00 02/13/25 11:04 500 MG Albuterol 2.5 mg Q6HR NEB 02/17/25 18:00 03/02/25 12:15 2.5 MG Ipratropium [place] 0.5 mg Q6HR NEB 02/17/25 18:00 03/02/25 12:15 0.5 MG Artificial Tears 1 drop Q6HP PRN EACHEYE 02/20/25 15:00 Quetiapine Fumarate 25 mg HS PO 02/24/25 22:00 03/01/25 21:31 25 MG Acetaminophen 650 mg Q6HP PRN PO 02/25/25 17:15 02/27/25 21:36 650 MG Doxycycline Monohydrate 100 mg Q12HR PO 02/28/25 22:00 03/02/25 09:06 100 MG Prednisone 10 mg DAILY PO 03/01/25 10:00 03/02/25 09:06 10 MG Laboratory Results Laboratory Tests 02/26/25 05:59 Urinalysis Test 02/10/25 12:35 02/22/25 07:00 Urine Hyaline Casts Many /lpf (0 - 2) Urine Mucus Few (None Seen) Urine Color Light-yellow (Yellow) Urine Clarity Turbid (Clear) H Urine pH 8.5 (5.0-9.0) Urine Specific [place] 1.017 (1.001-1.035) Urine Protein Trace (Negative) H Urine Ketones Negative (Negative) Urine Blood 2+ /uL (Negative) H Urine Nitrite Negative (Negative) Urine Bilirubin Negative (Negative) Urine Urobilinogen Normal mg/dL (Negative) Urine Leukocyte Esterase Negative /uL (Negative) Urine RBC 160 /hpf (0 - 4) Urine Microscopic WBC 3 /HPF (0-5) Urine Squamous Epithelial Cells Few /hpf (<5) Urine Bacteria None seen /hpf (None Seen) Urine Glucose Normal mg/dL (Normal) Microbiology Microbiology Date/Time Source Procedure Growth Status 02/22/25 07:00 Urine - [place] Urine Culture - Final Complete 02/18/25 11:19 Nose MRSA Screen - Final Complete 02/13/25 19:00 Blood Blood Culture - Final NO GROWTH AFTER 5 DAYS OF INCUBATION. Complete Assessment/Plan Assessment/Plan Acute hypoxic respiratory failure COPD exacerbation Acute metabolic encephalopathy, resolved Hypoxemia, Possible lung mass, Transaminitis, Dehydration, Malnutrition, Atrial fibrillation, on Eliquis COPD, Neurofibromatosis sepsis with unclear source, suspected pna bacterial pneumonia colitis PLAN: Add steroids O2 prn Med Nebs IV antibiotics Eliquis Lasix Discussed with at the bedside 02/18/2025: Hypoxia with hypercapnia: Start high-flow oxygen Transferred to the [place] Continue steroids Continue IV antibiotics ceftriaxone and vancomycin Lasix [place] catheter Midline Eliquis Discuss the plan of care with the patient and at the bedside Full code Monitor closely 02/19/2025: Sepsis: Switch Rocephin to meropenem Continue vancomycin Continue steroids Replace electrolytes as needed Eliquis Discussed with the at the bedside Full code except CPR 02/20/2025: Acute on chronic hypoxic and hypercapnic respiratory failure Pneumonia COPD Sepsis Atrial fibrillation Neurofibromatosis Meropenem and vancomycin High-flow oxygen, keep saturation between 88 and 90 IV steroids Eliquis Stopped Xanax Give Ativan p.r.n. IV 02/21/2025: Continue the current management with IV antibiotics and IV steroids Oxygen as needed Tapered down the oxygen to keep saturation 88-90 Monitor closely Discussed with the and daughter at the bedside 02/22/2025: Downgrade to telemetry Tapered down the oxygen as tolerated Physical therapy evaluation Meropenem Doxycycline Solu-Medrol Med neb treatments Lasix Eliquis Physical therapy Discharge planning for tomorrow 02/23/2025: Continue physical therapy Arrange SNF for rehab Repeat chest x-ray Repeat CT scan of the head to rule out stroke Continue the current management with IV antibiotics and steroids Discharge planning to SNF 02/24/2025: Metabolic encephalopathy Pneumonia COPD Acute on chronic hypoxic and hypercapnic respiratory failure Sepsis Continue meropenem and doxycycline Eliquis IV steroids, taper the dose Discontinue risperidone Discontinue Ativan Start Seroquel 25 mg at bedtime Monitor closely 02/25/2025: Continue the current management Physical therapy Swallow eval Keep NPO Discussed with the family at the bedside Discharge planning after physical therapy evaluation 02/27/2025: Continue the current management Physical therapy Out of bed as tolerated Pureed diet Monitor closely Discharge to SNF once a bed is available 02/28/2025: Continue current management Continue physical therapy Discharge to SNF as soon as a bed is available 03/02/2025: Discharge to SNF once a bed is available Continue physical therapy while she is here Plan discussed with: Patient, Spouse, Daughter Date of Service: Mar 02, 2025 Billing Provider: KRISTINA GARCIA MD Common Visit Codes: [id number] INP/OBS CARE(MOD) KRISTINA GARCIA MD Mar 02, 2025 14:25
[2025-03-02] MEDS: ZOLPIDEM TARTRATE 5 MG TAB PO ONE (22:43)
[2025-03-03] VITALS (14 sets, daily range): BP systolic 105–122; BP diastolic 53–73; PULSE 80–102; RESP 3–20; TEMP 97.8–98.3; O2SAT 92–100
[2025-03-03 06:06] LABS: Nucleated Red Blood Cells % 0.1 %
[2025-03-03 06:08] LABS: Hematocrit 37.9 % (36.0-46.0); Hemoglobin 11.2 g/dL (12.2-16.2); Mean Corpuscular Hemoglobin 20.3 pg (28.0-32.0); Mean Corpuscular Volume 68.9 fL (80.0-100.0)
[2025-03-03 06:20] LABS: Anion Gap 9 (5-15); Carbon Dioxide 30 mmol/L (20-31); Chloride 105 mmol/L (98-107); Potassium 4.6 mmol/L (3.5-5.1); Sodium 144 mmol/L (136-145)
[2025-03-03 06:26] LABS: BUN/Creatinine Ratio 54.3 (10.0-20.0); Glucose 81 mg/dL (74-106); Magnesium 2.2 mg/dL (1.6-2.6)
[2025-03-03 06:28] LABS: Blood Urea Nitrogen 25 mg/dL (9-23); Calcium 8.4 mg/dL (8.7-10.4)
--- NOTE | 2025-03-03 10:24 | DVHPN2 ---
Subjective Doing Well No complaints Waiting on SNF bed for rehab Reviewed: Care Plan, H&P, Labs, Medications, Previous Orders, Radiology Changes from previous H/P or p: Changes General: Per HPI Eyes: No Pain, No Vision change, No Conjunctivae inflammation, No Eyelid inflammation, No Other, No Redness ENT: No Ear pain, No Ear discharge, No Nose pain, No Nose discharge, No Nose congestion, No Mouth pain, No Mouth swelling, No Throat pain, No Throat swelling, No Other Cardiovascular: No Chest Pain, No Palpitations, No Orthopnea, No Paroxysmal Noc. Dyspnea, No Edema, No Lt Headedness, No Other Respiratory: No Cough, No Dry; Shortness of breath; No SOB with excertion, No Wheezing, No Hemoptysis, No Pleuritic Pain, No Sputum, No Other Gastrointestinal: No Nausea, No Vomiting, No Abdominal Pain, No Diarrhea, No Constipation, No Melena, No Hematochezia, No Other Genitourinary: No Dysuria, No Frequency, No Incontinence, No Hematuria, No Retention, No Other Musculoskeletal: No other, No neck pain, No shoulder pain, No arm pain, No back pain, No hand pain, No leg pain, No foot pain Skin: No Rash, No Lesions, No Jaundice, No Bruising, No Other Objective Vitals Vital Signs Date Time Temp Pulse Resp B/P (MAP) Pulse Ox O2 Delivery O2 Flow Rate FiO2 03/03/25 06:27 80 16 100 03/03/25 06:20 Room Air* 0 21 03/03/25 04:36 97.8 122/55 (77) 97.8 Intake/Output Intake and Output 03/03/25 07:00 Intake Total 670 ml Balance 670 ml Intake Oral 670 ml # Voids 5 # Bowel Movements 1 General Appearance: Alert, Oriented X3, moderate distress Lungs: Clear to auscultation Cardiovascular: Regular rate, Normal S1, Normal S2 Abdomen: Normal bowel sounds, Soft, No tenderness Extremities: No edema Medications Current Medications Medications Dose Ordered Sig/Nicolas Route Start Time Stop Time Status Last Admin Dose Admin Ondansetron HCl 4 mg Q4HP PRN IV 02/10/25 17:00 02/20/25 08:49 4 MG Docusate Sodium 100 mg BIDPRN PRN PO 02/10/25 17:00 02/20/25 15:33 100 MG Acetaminophen 650 mg Q6HP PRN PO 02/10/25 17:00 03/02/25 16:00 650 MG Ipratropium [place] 0.5 mg Q4HPRN PRN NEB 02/10/25 17:30 02/17/25 08:03 0.5 MG Albuterol 2.5 mg Q4HPRN PRN NEB 02/10/25 17:30 02/17/25 08:03 2.5 MG Apixaban 5 mg BID PO 02/10/25 22:00 03/03/25 10:06 5 MG Calcium Carbonate 500 mg QIDPRN PRN PO 02/11/25 12:00 02/13/25 11:04 500 MG Albuterol 2.5 mg Q6HR NEB 02/17/25 18:00 03/03/25 06:20 2.5 MG Ipratropium [place] 0.5 mg Q6HR NEB 02/17/25 18:00 03/03/25 06:20 0.5 MG Artificial Tears 1 drop Q6HP PRN EACHEYE 02/20/25 15:00 Quetiapine Fumarate 25 mg HS PO 02/24/25 22:00 03/02/25 21:40 25 MG Acetaminophen 650 mg Q6HP PRN PO 02/25/25 17:15 02/27/25 21:36 650 MG Doxycycline Monohydrate 100 mg Q12HR PO 02/28/25 22:00 03/03/25 10:06 100 MG Prednisone 10 mg DAILY PO 03/01/25 10:00 03/03/25 10:06 10 MG Laboratory Results Laboratory Tests 03/03/25 05:21 Chemistry Test 03/03/25 05:21 Calcium Level 8.4 mg/dL (8.7-10.4) L Magnesium Level 2.2 mg/dL (1.6-2.6) Urinalysis Test 02/10/25 12:35 02/22/25 07:00 Urine Hyaline Casts Many /lpf (0 - 2) Urine Mucus Few (None Seen) Urine Color Light-yellow (Yellow) Urine Clarity Turbid (Clear) H Urine pH 8.5 (5.0-9.0) Urine Specific [place] 1.017 (1.001-1.035) Urine Protein Trace (Negative) H Urine Ketones Negative (Negative) Urine Blood 2+ /uL (Negative) H Urine Nitrite Negative (Negative) Urine Bilirubin Negative (Negative) Urine Urobilinogen Normal mg/dL (Negative) Urine Leukocyte Esterase Negative /uL (Negative) Urine RBC 160 /hpf (0 - 4) Urine Microscopic WBC 3 /HPF (0-5) Urine Squamous Epithelial Cells Few /hpf (<5) Urine Bacteria None seen /hpf (None Seen) Urine Glucose Normal mg/dL (Normal) Microbiology Microbiology Date/Time Source Procedure Growth Status 02/22/25 07:00 Urine - [place] Urine Culture - Final Complete 02/18/25 11:19 Nose MRSA Screen - Final Complete 02/13/25 19:00 Blood Blood Culture - Final NO GROWTH AFTER 5 DAYS OF INCUBATION. Complete Assessment/Plan Assessment/Plan Acute hypoxic respiratory failure COPD exacerbation Acute metabolic encephalopathy, resolved Hypoxemia, Possible lung mass, Transaminitis, Dehydration, Malnutrition, Atrial fibrillation, on Eliquis COPD, Neurofibromatosis sepsis with unclear source, suspected pna bacterial pneumonia colitis PLAN: Add steroids O2 prn Med Nebs IV antibiotics Eliquis Lasix Discussed with at the bedside 02/18/2025: Hypoxia with hypercapnia: Start high-flow oxygen Transferred to the [facility] Continue steroids Continue IV antibiotics ceftriaxone and vancomycin Lasix [place] catheter Midline Eliquis Discuss the plan of care with the patient and at the bedside Full code Monitor closely 02/19/2025: Sepsis: Switch Rocephin to meropenem Continue vancomycin Continue steroids Replace electrolytes as needed Eliquis Discussed with the at the bedside Full code except CPR 02/20/2025: Acute on chronic hypoxic and hypercapnic respiratory failure Pneumonia COPD Sepsis Atrial fibrillation Neurofibromatosis Meropenem and vancomycin High-flow oxygen, keep saturation between 88 and 90 IV steroids Eliquis Stopped Xanax Give Ativan p.r.n. IV 02/21/2025: Continue the current management with IV antibiotics and IV steroids Oxygen as needed Tapered down the oxygen to keep saturation 88-90 Monitor closely Discussed with the and daughter at the bedside 02/22/2025: Downgrade to telemetry Tapered down the oxygen as tolerated Physical therapy evaluation Meropenem Doxycycline Solu-Medrol Med neb treatments Lasix Eliquis Physical therapy Discharge planning for tomorrow 02/23/2025: Continue physical therapy Arrange SNF for rehab Repeat chest x-ray Repeat CT scan of the head to rule out stroke Continue the current management with IV antibiotics and steroids Discharge planning to SNF 02/24/2025: Metabolic encephalopathy Pneumonia COPD Acute on chronic hypoxic and hypercapnic respiratory failure Sepsis Continue meropenem and doxycycline Eliquis IV steroids, taper the dose Discontinue risperidone Discontinue Ativan Start Seroquel 25 mg at bedtime Monitor closely 02/25/2025: Continue the current management Physical therapy Swallow eval Keep NPO Discussed with the family at the bedside Discharge planning after physical therapy evaluation 02/27/2025: Continue the current management Physical therapy Out of bed as tolerated Pureed diet Monitor closely Discharge to SNF once a bed is available 02/28/2025: Continue current management Continue physical therapy Discharge to SNF as soon as a bed is available 03/02/2025: Discharge to SNF once a bed is available Continue physical therapy while she is here 03/03/2025: Discharge to SNF once a bed is available Continue physical therapy here Discussed with the and daughter at the bedside Plan discussed with: Patient, Spouse, Daughter Date of Service: Mar 03, 2025 Billing Provider: KRISTINA GARCIA MD Common Visit Codes: [id number] INP/OBS CARE(MOD) KRISTINA GARCIA MD Mar 03, 2025 10:24
--- NOTE | 2025-03-03 12:42 | DVHPN2 ---
Progress Note - Dictate Date Seen: Mar 03, 2025 Medical Necessity Reason Pt with a Central, PICC or Fol: No vital signs Vital Sign Date Time Temp Pulse Resp B/P (MAP) Pulse Ox O2 Delivery O2 Flow Rate FiO2 03/03/25 11:58 99 16 98 03/03/25 11:52 Nasal Cannula 2.0 03/03/25 11:52 28 03/03/25 04:36 97.8 122/55 (77) 97.8 Total Intake and Output 03/02/25 03/02/25 03/03/25 15:00 23:00 07:00 Intake Total 270 ml 400 ml Balance 270 ml 400 ml medications Current Medications Medications Dose Ordered Sig/Nicolas Route Start Time Stop Time Status Last Admin Dose Admin Ondansetron HCl 4 mg Q4HP PRN IV 02/10/25 17:00 02/20/25 08:49 4 MG Docusate Sodium 100 mg BIDPRN PRN PO 02/10/25 17:00 02/20/25 15:33 100 MG Acetaminophen 650 mg Q6HP PRN PO 02/10/25 17:00 03/03/25 10:47 650 MG Ipratropium [place] 0.5 mg Q4HPRN PRN NEB 02/10/25 17:30 02/17/25 08:03 0.5 MG Albuterol 2.5 mg Q4HPRN PRN NEB 02/10/25 17:30 02/17/25 08:03 2.5 MG Apixaban 5 mg BID PO 02/10/25 22:00 03/03/25 10:06 5 MG Calcium Carbonate 500 mg QIDPRN PRN PO 02/11/25 12:00 02/13/25 11:04 500 MG Albuterol 2.5 mg Q6HR NEB 02/17/25 18:00 03/03/25 11:52 2.5 MG Ipratropium [place] 0.5 mg Q6HR NEB 02/17/25 18:00 03/03/25 11:52 0.5 MG Artificial Tears 1 drop Q6HP PRN EACHEYE 02/20/25 15:00 Quetiapine Fumarate 25 mg HS PO 02/24/25 22:00 03/02/25 21:40 25 MG Acetaminophen 650 mg Q6HP PRN PO 02/25/25 17:15 02/27/25 21:36 650 MG Doxycycline Monohydrate 100 mg Q12HR PO 02/28/25 22:00 03/03/25 10:06 100 MG Prednisone 10 mg DAILY PO 03/01/25 10:00 03/03/25 10:06 10 MG laboratory and microbiology Laboratory Tests 03/03/25 05:21 Test 03/03/25 05:21 Range/Units Serum Glucose 81 74-106 mg/dL Assessment/Plan Impression Hypoxemic respiratory failure acute on chronic Pneumonia Pulmonary congestion COPD Cor pulmonale/pulmonary hypertension Chronic dependency on oxygen pl effusions -small Patient seen and examined Events Low oxygen requirements On 3 liters nasal cannula No acute events Labs and imaging reviewed Management plan Supplemental O2 as needed Maintain O2 sats above 90% nebs bronchodilators completed abx Continue steroids Diurese with Lasix Monitor renal function Replace electrolytes keep potassium above 4 Supportive care Nutrition GI and DVT prophylaxis awaiting placement Otherwise management per primary team Dietary Evaluation Review Comments: Nutrition Recommendation: 1) Ensure High Protein 240ml TID 2) Monitor PO intake, lab values, weight trend, and I/O Expected Outcomes/Goals: Intake to meet >75% estimated needs FU 3-5 days Plan discussed with: Patient CARMELITA GARLAND MD Mar 03, 2025 12:42
[2025-03-03] MEDS: ZOLPIDEM TARTRATE 5 MG TAB PO ONE (22:31)
[2025-03-04] VITALS (11 sets, daily range): BP systolic 101–107; BP diastolic 64–67; PULSE 84–106; RESP 16–20; TEMP 98–98.5; O2SAT 94–100
--- NOTE | 2025-03-04 09:58 | DVHPN2 ---
Subjective Doing well No new complaints Awaiting SNF Reviewed: Care Plan, H&P, Labs, Medications, Previous Orders, Radiology Changes from previous H/P or p: Changes General: Per HPI Eyes: No Pain, No Vision change, No Conjunctivae inflammation, No Eyelid inflammation, No Other, No Redness ENT: No Ear pain, No Ear discharge, No Nose pain, No Nose discharge, No Nose congestion, No Mouth pain, No Mouth swelling, No Throat pain, No Throat swelling, No Other Cardiovascular: No Chest Pain, No Palpitations, No Orthopnea, No Paroxysmal Noc. Dyspnea, No Edema, No Lt Headedness, No Other Respiratory: No Cough, No Dry; Shortness of breath; No SOB with excertion, No Wheezing, No Hemoptysis, No Pleuritic Pain, No Sputum, No Other Gastrointestinal: No Nausea, No Vomiting, No Abdominal Pain, No Diarrhea, No Constipation, No Melena, No Hematochezia, No Other Genitourinary: No Dysuria, No Frequency, No Incontinence, No Hematuria, No Retention, No Other Musculoskeletal: No other, No neck pain, No shoulder pain, No arm pain, No back pain, No hand pain, No leg pain, No foot pain Skin: No Rash, No Lesions, No Jaundice, No Bruising, No Other Objective Vitals Vital Signs Date Time Temp Pulse Resp B/P (MAP) Pulse Ox O2 Delivery O2 Flow Rate FiO2 03/04/25 07:39 87 18 100 03/04/25 07:36 Nasal Cannula* 2 28 03/04/25 05:00 98.1 101/64 (76) 98.1 Intake/Output Intake and Output 03/04/25 07:00 Intake Total 1200 ml Balance 1200 ml Intake Oral 1200 ml # Voids 6 # Bowel Movements 4 General Appearance: Alert, Oriented X3, moderate distress Lungs: Clear to auscultation Cardiovascular: Regular rate, Normal S1, Normal S2 Abdomen: Normal bowel sounds, Soft, No tenderness Extremities: No edema Medications Current Medications Medications Dose Ordered Sig/Nicolas Route Start Time Stop Time Status Last Admin Dose Admin Ondansetron HCl 4 mg Q4HP PRN IV 02/10/25 17:00 02/20/25 08:49 4 MG Docusate Sodium 100 mg BIDPRN PRN PO 02/10/25 17:00 02/20/25 15:33 100 MG Acetaminophen 650 mg Q6HP PRN PO 02/10/25 17:00 03/03/25 10:47 650 MG Ipratropium [place] 0.5 mg Q4HPRN PRN NEB 02/10/25 17:30 02/17/25 08:03 0.5 MG Albuterol 2.5 mg Q4HPRN PRN NEB 02/10/25 17:30 02/17/25 08:03 2.5 MG Apixaban 5 mg BID PO 02/10/25 22:00 03/04/25 09:55 5 MG Calcium Carbonate 500 mg QIDPRN PRN PO 02/11/25 12:00 02/13/25 11:04 500 MG Albuterol 2.5 mg Q6HR NEB 02/17/25 18:00 03/04/25 07:34 2.5 MG Ipratropium [place] 0.5 mg Q6HR NEB 02/17/25 18:00 03/04/25 07:34 0.5 MG Artificial Tears 1 drop Q6HP PRN EACHEYE 02/20/25 15:00 Quetiapine Fumarate 25 mg HS PO 02/24/25 22:00 03/03/25 22:31 25 MG Acetaminophen 650 mg Q6HP PRN PO 02/25/25 17:15 02/27/25 21:36 650 MG Doxycycline Monohydrate 100 mg Q12HR PO 02/28/25 22:00 03/04/25 09:55 100 MG Prednisone 10 mg DAILY PO 03/01/25 10:00 03/04/25 09:55 10 MG Laboratory Results Laboratory Tests 03/03/25 05:21 Urinalysis Test 02/10/25 12:35 02/22/25 07:00 Urine Hyaline Casts Many /lpf (0 - 2) Urine Mucus Few (None Seen) Urine Color Light-yellow (Yellow) Urine Clarity Turbid (Clear) H Urine pH 8.5 (5.0-9.0) Urine Specific [place] 1.017 (1.001-1.035) Urine Protein Trace (Negative) H Urine Ketones Negative (Negative) Urine Blood 2+ /uL (Negative) H Urine Nitrite Negative (Negative) Urine Bilirubin Negative (Negative) Urine Urobilinogen Normal mg/dL (Negative) Urine Leukocyte Esterase Negative /uL (Negative) Urine RBC 160 /hpf (0 - 4) Urine Microscopic WBC 3 /HPF (0-5) Urine Squamous Epithelial Cells Few /hpf (<5) Urine Bacteria None seen /hpf (None Seen) Urine Glucose Normal mg/dL (Normal) Microbiology Microbiology Date/Time Source Procedure Growth Status 02/22/25 07:00 Urine - [place] Urine Culture - Final Complete 02/18/25 11:19 Nose MRSA Screen - Final Complete 02/13/25 19:00 Blood Blood Culture - Final NO GROWTH AFTER 5 DAYS OF INCUBATION. Complete Assessment/Plan Assessment/Plan Acute hypoxic respiratory failure COPD exacerbation Acute metabolic encephalopathy, resolved Hypoxemia, Possible lung mass, Transaminitis, Dehydration, Malnutrition, Atrial fibrillation, on Eliquis COPD, Neurofibromatosis sepsis with unclear source, suspected pna bacterial pneumonia colitis PLAN: Add steroids O2 prn Med Nebs IV antibiotics Eliquis Lasix Discussed with at the bedside 02/18/2025: Hypoxia with hypercapnia: Start high-flow oxygen Transferred to the [facility] Continue steroids Continue IV antibiotics ceftriaxone and vancomycin Lasix [place] catheter Midline Eliquis Discuss the plan of care with the patient and at the bedside Full code Monitor closely 02/19/2025: Sepsis: Switch Rocephin to meropenem Continue vancomycin Continue steroids Replace electrolytes as needed Eliquis Discussed with the at the bedside Full code except CPR 02/20/2025: Acute on chronic hypoxic and hypercapnic respiratory failure Pneumonia COPD Sepsis Atrial fibrillation Neurofibromatosis Meropenem and vancomycin High-flow oxygen, keep saturation between 88 and 90 IV steroids Eliquis Stopped Xanax Give Ativan p.r.n. IV 02/21/2025: Continue the current management with IV antibiotics and IV steroids Oxygen as needed Tapered down the oxygen to keep saturation 88-90 Monitor closely Discussed with the and daughter at the bedside 02/22/2025: Downgrade to telemetry Tapered down the oxygen as tolerated Physical therapy evaluation Meropenem Doxycycline Solu-Medrol Med neb treatments Lasix Eliquis Physical therapy Discharge planning for tomorrow 02/23/2025: Continue physical therapy Arrange SNF for rehab Repeat chest x-ray Repeat CT scan of the head to rule out stroke Continue the current management with IV antibiotics and steroids Discharge planning to SNF 02/24/2025: Metabolic encephalopathy Pneumonia COPD Acute on chronic hypoxic and hypercapnic respiratory failure Sepsis Continue meropenem and doxycycline Eliquis IV steroids, taper the dose Discontinue risperidone Discontinue Ativan Start Seroquel 25 mg at bedtime Monitor closely 02/25/2025: Continue the current management Physical therapy Swallow eval Keep NPO Discussed with the family at the bedside Discharge planning after physical therapy evaluation 02/27/2025: Continue the current management Physical therapy Out of bed as tolerated Pureed diet Monitor closely Discharge to SNF once a bed is available 02/28/2025: Continue current management Continue physical therapy Discharge to SNF as soon as a bed is available 03/02/2025: Discharge to SNF once a bed is available Continue physical therapy while she is here 03/03/2025: Discharge to SNF once a bed is available Continue physical therapy here Discussed with the and daughter at the bedside 03/04/24: DC to SNF once a bed is available Continue PT Plan discussed with: Patient, Spouse My Orders Orders - KRISTINA GARCIA MD Procedure Category Date Status Time Regular Diet DIET 03/03/25 Transmitted Dinner Date of Service: Mar 04, 2025 Billing Provider: KRISTINA GARCIA MD Common Visit Codes: [id number] INP/OBS CARE(MOD) KRISTINA GARCIA MD Mar 04, 2025 09:58
--- NOTE | 2025-03-04 23:47 | DVHPN2 ---
Progress Note - Dictate Date Seen: Mar 04, 2025 Medical Necessity Reason Pt with a Central, PICC or Fol: Yes The following are medically ne: Bee Catheter Reason for bee catheter: Strict I&O Subjective Patient seen and examined at bedside. Remains on supplemental oxygen Overnight events reviewed. vital signs Vital Sign Date Time Temp Pulse Resp B/P (MAP) Pulse Ox O2 Delivery O2 Flow Rate FiO2 03/04/25 13:26 101 18 99 03/04/25 13:00 98.0 104/67 (79) 98.0 03/04/25 08:00 Nasal Cannula* 2 28 Total Intake and Output 03/03/25 03/03/25 03/04/25 15:00 23:00 07:00 Intake Total 500 ml 700 ml Balance 500 ml 700 ml objective Gen.: Patient lying in bed in no apparent distress. On supplemental oxygen. Head: Normocephalic, atraumatic. Eyes: EOMI/PERRLA. Ears: Normal hearing. Normal anatomy. Neck/trachea: Trachea midline, supple. Nose: Normal external anatomy. Mouth: Moist mucous membranes. Chest: Decreased air entry bilaterally. No wheezing or rhonchi. Cardiovascular: Positive S1, positive S2. Regular rate and rhythm. Abdomen: Positive bowel sounds in all 4 quadrants. Soft, non-tender, non- distended. : Deferred. Rectal: Deferred. Skin: Warm, dry. Intact. Extremities: 2+ radial pulses bilaterally. No lower extremity edema. Neuro: Awake, alert, oriented x3. No gross motor or sensory deficits. Cranial nerves II through XII intact. Gait not assessed. laboratory and microbiology Laboratory Tests 03/03/25 05:21 Test 03/03/25 05:21 Range/Units Serum Glucose 81 74-106 mg/dL Assessment/Plan Impression: Acute on chronic hypoxic respiratory failure Dependence on supplemental oxygen Pneumonia Pulmonary congestion Chronic obstructive pulmonary disease Cor pulmonale/pulmonary hypertension Pleural effusions Atelectasis Plan: Supplemental oxygen Titrate to keep O2 sats above 92%. On 2 LPM NC Taper O2 as tolerated. Continue bronchodilators. Continue antibiotics Incentive spirometry Eliquis PO BID Monitor renal function. Monitor electrolytes. Supplement as necessary. Monitor ins and outs. Maintain euvolemia Patient is stable for discharge from the pulmonary standpoint. Disposition per hospitalist. Plan for SNF placement DVT prophylaxis. Prognosis: Poor given patient's multiple co-morbidities. Rest of plan per hospitalist and other consultants. Thank you, Dr. Castaneda, for allowing me to participate in this patient's care. Further recommendations will depend on the patient's clinical course. Please do not hesitate to contact me if you have any questions or concerns. This medical document was created using an electronic medical record system with [employer] dictation system. Although these documentations are being carefully reviewed, there may still be some phonetic and typographical changes. The errors are purely typographical, due to imperfection on the software program, and do not reflect any compromise in the patient's medical care. Dietary Evaluation Review Comments: Nutrition Recommendation: 1) Ensure High Protein 240ml TID 2) Monitor PO intake, lab values, weight trend, and I/O Expected Outcomes/Goals: Intake to meet >75% estimated needs FU 3-5 days Plan discussed with: Patient, Other (ROSALBA Ann) [facility] Mar 04, 2025 23:47
== END 2025-03-04 15:30 | DRG 871 ==
LOC: EDBD 11:36 → ER 11:36 → OVERFLOW 16:58 → EAST 18:44 → CENTRAL 02-13 17:05 → ICU WEST 02-18 10:43 → DOU 02-18 17:39 → TELE-CENTR 02-22 17:26 → CENTRAL 03-01 10:01
PROVIDERS: ADMIT Internal Medicine Geriatric Medicine; ATTEND Internal Medicine Geriatric Medicine
PROC: 5A0935A Assistance with Respiratory Ventilation, Less than 24 Consecutive Hours, High Flow/Velocity Cannula (ICD-10-PCS; principal; 2025-02-18)
PROC: 5A0945A Assistance with Respiratory Ventilation, 24-96 Consecutive Hours, High Flow/Velocity Cannula (ICD-10-PCS; 2025-02-19)
PROC: 05HC33Z Insertion of Infusion Device into Left Basilic Vein, Percutaneous Approach (ICD-10-PCS; 2025-02-19)
PROC: B54NZZA Ultrasonography of Left Upper Extremity Veins, Guidance (ICD-10-PCS; 2025-02-19)
DX: A41.9 Sepsis, unspecified organism (principal); G93.41 Metabolic encephalopathy; J96.21 Acute and chronic respiratory failure with hypoxia; J15.9 Unspecified bacterial pneumonia; J96.22 Acute and chronic respiratory failure with hypercapnia; J15.69 Pneumonia due to other Gram-negative bacteria; J90 Pleural effusion, not elsewhere classified; E46 Unspecified protein-calorie malnutrition; E87.0 Hyperosmolality and hypernatremia; J44.0 Chronic obstructive pulmonary disease with (acute) lower respiratory infection; Z79.01 Long term (current) use of anticoagulants; I27.29 Other secondary pulmonary hypertension; I10 Essential (primary) hypertension; J44.1 Chronic obstructive pulmonary disease with (acute) exacerbation; J98.11 Atelectasis; I42.9 Cardiomyopathy, unspecified; R13.10 Dysphagia, unspecified; E86.0 Dehydration; I48.91 Unspecified atrial fibrillation; R74.01 Elevation of levels of liver transaminase levels; K52.9 Noninfective gastroenteritis and colitis, unspecified; Q85.00 Neurofibromatosis, unspecified; Z68.20 Body mass index [BMI] 20.0-20.9, adult; Z99.81 Dependence on supplemental oxygen
CPT/HCPCS: 36415; 36600; 70450; 71045; 71260; 74176; 80048; 80053; 80202; 80307; 81001; 82565; 82805; 83605; 83735; 85007; 85025; 85027; 87040; 87081; 87086; 87088; 92610; 93005; 94640; 96360; 97110; 97116; 97163; 97530; G0378; J2185; J2405